=== PATIENT | male | born 1955 | race Caucasian/White ===

== ENCOUNTER 2017-06-11 02:59 | Inpatient (IN) | payer MEDICAID ==
[~2017-06-11] VITALS: Ht 185.4 cm; Wt 72.2 kg
[2017-06-11] VITALS (10 sets, daily range): BP systolic 99–142; BP diastolic 57–98; PULSE 96–108; RESP 17–27; TEMP 95.4–98.1; O2SAT 93–100
[~2017-06-11 02:59] MED LIST: TRAM50 PO
[2017-06-11] MEDS ORDERED: METH500T3 PO (03:10)
[2017-06-11] MEDS ORDERED: GABA600T PO (03:10)
--- NOTE | 2017-06-11 03:18 | PD ---
HPI Chief Complaint: Respiratory Distress Time Seen by Provider: 03:05 Travel History International Travel<30 days: No Contact w/Intl Traveler<30days: No Traveled to known affect area: No History of Present Illness HPI 62-year-old male complains of shortness of breath coughing congestion. Patient states that the symptoms started several days ago and is worse today. Patient states the cough is intermittent and productive. Patient denies any chest pain. Patient states that shortness breath is worse today. Patient denies any nausea vomiting diarrhea. Patient has history of COPD. Patient is a smoker. PFSH Past Medical History Anxiety: Yes Depression: Yes Cancer: No Cardiovascular Problems: No Chemotherapy: No COPD: Yes (WAS TOLD HAS EMPHYSEMA) Diabetes: No Diminished Hearing: No Genitourinary: No ( ) Musculoskeletal: Yes (CHRONIC BACK PAIN) Neurologic: Yes Respiratory: No Migraines: Yes Radiation Therapy: No Seizures: Yes (ABOUT 2 MONTHS AGO) Social History Alcohol Use: No Tobacco Use: Yes Substance Use: No Allergies-Medications (Allergen,Severity, Reaction): Coded Allergies: No Known Allergies (Unverified , 06/11/17) Reported Meds & Prescriptions Reported Meds & Active Scripts Active Reported Methocarbamol 500 Mg Tab 350 Mg PO BID Gabapentin 600 Mg Tab 600 Mg PO HS Review of Systems General / Constitutional: No: Fever Eyes: No: Visual changes HENT: No: Headaches Cardiovascular: No: Chest Pain or Discomfort Respiratory: Positive: Cough, Shortness of Breath Gastrointestinal: No: Abdominal Pain Genitourinary: No: Dysuria Musculoskeletal: No: Pain Skin: No Rash Neurologic: No: Weakness Psychiatric: No: Depression Endocrine: No: Polydipsia Hematologic/Lymphatic: No: Easy Bruising Physical Exam Narrative GENERAL: Well-nourished, well-developed patient. SKIN: Focused skin assessment warm/dry. HEAD: Normocephalic. EYES: No scleral icterus. No injection or drainage. NECK: Supple, trachea midline. No JVD or lymphadenopathy. CARDIOVASCULAR: Regular rate and rhythm without murmurs, gallops, or rubs. RESPIRATORY: Breath sounds equal bilaterally. No accessory muscle use. Patient has moderate rhonchi at the bases. No wheezes. GASTROINTESTINAL: Abdomen soft, non-tender, nondistended. MUSCULOSKELETAL: No cyanosis. Patient had +1 pitting edema lower extremity. BACK: Nontender without obvious deformity. No CVA tenderness. Neurologic exam normal. Data Data Last Documented VS Vital Signs Date Time Temp Pulse Resp B/P (MAP) Pulse Ox O2 Delivery O2 Flow Rate FiO2 06/11/17 03:29 99 Nasal Cannula 2.00 06/11/17 03:15 25 06/11/17 03:01 97.9 108 142/98 (113) Orders Orders Electrocardiogram (06/11/17 03:10) Complete Blood Count With Diff (06/11/17 03:10) Comprehensive Metabolic Panel (06/11/17 03:10) Creatine Kinase (Cpk) (06/11/17 03:10) Troponin I (06/11/17 03:10) B-Type Natriuretic Peptide (06/11/17 03:10) Prothrombin Time / Inr (Pt) (06/11/17 03:10) Act Partial Throm Time (Ptt) (06/11/17 03:10) Blood Culture (06/11/17 03:10) D-Dimer (06/11/17 03:10) Chest, Single Ap (06/11/17 03:10) Iv Access Insert/Monitor (06/11/17 03:10) Ecg Monitoring (06/11/17 03:10) Oximetry (06/11/17 03:10) Lactic Acid (06/11/17 03:10) Arterial Blood Gas (Abg) (06/11/17 03:03) Furosemide Inj (Lasix Inj) (06/11/17 05:00) Potassium Chloride (Kcl) (06/11/17 05:00) Labs Laboratory Tests Test 06/11/17 03:03 06/11/17 03:10 06/11/17 03:15 Lactic Acid Level 2.3 mmol/L White Blood Count 8.2 TH/MM3 Red Blood Count 3.69 MIL/MM3 Hemoglobin 10.5 GM/DL Hematocrit 33.1 % Mean Corpuscular Volume 89.9 FL Mean Corpuscular Hemoglobin 28.5 PG Mean Corpuscular Hemoglobin Concent 31.7 % Red Cell Distribution Width 17.2 % Platelet Count 119 TH/MM3 Mean Platelet Volume 10.0 FL Neutrophils (%) (Auto) 65.1 % Lymphocytes (%) (Auto) 22.1 % Monocytes (%) (Auto) 9.9 % Eosinophils (%) (Auto) 2.4 % Basophils (%) (Auto) 0.5 % Neutrophils # (Auto) 5.3 TH/MM3 Lymphocytes # (Auto) 1.8 TH/MM3 Monocytes # (Auto) 0.8 TH/MM3 Eosinophils # (Auto) 0.2 TH/MM3 Basophils # (Auto) 0.0 TH/MM3 CBC Comment DIFF FINAL Differential Comment Prothrombin Time 15.3 SEC Prothromb Time International Ratio 1.4 RATIO Activated Partial Thromboplast Time 30.2 SEC D-Dimer Quantitative (PE/DVT) 1.62 MG/L FEU Blood Urea Nitrogen 25 MG/DL Creatinine 1.13 MG/DL Random Glucose 106 MG/DL Total Protein 6.5 GM/DL Albumin 3.5 GM/DL Calcium Level 8.0 MG/DL Alkaline Phosphatase 158 U/L Aspartate Amino Transf (AST/SGOT) 23 U/L Alanine Aminotransferase (ALT/SGPT) 141 U/L Total Bilirubin 1.4 MG/DL Sodium Level 134 MEQ/L Potassium Level 3.8 MEQ/L Chloride Level 101 MEQ/L Carbon Dioxide Level 23.7 MEQ/L Anion Gap 9 MEQ/L Estimat Glomerular Filtration Rate 66 ML/MIN Total Creatine Kinase 61 U/L Troponin I 0.09 NG/ML B-Type Natriuretic Peptide 2863 PG/ML MDM Medical Decision Making Medical Screen Exam Complete: Yes Emergency Medical Condition: Yes Interpretation(s) Last Impressions Chest X-Ray 06/11/17309 Signed Impressions: Service Date/Time: May 03:19 - CONCLUSION: Probable CHF Juan Miguel Marroquin MD 4:57 AM. CBC within normal limit. Sodium 134. UN 25. Lactic acid 2.3. Calcium 8.0. Total bili 1.4. ALT 141. Alkaline phosphatase 158. Troponin 0.09. BNP 2863. INR 1.4. D-dimer 1.62. Differential Diagnosis Differential diagnosis including acute exacerbation COPD, bronchitis, pneumonia , PE, pneumothorax. Narrative Course 62-year-old male with shortness of breath. History of COPD. Clinically patient is in CHF. Lasix 40 mg IV given. Potassium KCl 20 mEq by mouth given. Diagnosis Primary Impression: CHF (congestive heart failure) Qualified Codes: I50.9 - Heart failure, unspecified Admitting Information Admitting Physician Requests: Admit Immanuel Yeager MD Jun 11, 2017 03:18
[2017-06-11 03:19] LABS: BLOOD GAS BASE EXCESS -3.5 mmol/L (-2-2); BLOOD GAS CARBOXYHEMOGLOBIN 3.4 % (0-4); BLOOD GAS HCO3 20 mmol/L (22-26); BLOOD GAS METHEMOGLOBIN 0.5 % (0-2); BLOOD GAS O2 HGB SATURATION 93 % (90-100); BLOOD GAS OXYGEN CONTENT 14.3 Vol % (12.0-20.0); BLOOD GAS PCO2 28 mmHg (38-42); BLOOD GAS PO2 79 mmHG (61-120); BLOOD GAS TOTAL HGB 10.9 G/DL (12.0-16.0); TEMP CORR TO 98.6
[2017-06-11 03:20] LABS: CRITICAL VALUE NO; DRAW SITE RT RADIAL; LITER FLOW 2 L/M; NUMBER OF ARTERIAL PUNCTURES 1; OXYGEN DEVICE NASAL CANNULA; STAT YES; ULNAR PULSE PRESENT
[2017-06-11 03:28] LABS: AUTOMATED NEUTROPHIL # 5.3 TH/MM3 (1.8-7.7); BASOPHIL % 0.5 % (0.0-2.0); EOSINOPHIL # 0.2 TH/MM3 (0-0.4); EOSINOPHIL % 2.4 % (0.0-4.0); HEMATOCRIT 33.1 % (39.0-51.0); HEMO FLAGS DIFF FINAL; LYMPH % 22.1 % (9.0-44.0); LYMPHOCYTE # 1.8 TH/MM3 (1.0-4.8); MEAN CELL VOLUME 89.9 FL (80.0-100.0); MEAN CORPUSCULAR HEMOGLOBIN 28.5 PG (27.0-34.0); MEAN CORPUSCULAR HGB CONC 31.7 % (32.0-36.0); MONO % 9.9 % (0.0-8.0); NEUT % 65.1 % (16.0-70.0); PLATELET COUNT 119 TH/MM3 (150-450); RED BLOOD COUNT 3.69 MIL/MM3 (4.50-5.90); RED CELL DISTRIBUTION WIDTH 17.2 % (11.6-17.2); WHITE BLOOD COUNT 8.2 TH/MM3 (4.0-11.0)
--- NOTE | 2017-06-11 03:43 | RADRPT ---
EXAM DATE/TIME: 06/11/2017 03:19 [place] COMPARISON: No previous studies available for comparison. INDICATIONS : Cough, shortness of breath for 2 weeks MEDICAL HISTORY : Chronic obstructive pulmonary disease. SURGICAL HISTORY : None. ENCOUNTER: Initial ACUITY: 2 weeks PAIN SCORE: 5/10 LOCATION: Bilateral chest FINDINGS: Hazy bilateral primarily lower lung zone pleuroparenchymal opacities may be edema area heart size perry ears to be upper limits of normal. Mild central vascular congestion and interstitial thickening is pr esent. CONCLUSION: Probable CHF Juan Miguel Marroquin MD on June 11, 2017 at 3:40 Board Certified Radiologist. This report was verified electronically.
[2017-06-11 03:47] LABS: APTT (PATIENT) 30.2 SEC (24.3-30.1); INTERNATIONAL NORMALIZED RATIO 1.4 RATIO; PROTHROMBIN TIME - PATIENT 15.3 SEC (9.8-11.6)
[2017-06-11 03:49] LABS: ALT (GPT) 141 U/L (12-78); ANION GAP 9 MEQ/L (5-15); AST (GOT) 23 U/L (15-37); BICARBONATE 23.7 MEQ/L (21.0-32.0); BLOOD UREA NITROGEN 25 MG/DL (7-18); CHLORIDE 101 MEQ/L (98-107); GLOMERULAR FILTRATION RATE 66 ML/MIN (>89); POTASSIUM 3.8 MEQ/L (3.5-5.1); SODIUM (NA) 134 MEQ/L (136-145)
[2017-06-11 03:53] LABS: ALKALINE PHOSPHATASE 158 U/L (45-117); TOTAL BILIRUBIN ADULT 1.4 MG/DL (0.2-1.0)
[2017-06-11 03:54] LABS: CREATINE KINASE 61 U/L (39-308)
[2017-06-11] MEDS ORDERED: FUROSEMIDE 40 MG/4 ML VIAL IV PUSH ONE (05:00)
[2017-06-11] MEDS ORDERED: POTASSIUM CHLORIDE 20 MEQ CONTROLLED RELEASE TAB PO ONE (05:00)
[2017-06-11] MEDS ORDERED: SODIUM CHLORIDE 0.9% FLUSH 10 ML FLUSH IV FLUSH PRN (05:15)
[2017-06-11] MEDS ORDERED: RESP: IPRATROPIUM 0.5 MG/2.5 ML NEB NEB PRN (05:15)
[2017-06-11] MEDS ORDERED: NALOXONE HCL 0.4 MG/ML AMP IV PUSH PRN (05:15)
--- NOTE | 2017-06-11 08:36 | HHI.HP ---
[facility] Mer[facility] MD Admission Diagnosis CHF Diagnoses: Chief Complaint: Shortness of breath Travel History International Travel<30 Days: No Contact w/Intl Traveler <30 Da: No Traveled to Known Affected Are: No History of Present Illness 62-year-old male with a past medical history of COPD and chronic back pain who presented for shortness of breath. The patient states that he presented because of his COPD. He has been having shortness of breath. He states he was diagnosed with COPD by his PCP, Dr. Collins. He does not take any medications at home for COPD. He denies any recent illness, fever, chills. He does continue to smoke. He has a chronic dry cough, unchanged. He denies any history of heart disease. He denies any chest pain. He has noticed that his legs are more swollen over the past week. He uses 2 pillows to sleep at night. The patient endorses shortness of breath. He says he is able to lay flat on his back. He does endorse a chronic cough. He has noticed lower extremity swelling. He continues to smoke. Review of Systems Except as stated in HPI: all other systems reviewed are Neg Past Family Social History Past Medical History COPD Chronic back pain Past Surgical History None Reported Medications Reported Methocarbamol 500 Mg Tab 350 Mg PO BID Gabapentin 600 Mg Tab 600 Mg PO HS Allergies: Coded Allergies: No Known Allergies (Unverified , 06/11/17) Active Ordered Medications Current Medications Medications (Trade) Dose Ordered Sig/Rosie Route Start Time Stop Time Status Last Admin (NS Flush) 2 ml UNSCH PRN IV FLUSH 06/11/17 05:15 (NS Flush) 2 ml BID IV FLUSH 06/11/17 09:00 (Narcan Inj) 0.4 mg UNSCH PRN IV PUSH 06/11/17 05:15 (Lasix Inj) 40 mg BID@09,18 IV PUSH 06/11/17 09:00 (Atrovent Neb) 0.5 mg Q2HR NEB PRN NEB 06/11/17 05:15 (Atrovent Neb) 0.5 mg Q6HR NEB NEB 06/11/17 10:00 (Pneumovax-23 Inj) 25 mcg ONCE ONCE IM 06/12/17 10:00 06/12/17 10:01 (Flu (Quadrivalent) Vaccine Inj) 0.5 ml ONCE ONCE IM 06/12/17 10:00 06/12/17 10:01 Family History Reviewed, denies any family history of heart disease or diabetes Social History Current tobacco use Denies any alcohol or drug use Physical Exam Vital Signs Vital Signs Date Time Temp Pulse Resp B/P (MAP) Pulse Ox O2 Delivery O2 Flow Rate FiO2 06/11/17 07:28 95.4 107 27 126/89 (101) 99 06/11/17 06:26 06/11/17 06:05 98.1 106 17 128/74 (92) 100 06/11/17 05:48 97.5 105 24 131/84 (100) 100 Nasal Cannula 2.00 06/11/17 03:29 99 Nasal Cannula 2.00 06/11/17 03:15 25 99 Nasal Cannula 2.00 06/11/17 03:01 97.9 108 25 142/98 (113) 99 Physical Exam GENERAL: Well-developed well-nourished. In no acute distress. SKIN: Warm and dry. No lesions noted. HEENT: Normocephalic. Pupils equal and round. Mucous membranes pink and moist. CARDIOVASCULAR: Regular rate and rhythm. No murmur appreciated. RESPIRATORY: No accessory muscle use. Clear to auscultation. Bibasilar crackles. GASTROINTESTINAL: Abdomen soft, non-tender, nondistended. Bowel sounds x4. MUSCULOSKELETAL: No obvious deformities. No clubbing or cyanosis. 1+ bilateral lower extremity pitting edema. NEUROLOGICAL: Awake and alert. No focal neurological deficits. Moves upper and lower extremities spontaneously. Normal speech. PSYCHIATRIC: Appropriate mood and affect; insight and judgment normal. Laboratory Laboratory Tests Test 06/11/17 03:03 06/11/17 03:10 06/11/17 03:15 Blood Gas Puncture Site RT RADIAL Blood Gas Patient Temperature 98.6 Blood Gas HCO3 20 Blood Gas Base Excess -3.5 Blood Gas Oxygen Saturation 93 Arterial Blood pH 7.46 Arterial Blood Partial Pressure CO2 28 Arterial Blood Partial Pressure O2 79 Arterial Blood Oxygen Content 14.3 Arterial Blood Carboxyhemoglobin 3.4 Arterial Blood Methemoglobin 0.5 Blood Gas Hemoglobin 10.9 Oxygen Delivery Device NASAL CANNULA Blood Gas Liter Flow 2 Lactic Acid Level 2.3 White Blood Count 8.2 Red Blood Count 3.69 Hemoglobin 10.5 Hematocrit 33.1 Mean Corpuscular Volume 89.9 Mean Corpuscular Hemoglobin 28.5 Mean Corpuscular Hemoglobin Concent 31.7 Red Cell Distribution Width 17.2 Platelet Count 119 Mean Platelet Volume 10.0 Neutrophils (%) (Auto) 65.1 Lymphocytes (%) (Auto) 22.1 Monocytes (%) (Auto) 9.9 Eosinophils (%) (Auto) 2.4 Basophils (%) (Auto) 0.5 Neutrophils # (Auto) 5.3 Lymphocytes # (Auto) 1.8 Monocytes # (Auto) 0.8 Eosinophils # (Auto) 0.2 Basophils # (Auto) 0.0 CBC Comment DIFF FINAL Differential Comment Prothrombin Time 15.3 Prothromb Time International Ratio 1.4 Activated Partial Thromboplast Time 30.2 D-Dimer Quantitative (PE/DVT) 1.62 Blood Urea Nitrogen 25 Creatinine 1.13 Random Glucose 106 Total Protein 6.5 Albumin 3.5 Calcium Level 8.0 Alkaline Phosphatase 158 Aspartate Amino Transf (AST/SGOT) 23 Alanine Aminotransferase (ALT/SGPT) 141 Total Bilirubin 1.4 Sodium Level 134 Potassium Level 3.8 Chloride Level 101 Carbon Dioxide Level 23.7 Anion Gap 9 Estimat Glomerular Filtration Rate 66 Total Creatine Kinase 61 Troponin I 0.09 B-Type Natriuretic Peptide 2863 Date/Time Source Procedure Growth Status 06/11/17 03:15 Blood Peripheral Aerobic Blood Culture Pending Received 06/11/17 03:15 Blood Peripheral Anaerobic Blood Culture Pending Received Result Diagram: 06/11/1731406/11/17314 Imaging Last Impressions Chest X-Ray 06/11/17309 Signed Impressions: Service Date/Time: May 03:19 - CONCLUSION: Probable CHF MD Moses Parham VTE Risk Assessment Moses VTE Risk Assessment: Mod/High Risk (score >= 2) Caprini Risk Assessment Model Point Value = 1 Point Value = 2 Point Value = 3 Point Value = 5 Age 41-60 Minor surgery BMI > 25 kg/m2 Swollen legs Varicose veins or History of unexplained or recurrent spontaneous Oral contraceptives or hormone replacement Sepsis (< 1 month) Serious lung disease, including pneumonia (< 1 month) Abnormal pulmonary function Acute myocardial infarction Congestive heart failure (< 1 month) History of inflammatory bowel disease Medical patient at bed rest Age 61-74 Arthroscopic surgery Major open surgery (> 45 min) Laparoscopic surgery (> 45 min) Malignancy Confined to bed (> 72 hours) Immobilizing plaster cast Central venous access Age >= 75 History of VTE Family history of VTE Factor V Leiden Prothrombin [id number] Lupus anticoagulant Anticardiolipin antibodies Elevated serum homocysteine Heparin-induced thrombocytopenia Other congenital or acquired thrombophilia Stroke (< 1 month) Elective arthroplasty Hip, pelvis, or leg fracture Acute spinal cord injury (< 1 month) Prophylaxis Regimen Total Risk Factor Score Risk Level Prophylaxis Regimen 0-1 Low Early ambulation 2 Moderate Order ONE of the following: *Sequential Compression Device (SCD) *Heparin 5000 units SQ BID 3-4 Higher Order ONE of the following medications: *Heparin 5000 units SQ TID *Enoxaparin/Lovenox 40 mg SQ daily (WT < 150 kg, CrCl > 30 mL/min) *Enoxaparin/Lovenox 30 mg SQ daily (WT < 150 kg, CrCl > 10-29 mL/min) *Enoxaparin/Lovenox 30 mg SQ BID (WT < 150 kg, CrCl > 30 mL/min) AND/OR *Sequential Compression Device (SCD) 5 or more Highest Order ONE of the following medications: *Heparin 5000 units SQ TID (Preferred with Epidurals) *Enoxaparin/Lovenox 40 mg SQ daily (WT < 150 kg, CrCl > 30 mL/min) *Enoxaparin/Lovenox 30 mg SQ daily (WT < 150 kg, CrCl > 10-29 mL/min) *Enoxaparin/Lovenox 30 mg SQ BID (WT < 150 kg, CrCl > 30 mL/min) AND *Sequential Compression Device (SCD) Assessment and Plan Assessment and Plan 62-year-old male with a past medical history of COPD and chronic back pain who presented for shortness of breath Acute congestive heart failure, new onset: On exam pulmonary crackles and lower extremity edema. Chest x-ray personally reviewed with cardiomegaly and edema. BNP 2863. -Continue diuresis with IV Lasix and monitor intake and output and electrolytes -Check echocardiogram -Start carvedilol Cardiology consult appreciated. Consider stress test. Continue diuresis. Echocardiogram pending. Elevated troponin: Troponin 0.09, no complaints of chest pain, possibly due to CHF as above. EKG reviewed with new lateral T-wave inversions. -Start daily aspirin -Consult cardiology Possible stress test per cardiology. COPD: Chronic, does not seem to be in acute exacerbation. -Continue scheduled and as needed ipratropium with borderline tachycardia -O2 as needed Continue oxygen and nebs as needed. Encourage ambulation. Chronic back pain: Stable. -Continue home gabapentin and Robaxin DVT prophylaxis: SCDs Discussed Condition With Patient, Dr. Preez Attending Statement The exam, history, and the medical decision-making described in the above note were completed with the assistance of the mid-level provider. I reviewed and agree with the findings presented. I attest that I had a [id number] encounter with the patient on the same day, and personally performed and documented my assessment and findings in the medical record. Chino Tee Jun 11, 2017 08:36 Vamsi Perez DO Jun 11, 2017 15:35
[2017-06-11] MEDS: FUROSEMIDE 40 MG/4 ML VIAL IV PUSH SCH ×2 (09:00→18:00)
[2017-06-11] MEDS ORDERED: METHOCARBAMOL 500 MG TAB PO SCH (09:00)
[2017-06-11] MEDS: RESP: IPRATROPIUM 0.5 MG/2.5 ML NEB NEB SCH ×3 (09:58→21:12)
--- NOTE | 2017-06-11 10:45 | MB ---
cc: KAROL ELLIS DATE OF CONSULTATION 06/11/2017 INDICATION Elevated troponin, congestive heart failure. HISTORY OF PRESENT ILLNESS This is a 62-year-old gentleman with a prior history of COPD, chronic back pain, but no prior history of known heart disease. He presented to the emergency department with progressive shortness of breath. He has longstanding COPD, but does not take any routine medications at home for this. He is a long-term tobacco user. He has had a non-nonproductive dry cough. He has noticed a little bit of puffiness in his feet and progressive shortness of breath which brought him into the emergency department. There, his BNP was elevated. Crackles were noted on exam he and he was diagnosed with congestive heart failure. Echocardiogram was ordered, chest x-ray and intravenous Lasix. The patient symptomatically states that he has been feeling a little bit better here today this morning after some nebulizers and I suspect diuresis. Troponins are in the intermediate range. We are consulted for further recommendations. He denies any chest pain or prior cardiac history or workup. PAST MEDICAL HISTORY COPD, chronic back pain. MEDICATIONS 1. Methocarbamol 2. Gabapentin ALLERGIES NO KNOWN DRUG ALLERGIES. REVIEW OF SYSTEMS A 12-point review of systems was performed and is negative unless as otherwise noted in the history of illness. ALLERGIES NO KNOWN DRUG ALLERGIES. FAMILY HISTORY Negative family history of early coronary disease or sudden cardiac . SOCIAL HISTORY Denies any alcohol or drug use. Does report tobacco use of a pack a day. PHYSICAL EXAM VITAL SIGNS: Temperature 95, pulse is 107, blood pressure 126/89 mmHg. GENERAL: Alert and oriented x3 in no acute distress. HEENT: Exam shows pupils reactive to light, extraocular movements are intact. NECK: No elevation of jugular venous distention. No thyromegaly or lymphadenopathy. No carotid bruits. LUNGS: Bibasilar crackles, a very fine expiratory wheeze. CARDIOVASCULAR: Regular. No murmurs, rubs or gallops. ABDOMEN: Exam is nontender and nondistended. Equal bowel sounds. No hepatosplenomegaly. EXTREMITIES: No clubbing, cyanosis or edema. Good peripheral pulses. NEUROLOGIC: Cranial nerves intact. Motor and sensory grossly intact. LABORATORY DATA WBC 8.2, hemoglobin 10.5, platelet count 119, INR is 1.4,. Sodium 134, potassium 3.8, BUN 25, creatinine is 1.13, troponin 0.09, BNP 2863. Electrocardiogram, borderline intraventricular conduction delay with some T-wave inversions anterolaterally. ASSESSMENT 1. Intermediate troponin elevation 2. Congestive heart failure 3. COPD PLAN The patient has minimal trace edema with bibasilar crackles present. Echocardiogram has been done, but has not been up-loaded to read yet. We will have to determine whether he has systolic or diastolic heart failure. His troponin is in the intermediate range. I suspect it may be more demand mediated than thrombotic mediated. We will trend the troponin. His electrocardiogram does show some T-wave inversions which is new compared to 2012, but his QRS is slightly wider and this may be secondary to conduction delay repolarization abnormality. At this point, we are leaning more towards a stress test tomorrow, but we will see how the echocardiogram comes back with evaluation for his ejection fraction and in addition to his at troponin trend. MD MELANIE Branch/PRATIMA /10:27 AM /10:36 AM
--- NOTE | 2017-06-11 12:47 | ECHRPT ---
Indication: Heart failure, unspecified CONCLUSIONS Normal left ventricular size. Wall thickness is normal. The left ventricular systolic function is severely reduced with an estimated ejection fraction in th e range of 20-25%. The right ventricular size is normal. The left atrial size is [id number] dilated. Severe mitral valve regurgitation. There is moderate tricuspid regurgitation. Trivial pulmonary valve regurgitation. BP: 128 / 74 HR: 106 Rhythm: MEASUREMENTS (Male / Female) Normal Values Technical Quality:Good 2D ECHO LV Diastolic Diameter PLAX 6.0 cm 4.2 - 5.9 / 3.9 - 5.3 cm LV Systolic Diameter PLAX 5.4 cm IVS Diastolic Thickness 1.3 cm 0.6 - 1.0 / 0.6 - 0.9 cm LVPW Diastolic Thickness 1.0 cm 0.6 - 1.0 / 0.6 - 0.9 cm LV Relative Wall Thickness 0.4 RV Internal Dim ED PLAX 3.1 cm M-MODE Aortic Root Diameter MM 3.1 cm LA Systolic Diameter MM 5.5 cm LA Ao Ratio MM 1.8 AV Cusp Separation MM 1.8 cm DOPPLER Mitral E Point Velocity 163.0 cm/s Mitral A Point Velocity 78.7 cm/s Mitral E to A Ratio 2.1 TR Peak Velocity 324.0 cm/s TR Peak Gradient 42.0 mmHg Right Atrial Pressure 10.0 mmHg Pulmonary Artery Systolic Pressu 52.0 mmHg Right Ventricular Systolic Press 52.0 mmHg FINDINGS LEFT VENTRICLE Normal left ventricular size. Wall thickness is normal. The left ventricular systolic function is severely reduced with an estimated ejection fraction in th e range of 20-25%. RIGHT VENTRICLE The right ventricular size is normal. LEFT ATRIUM The left atrial size is [id number] dilated. RIGHT ATRIUM The right atrial size is normal. MITRAL VALVE Structurally normal mitral valve. Severe mitral valve regurgitation. AORTIC VALVE Trileaflet aortic valve. No aortic valve stenosis or regurgitation. TRICUSPID VALVE There is moderate tricuspid regurgitation. PULMONARY VALVE Trivial pulmonary valve regurgitation. PERICARDIUM No pericardial effusion. Tapan Clinton MD, FACC (Electronically Signed) Final Date:11 June 2017 12:46
[2017-06-11] MEDS: CARVEDILOL 3.125 MG TAB PO SCH ×2 (13:22→20:39)
[2017-06-11] MEDS: SODIUM CHLORIDE 0.9% FLUSH 10 ML FLUSH IV FLUSH SCH ×2 (13:23→20:40)
[2017-06-11] MEDS: ASPIRIN 81 MG CHEW TAB CHEW SCH (13:23)
--- NOTE | 2017-06-11 13:50 | EKG ---
Date Performed: 06/11/2017 Time Performed: 03:04:10 PTAGE: 62 years EKG: SINUS TACHYCARDIA POSSIBLE LEFT ATRIAL ENLARGEMENT MODERATE INTRAVENTRICULAR CONDUCTION DEL AY ST DEVIATION AND MODERATE T-WAVE ABNORMALITY, CONSIDER LATERAL ISCHEMIA ABNORMAL ECG Compared to PREVIOUS TRACING , the patient has developed the intraventricular conduction delay and th e nonspecific ST-T wave changes. The prior tracing was normal so the noted changes on the present tra cing are new and clinical correlation will be important. PREVIOUS TRACING DOCTOR: Dilma Lentz Interpretating Date/Time 06/11/2017 13:49:03
--- NOTE | 2017-06-11 14:56 | EKG ---
Date Performed: 06/11/2017 Time Performed: 09:16:46 PTAGE: 62 years EKG: SINUS TACHYCARDIA BORDERLINE LEFT AXIS DEVIATION NONSPECIFIC INTRAVENTRICULAR CONDUCTION D ELAY NONSPECIFIC ST/T-WAVE ABNORMALITY ABNORMAL RHYTHM ECG PREVIOUS TRACING : 06/11/2017 03.04 No significant change from previous tracing noted. DOCTOR: Esa Nascimento Interpretating Date/Time 06/11/2017 14:55:51
--- NOTE | 2017-06-11 18:43 | EKG ---
Date Performed: 06/11/2017 Time Performed: 16:31:13 PTAGE: 62 years EKG: Sinus rhythm NONSPECIFIC INTRAVENTRICULAR CONDUCTION DELAY ABNORMAL ECG NO PREVIOUS TRACING DOCTOR: Esa Nascimento Interpretating Date/Time 06/11/2017 18:41:33
[2017-06-11] MEDS: GABAPENTIN 300 MG CAP PO SCH (20:40)
[2017-06-12] VITALS (12 sets, daily range): BP systolic 109–120; BP diastolic 60–73; PULSE 77–99; RESP 18–20; TEMP 97.8–98.1; O2SAT 94–99
[2017-06-12] MEDS: RESP: IPRATROPIUM 0.5 MG/2.5 ML NEB NEB SCH ×2 (03:36→08:03)
[2017-06-12 07:22] LABS: AUTOMATED NEUTROPHIL # 4.5 TH/MM3 (1.8-7.7); BASOPHIL % 0.6 % (0.0-2.0); EOSINOPHIL # 0.2 TH/MM3 (0-0.4); EOSINOPHIL % 3.3 % (0.0-4.0); HEMATOCRIT 32.3 % (39.0-51.0); HEMO FLAGS DIFF FINAL; LYMPH % 27.2 % (9.0-44.0); MEAN CORPUSCULAR HEMOGLOBIN 28.1 PG (27.0-34.0); MEAN CORPUSCULAR HGB CONC 31.9 % (32.0-36.0); MONO % 7.8 % (0.0-8.0); NEUT % 61.1 % (16.0-70.0); PLATELET COUNT 111 TH/MM3 (150-450); RED BLOOD COUNT 3.67 MIL/MM3 (4.50-5.90); RED CELL DISTRIBUTION WIDTH 17.7 % (11.6-17.2); WHITE BLOOD COUNT 7.4 TH/MM3 (4.0-11.0)
[2017-06-12] MEDS: SODIUM CHLORIDE 0.9% FLUSH 10 ML FLUSH IV FLUSH SCH ×2 (08:09→21:16)
[2017-06-12] MEDS: FUROSEMIDE 40 MG/4 ML VIAL IV PUSH SCH ×2 (08:09→18:00)
[2017-06-12] MEDS: CARVEDILOL 3.125 MG TAB PO SCH ×2 (08:09→21:16)
[2017-06-12] MEDS: ASPIRIN 81 MG CHEW TAB CHEW SCH (08:10)
--- NOTE | 2017-06-12 08:31 | PD.CARD.PN ---
Subjective Subjective Remarks denies chest pain, breathing is stable (Stephen Rojas) Objective Medications Current Medications Medications (Trade) Dose Ordered Sig/Rosie Route Start Time Stop Time Status Last Admin (NS Flush) 2 ml UNSCH PRN IV FLUSH 06/11/17 05:15 (NS Flush) 2 ml BID IV FLUSH 06/11/17 09:00 06/12/17 08:09 (Narcan Inj) 0.4 mg UNSCH PRN IV PUSH 06/11/17 05:15 (Lasix Inj) 40 mg BID@,18 IV PUSH 06/11/17 09:00 06/12/17 08:09 (Atrovent Neb) 0.5 mg Q2HR NEB PRN NEB 06/11/17 05:15 (Atrovent Neb) 0.5 mg Q6HR NEB NEB 06/11/17 10:00 06/12/17 08:03 (Pneumovax-23 Inj) 25 mcg ONCE ONCE IM 06/12/17 10:00 06/12/17 10:01 (Flu (Quadrivalent) Vaccine Inj) 0.5 ml ONCE ONCE IM 06/12/17 10:00 06/12/17 10:01 (Neurontin) 600 mg HS PO 06/11/17 21:00 06/11/17 20:40 (Coreg) 3.125 mg BID PO 06/11/17 09:00 06/12/17 08:09 (Aspirin Chew) 81 mg DAILY CHEW 06/11/17 09:00 06/12/17 08:10 (Robaxin) 500 mg BID PRN PO 06/11/17 10:15 Vital Signs / I&O Vital Signs Date Time Temp Pulse Resp B/P (MAP) Pulse Ox O2 Delivery O2 Flow Rate FiO2 06/12/17 08:08 97.8 90 18 118/68 (85) 98 06/12/17 08:05 96 Nasal Cannula 3.00 06/12/17 05:17 88 06/12/17 03:44 98.1 87 18 109/71 (84) 99 06/12/17 00:15 92 06/11/17 23:44 98.0 96 18 118/75 (89) 97 06/11/17 21:13 98 Nasal Cannula 2.00 06/11/17 20:27 97.9 98 19 99/57 (71) 99 06/11/17 20:05 99 06/11/17 14:32 2.00 06/11/17 11:34 96.7 104 21 124/78 (93) 93 I/O 06/11/17 06/11/17 06/11/17 06/12/17 06/12/17 06/12/17 06:59 14:59 22:59 06:59 14:59 22:59 Intake Total 50 ml Output Total 400 ml Balance 50 ml -400 ml Intake Oral 50 ml Output Urine Total 400 ml Physical Exam GENERAL: Well-nourished, well-developed patient in no apparent distress. NECK: No JVD. No carotid bruit. CARDIOVASCULAR: Regular rate and rhythm. S1/S2 no murmur, rub, or gallop. RESPIRATORY: No accessory muscle use. expiratory wheezing to auscultation. Breath sounds equal bilaterally. GASTROINTESTINAL: Abdomen soft, non-tender, nondistended. MUSCULOSKELETAL: Extremities without clubbing, cyanosis, or edema. Laboratory Laboratory Tests Test 06/11/17 09:17 06/11/17 16:15 06/12/17 06:40 Total Creatine Kinase 65 U/L 60 U/L Troponin I 0.07 NG/ML 0.07 NG/ML White Blood Count 7.4 TH/MM3 Red Blood Count 3.67 MIL/MM3 Hemoglobin 10.3 GM/DL Hematocrit 32.3 % Mean Corpuscular Volume 88.0 FL Mean Corpuscular Hemoglobin 28.1 PG Mean Corpuscular Hemoglobin Concent 31.9 % Red Cell Distribution Width 17.7 % Platelet Count 111 TH/MM3 Mean Platelet Volume 8.4 FL Neutrophils (%) (Auto) 61.1 % Lymphocytes (%) (Auto) 27.2 % Monocytes (%) (Auto) 7.8 % Eosinophils (%) (Auto) 3.3 % Basophils (%) (Auto) 0.6 % Neutrophils # (Auto) 4.5 TH/MM3 Lymphocytes # (Auto) 2.0 TH/MM3 Monocytes # (Auto) 0.6 TH/MM3 Eosinophils # (Auto) 0.2 TH/MM3 Basophils # (Auto) 0.0 TH/MM3 CBC Comment DIFF FINAL Differential Comment (Stephen Rojas) Assessment and Plan Problem List: (1) Cardiomyopathy ICD Codes: I42.9 - Cardiomyopathy, unspecified (2) Mitral regurgitation ICD Codes: I34.0 - Nonrheumatic mitral (valve) insufficiency (3) CHF (congestive heart failure) ICD Codes: I50.9 - Heart failure, unspecified Status: Acute Assessment and Plan Echo shows EF 20% to 25% and severe MR, will proceed with coronary angiogram to r/o ischemia. (Stephen Rojas) Assessment and Plan plan HC today cardiomyopathy acute on chronic systolic CHF NSTEMI severe MR possible CT surg consult possible SHAUNA thursday cont med therapy (Tapan Clinton MD) Problem Qualifiers (1) CHF (congestive heart failure): Qualified Codes: I50.9 - Heart failure, unspecified Stephen Rojas Jun 12, 2017 08:31 Tapan Clinton MD Jun 12, 2017 13:22
[2017-06-12 08:47] LABS: BICARBONATE 26.8 MEQ/L (21.0-32.0); POTASSIUM 3.5 MEQ/L (3.5-5.1)
[2017-06-12 09:03] LABS: INDIRECT BILIRUBIN 0.6 MG/DL (0.0-0.8); TOTAL BILIRUBIN ADULT 1.2 MG/DL (0.2-1.0)
[2017-06-12] MEDS ORDERED: PNEUMOCOCCAL POLYVALENT INJ 25 MCG/0.5 ML SYR IM ONE (10:00)
[2017-06-12] MEDS ORDERED: INFLUENZA VIRUS VACCINE (QUADRIVALENT) 0.5 ML SYR IM ONE (10:00)
--- NOTE | 2017-06-12 11:16 | RADRPT ---
EXAM DATE/TIME: 06/12/2017 09:41 [facility] COMPARISON: No previous studies available for comparison. INDICATIONS : Bilateral leg swelling. MEDICAL HISTORY : Seizures. Migaraine. COPD. SURGICAL HISTORY : Left hand surgery. Right knee surgery. ENCOUNTER: Initial ACUITY: 1 day PAIN SCORE: 0/10 LOCATION: Bilateral legs. TECHNIQUE: Venous ultrasound of the left and right leg was performed from the inguinal ligament to the proximal calf. Real-time, color Doppler and spectral tracing, compression and augmentation techniques were us ed. FINDINGS: RIGHT LEG: There is normal compressibility of the deep venous system from the inguinal region to the proximal ca lf. No echogenic clot is seen in the lumen of the common femoral, femoral, popliteal, and posterior tibial veins. There is a normal response of the venous system to proximal and distal augmentation an d respiration. LEFT LEG: There is normal compressibility of the deep venous system from the inguinal region to the proximal ca lf. No echogenic clot is seen in the lumen of the common femoral, femoral, popliteal, and posterior tibial veins. There is a normal response of the venous system to proximal and distal augmentation an d respiration. CONCLUSION: 1. No evidence of deep venous thrombosis. Jonathan Saez MD on June 12, 2017 at 11:14 Board Certified Radiologist. This report was verified electronically.
--- NOTE | 2017-06-12 13:03 | RADRPT ---
EXAM DATE/TIME: 06/12/2017 12:23 [facility] COMPARISON: No previous studies available for comparison. INDICATIONS : Dyspnea. DOSE: 8.6 mCi Tc99m MAA IV 1.37 mCi Tc99m DTPA aerosol MEDICAL HISTORY : Chronic obstructive pulmonary disease. Hypertension. SURGICAL HISTORY : Hand fracture repair ENCOUNTER: Initial ACUITY: 1 day PAIN SCALE: 0/10 LOCATION: TECHNIQUE: Following five minutes of tidal breathing of DTPA aerosol, planar images of the lungs were performed in eight projections. The patient was then injected with MAA, and eight-view perfusio n scan was performed. FINDINGS: Minimal central airway deposition is evident. There is symmetrical perfusion to both lungs. . CONCLUSION: Low probably for pulmonary embolism. Dyspnea is related to ventilation and not perfu fitz. Allan Morin MD FACR on June 12, 2017 at 13:00 Board Certified Radiologist. This report was verified electronically.
--- NOTE | 2017-06-12 13:37 | HHI.PR ---
Subjective Remarks Follow-up for new onset CHF and MR. The patient feels a little less short of breath today. He reports good urine output. Lower extremity swelling is improving some. Going for heart catheterization today. All questions answered to the best my ability. Objective Vitals Vital Signs Date Time Temp Pulse Resp B/P (MAP) Pulse Ox O2 Delivery O2 Flow Rate FiO2 06/12/17 12:12 98.0 77 20 120/60 (80) 96 06/12/17 08:08 97.8 90 18 118/68 (85) 98 06/12/17 08:05 96 Nasal Cannula 3.00 06/12/17 05:17 88 06/12/17 03:44 98.1 87 18 109/71 (84) 99 06/12/17 00:15 92 06/11/17 23:44 98.0 96 18 118/75 (89) 97 06/11/17 21:13 98 Nasal Cannula 2.00 06/11/17 20:27 97.9 98 19 99/57 (71) 99 06/11/17 20:05 99 06/11/17 14:32 2.00 I/O 06/11/17 06/11/17 06/11/17 06/12/17 06/12/17 06/12/17 07:00 15:00 23:00 07:00 15:00 23:00 Intake Total 50 ml Output Total 400 ml Balance 50 ml -400 ml Intake Oral 50 ml Output Urine Total 400 ml Result Diagram: 06/12/17 0640 06/12/17 0640 Imaging Last Impressions Lower Extremity Ultrasound 06/12/17 0000 Signed Impressions: Service Date/Time: Monday, June 12, 2017 09:41 - CONCLUSION: 1. No evidence of deep venous thrombosis. Jonathan Saez MD Chest X-Ray 06/11/17 0310 Signed Impressions: Service Date/Time: May 03:19 - CONCLUSION: Probable CHF Juan Miguel Marroquin MD Objective Remarks GENERAL: Well-developed well-nourished. In no acute distress. SKIN: Warm and dry. No lesions noted. HEENT: Normocephalic. Pupils equal and round. Mucous membranes pink and moist. CARDIOVASCULAR: Regular rate and rhythm. No murmur appreciated. RESPIRATORY: No accessory muscle use. Clear to auscultation. Improving bibasilar crackles with occasional wheeze. GASTROINTESTINAL: Abdomen soft, non-tender, nondistended. Bowel sounds x4. MUSCULOSKELETAL: No obvious deformities. No clubbing or cyanosis. Improving 1+ bilateral lower extremity pitting edema. NEUROLOGICAL: Awake and alert. No focal neurological deficits. Moves upper and lower extremities spontaneously. Normal speech. PSYCHIATRIC: Appropriate mood and affect; insight and judgment normal. A/P Assessment and Plan 62-year-old male with a past medical history of COPD and chronic back pain who presented for shortness of breath Acute congestive heart failure, new onset: On exam pulmonary crackles and lower extremity edema. Reviewed: chest x-ray with cardiomegaly and edema. BNP 2863. Echocardiogram with reduced systolic function, EF 20-25% with severe MR. -Continue diuresis with IV Lasix and monitor intake and output and electrolytes -Started carvedilol -Cardiology consulted, D/W Dr. Clinton, for catheterization with possible CT surgery consultation and SHAUNA Elevated troponin: Troponin 0.09, no complaints of chest pain, possibly due to CHF as above. EKG reviewed with new lateral T-wave inversions. -Started daily aspirin and beta fe -Consulted cardiology, planning for heart catheterization Elevated d-dimer: D-dimer elevated at 1.62, nonspecific but need to rule out PE with shortness of breath as above. -Check bilateral lower extremity Doppler showed no evidence of DVT -Checked VQ scan which was low probability for PE COPD: Chronic, does not seem to be in acute exacerbation. -Continue scheduled and as needed nebs -O2 as needed Chronic back pain: Stable. -Continue home gabapentin and Robaxin DVT prophylaxis: Chino Paredes Jun 12, 2017 13:37
[2017-06-12] MEDS ORDERED: HEPARIN-NS/PF INJ 1,000 ML ONE ×2 (13:56→14:04)
[2017-06-12] MEDS ORDERED: NITROGLYCERIN INJ 0 ML ONE (14:04)
[2017-06-12] MEDS ORDERED: MIDAZOLAM HCL 2 MG/2 ML VIAL ONE (14:04)
[2017-06-12] MEDS ORDERED: HEPARIN SODIUM - IV 10,000 UNITS/10 ML VIAL ONE (14:04)
[2017-06-12] MEDS ORDERED: ATROPINE SULFATE 1 MG/ML VIAL IV PUSH PRN (15:00)
[2017-06-12] MEDS ORDERED: BACITRACIN OINT 0.9 GM PKT TOP ONE (15:00)
[2017-06-12] MEDS ORDERED: METOCLOPRAMIDE HCL 10 MG/2 ML VIAL IV PUSH PRN (15:00)
[2017-06-12] MEDS ORDERED: SODIUM CHLOR 0.9% 250 ML INJ 250 ML IV PRN (15:00)
--- NOTE | 2017-06-12 15:02 | CATHPROC ---
[employer] HIS Report Study Information Study Number Admission Scheduled Start Study Start [id number] Jun 11 2017 5:06AM 06/12/2017 Jun 12 2017 1:56PM [place] Service Cardiac Catheterization Admit Source Facility Department Emergency department [facility] - Home Health Clinical Liaison Physician and Clinical Staff Initial Tapan Grimes Fashion Buyer Cristiane Villegas,RN Recorder Stephania Hatch,RT(R) (BS) Scrub Sawyer Castañeda RCIS(BS) Procedures Performed Procedure Location (Site) Vessel Name Angiogram LV LV Ventricle Coronary Angiograms LCA Left Coronary Coronary Angiograms RCA Right Coronary Coronary Angiograms NEGRON NEGRON L Heart Cath Equipment Time Fish Rod Maker Description Size Mfg Part Number Used/Scraped ARROW INTERNATIONAL CATHETER, FR.7 BALLOON [id number] 14:06 FR 7 Used INC. WEDGE PRESSURE *[id number] TRANSDUCER, TRNeurAxonAVE [id number] 14:06 KITCHEN SINHA * Used W/STOCKCOCK *[id number] 14:42 CARDIVA MEDICAL VASCADE, FR5 CLOSURE SYSTEM FR 5 Used *[id number] 14:47 CARDIVA MEDICAL VASCADE, FR6 CLOSURE SYSTEM FR 6\7 Used *[id number] *[id number] [id number] *[id number] [id number] *[id number] 14:06 MEDLINE INDUSTRIES PACK, CCL CUSTOM * Used *[id number] 14:06 Amimon PACER PEN, SKIN DUAL W/ RULER * Used *[id number] 14:06 Audit Verify WIRE, 3MMJ .035 180CM 180CM Used *[id number] 14:06 NAMIC MANIFOLD, 2 PORT * Used *[id number] 14:06 NAMIC MANIFOLD, 4 PORT * Used *[id number] 14:06 NYCOMED OMNIPAQUE, 350 MG, 150ML 150ML [id number] 14:06 ARREGUIN MEDICAL BLANKET,WARM AIR CCL * Used *[id number] 14:06 TERUMO MEDICAL SHEATH, FR5 TERUMO (10CM) FR 5 Used *[id number] 14:06 TERUMO MEDICAL SHEATH, FR7 TERUMO (10CM) FR 7 Used *[id number] History: Allergies Allergy Reaction No Known Allergies History: Risk Factors Family History of Hypertension Dyslipidemia Previous MA Previous Heart Failure Premature CAD No No No No Yes Prior Valve Prior PCI Prior CABG Surgery No No No Cerebrovascular Peripheral Artery Chronic Lung On Dialysis Diabetes Disease Disease Disease No No No Yes No History: Symptoms/Diagnosis Selection Items SOB History: Stress Tests Stress or Imaging Studies Performed No History: Other Current Smoker Method Packs a Day Years Used Pack Years Yes Cigarettes 1 50 50 Labs Hgb (g/dl) Hct (%) WBC (l/cumm) Platelets (thousands) 11.60-17.00 35.00-51.00 4.00-11.00 150.00-450.00 10.5 33.1 8.2 119 Glucose (mg/dl) BUN (mg/dl) Creatinine (mg/dl) BUN:Creatinine (1:x) 74.00-106.00 7.00-18.00 0.50-1.30 10.00-20.00 106 25 1.1 22.7 Na (meq/l) K (meq/l) 136.00-145.00 3.50-5.10 134 3.8 INR (PTT:PT) 0.90-1.10 1.4 CPK-MB (ng/ML) 0.50-3.60 Not Drawn Medication Medication Total Dose (Bolus/Oral) Medication Total Dosage/Unit 1% XYLOCAINE 20 mL FENTANYL 75 mcg VERSED 2 mg Medications (Bolus/Oral) Medication Time Given Dosage/Unit Administered By Reason VERSED 06/12/2017 2:12:37 PM 1 mg Cristiane Villegas 1 mg VERSED given in lab by Cristiane Villegas RN in Left Antecubital via Peripheral IV. FENTANYL 06/12/2017 2:13:43 PM 25 mcg Cristiane Villegas 25 mcg FENTANYL given in lab by Cristiane Villegas, CHRIS in Left Antecubital via Peripheral IV. 1% XYLOCAINE 06/12/2017 2:16:28 PM 20 mL Tapan Clinton 20 mL 1% XYLOCAINE given in lab by Tapan Clinton in Right Groin via Subcutaneous. VERSED 06/12/2017 2:17:51 PM 1 mg Cristiane Villegas 1 mg VERSED given in lab by Cristiane Villegas, CHRIS in Left Antecubital via Peripheral IV. FENTANYL 06/12/2017 2:18:02 PM 50 mcg Cristiane Villegas 50 mcg FENTANYL given in lab by Cristiane Villegas, CHRIS in Left Antecubital via Peripheral IV. Medication (Drip) Medication Time Given Dosage/Unit Concentration/Unit Diluent (ml) Solution IV Solutions 06/12/2017 2:01:35 PM 0 mL (IV) 500 NaCl .9 IV Solutions given in lab by Cristiane Villegas, RN in Left Antecubital via Peripheral IV. Pump/Drip Lex w = 100 ml/hr using NaCl .9. Initial Case Assessment Cardiovascular HR Rhythm NIBP Chest Pain 79 reg 118/75 0 Edema Present Skin color Skin None Normal Warm Dry Circulatory - Right Pulses Dorsalis Pedis Femoral 1 1 Scale (0,1,2,3,4,d) Circulatory - Left Pulses Dorsalis Pedis Femoral 1 1 Scale (0,1,2,3,4,d) Circulatory - Lower Extremities Color Lower Right Color Lower Left Normal Normal Neurological State Oriented to time-place- Alert Moves all extremities person Respiration - General Respiration Rate SpO2 (%) (B/min) 11 95 Chronological Log Time Study Chronological Log 13:55:19 Patient Name, D.O.B, / Armband Verified By R.N. 13:55:30 Patient arrived via Bed. 14:01:16 Consent signed by the physician and the patient and verified by the Home Health Clinical Liaison staff. 14:01:16 Pre-op and post- op instructions given; patient acknowledges understanding of instructions. 14:01:17 Verbal Stimulation=2 Physical Stimulation=2 Airway=2 Respiration=2 TOTAL=8. (0=absent, 1=li mited, 2=present) 14:01:18 Presedation assessment performed by Home Health Clinical Liaison RN. 14:01:28 Patient has been NPO for More than 6Hrs. 14:01:31 Skin Breakdown none per pt 14:01:32 Patient Warmer Placed on the Table. 14:01:33 Konrad Prominences Protected 14:01:34 A # 20 IV was noted in the Antecubital (left). Grade = 0 IV Solutions given in lab by Cristiane Villegas, RN in Left Antecubital via Peripheral IV. Pump/Dr ip Flow = 100 ml/hr 14:01:35 using NaCl .9. 14:01:36 History and physical on the chart or being dictated. Assessment: Initial Case, HR=79 BPM, Rhythm=reg, DPOF=568/75 mmhg, Chest Pain=0, Edema=None, Co derick=Normal, Skin = Warm, Dry Right Pulses: Zackery Ped=1, Femoral=1 Left Pulses: Zackery Ped=1, Femoral=1 14:01:39 Lower Right Extremities: Color=Normal Lower Left Extremities: Color=Normal Neurological: State=Alert, Ox3, PEREIRA Respiration: Resp=11 B/min, SpO2=95 % 14:01:41 Table restraints applied according to hospital policy Vitals capture started with the following parameters, Patient=Adult, Interval=5 min, Initial Pr olldeb=330 mmHg, 14:01:57 Deflation Rate=5 mmHg, Cuff placed on Right Arm 14:02:30 HR=29 bpm, GMKM=884/77 mmhg, SpO2=93.0 %, Resp=0 B/min, Pain=0, Angela=10, Stock=2 14:03:53 Bilateral groins prepped with 2% chlorhexidine, and draped after a 3 minute waiting time. 14:07:27 HR=80 bpm, DXST=640/75 mmhg, SpO2=96.0 %, Resp=10 B/min, Pain=0, Angela=10, Stock=2 14:10:11 Pressure channel 1 zeroed. 14:11:00 Reference ECG taken 14:12:28 HR=90 bpm, MBQI=718/75 mmhg, SpO2=95.0 %, Resp=15 B/min, Pain=0, Angela=10, Stock=2 14:12:37 1 mg VERSED given in lab by Cristiane Villegas, CHRIS in Left Antecubital via Peripheral IV. 14:13:33 Pressure channel 2 zeroed. 14:13:43 25 mcg FENTANYL given in lab by Cristiane Villegas, CHRIS in Left Antecubital via Peripheral IV. Time Out. Correct patient, correct procedure, correct physician, power injector not loaded with contrast with surgical 14:15:24 team present. Time Out Concurred by MD and individual staff in procedure. 14:15:33 Case Start 14:16:28 20 mL 1% XYLOCAINE given in lab by Tapan Clinton in Right Groin via Subcutaneous. 14:17:27 HR=81 bpm, PQIH=564/74 mmhg, SpO2=99.0 %, Resp=13 B/min, Pain=0, Angela=10, Stock=2 14:17:51 1 mg VERSED given in lab by Cristiane Villegas, CHRIS in Left Antecubital via Peripheral IV. 14:18:02 50 mcg FENTANYL given in lab by Cristiane Villegas, CHRIS in Left Antecubital via Peripheral IV. 14:22:28 HR=81 bpm, IHMG=993/76 mmhg, SpO2=98.0 %, Resp=10 B/min, Pain=0, Angela=10, Stock=2 14:26:22 Access site was Right Femoral Artery. 14:27:29 HR=81 bpm, CGLK=679/73 mmhg, SpO2=96.0 %, Resp=0 B/min, Pain=0, Angela=10, Stock=2 14:28:01 A SHEATH, FR5 TERUMO (10CM) FR 5 was advanced into the Fem Art (right) using the Percutaneo us technique. 14:28:12 A SHEATH, FR7 TERUMO (10CM) FR 7 was advanced into the Fem Vein (right) using the Percutane ous technique. 14:29:09 A CATHETER, FR.7 BALLOON WEDGE PRESSURE FR 7 was inserted via Fem Vein (right) Recorded Pressure: RA, HR=82, Condition=Condition 1 14:29:57 (Right Atrium) RA 1413/11 Recorded Pressure: RV, HR=84, Condition=Condition 1 14:30:16 (Right Ventricle) RV 44/6/14 Recorded Pressure: PCW, HR=83, Condition=Condition 1 14:31:53 (Pulmonary Capillary Wedge) PCW 21/21/19 Recorded Pressure: MPA, HR=81, Condition=Condition 1 14:32:14 (Main Pulmonary Artery) MPA 46/26/34 A PIGTAIL ANG. INFINITI CATHETER FR 5 was advanced over a wire. OMNIPAQUE, 350 MG, 150ML 150ML was used 14:32:22 for injections. 14:32:30 HR=83 bpm, PXIJ=103/67 mmhg, SpO2=97.0 %, Resp=12 B/min, Pain=0, Angela=10, Stock=2 Recorded Pressure: LV, Ao, HR=83, Condition=Condition 1 14:32:45 (Left Ventricle) LV 102/10/20, (Aorta) Ao 45/24/33 Recorded Pressure: LV, PCW, HR=82, Condition=Condition 1 14:33:27 (Left Ventricle) LV 100/11/21, (Pulmonary Capillary Wedge) PCW 26//23 14:33:53 Saturation: Site=PA (Pulmonary Artery) , O2=54.6 %, Hgb=10.5 gm/dl, Condition=Condition 1. Used in calculation. 14:34:03 [place] Jacobo Catheter Removed 14:34:23 Saturation: Site=Ao (Aorta) , O2=94.1 %, Hgb=10.5 gm/dl, Condition=Condition 1. Used in alberto culation. 14:35:01 The LV was injected at 20 cc/sec for a total of 40. OMNIPAQUE, 350 MG, 150ML 150ML used. Recorded Pressure: LV, Ao, HR=84, Condition=Condition 1 14:35:32 (Left Ventricle) LV 102/4/22, (Aorta) Ao 102/65/80 14:35:58 Catheter was removed A JL 4.0 INFINITI CATHETER FR 5 was advanced over a wire. OMNIPAQUE, 350 MG, 150ML 150ML was us ed for 14:36:00 injections. Recorded Pressure: Ao, HR=83, Condition=Condition 1 14:37:13 (Aorta) Ao 102/65/80 14:37:32 HR=83 bpm, OOQA=666/67 mmhg, SpO2=97.0 %, Resp=12 B/min, Pain=0, Angela=10, Stock=2 After removing the current catheter a JL 5.0 INFINITI CATHETER FR 5 was advanced over a WIRE, 3 MMJ .035 180CM 14:38:21 180CM. 14:39:03 The LCA was injected and visualized at various angles. OMNIPAQUE, 350 MG, 150ML 150ML used . After removing the current catheter a JR 4.0 INFINITI CATHETER FR 5 was advanced over a WIRE, 3 MMJ .035 180CM 14:42:05 180CM. 14:42:31 HR=84 bpm, KCCT=065/69 mmhg, SpO2=95.0 %, Resp=12 B/min, Pain=0, Angela=10, Stock=2 14:42:48 The RCA was injected and visualized at various angles. OMNIPAQUE, 350 MG, 150ML 150ML used . 14:43:38 The NEGRON was injected and visualized at various angles. OMNIPAQUE, 350 MG, 150ML 150ML used . 14:44:12 Catheter was removed 14:44:37 VASCADE, FR5 CLOSURE SYSTEM FR 5 placement in the Fem Art (right) 14:46:21 VASCADE, FR6 CLOSURE SYSTEM FR 6\7 placement in the Fem Vein (right) 14:47:15 Case End 14:47:21 Catheter(s) removed without difficulty 14:47:27 Sterile dressing applied to site 14:47:27 No case complications noted. 14:47:29 Cine recording checked. 14:47:30 HR=84 bpm, ZPDO=155/77 mmhg, SpO2=96.0 %, Resp=15 B/min, Pain=0, Angela=10, Stock=2 14:47:33 Bedside Report will be given. 14:47:34 Implantable Device card placed in patient's chart. 14:47:37 Contrast Scanned 14:47:40 A Left Heart Cath was performed. 14:51:35 DOCU called. Spoke to Harrison. 14:52:21 Vitals capture stopped. 14:56:22 Patient moved to [facility] End Study - Contrast Media Used In Study Contrast Total Opened (mL) Total Used (mL) Total Wasted (mL) Omnipaque 90 90 0 End Study - Maximum Contrast Load Max Contrast Load (mL) 372.7 End Study - Radiation Exposure Fluoro Time (minutes) 4.6 End Study - Sheaths Sheaths Pulled By Sheath Hold Time (min) Minor, Tapan End Study - Patient Disposition Complications Transferred To Interventional Outcome No Home Health Clinical Liaison Holding No attempt made
[2017-06-12] MEDS ORDERED: IOHEXOL 350 MG/ML 100 ML BTL (for Cath Lab) OTHER ONE (15:15)
--- NOTE | 2017-06-12 15:24 | MA ---
cc: CALEBVIJAYKAROL DATE: 06/12/2017 PROCEDURE PERFORMED 1. Fluoroscopy with interpretation. 2. Left heart catheterization. 3. Right heart catheterization. 4. Left ventriculography. 5. Coronary angiography. 6. Left upper extremity angiography. METHOD The risks, benefits and alternatives were discussed with the patient. The patient understood and consented to the procedure. The patient was brought into the catheterization lab and was placed on the catheterization table. The right groin was prepped and draped in sterile fashion. The right groin was anesthetized with 2% lidocaine. The right common femoral artery was cannulated and a 5 [place], 11 cm sheath was placed without difficulty. The right femoral vein was accessed and a 7 [place], 11 cm sheath was placed without difficulty. RIGHT HEART CATHETERIZATION A 7 [place] pulmonary artery catheter was advanced through a right femoral venous sheath to the level of the right atrium under fluoroscopic guidance. Hemodynamics were as follows: Right atrial pressure measured 14 mmHg. Right ventricular pressure measured 44/6 mmHg. Pulmonary arterial pressure measured 43/27 mmHg. Pulmonary capillary wedge pressure measured 25 mmHg. Cardiac output 4.6 liters per minute. Cardiac index 2.2 liters per minute per meter squared. Simultaneous left ventricular end-diastolic pressure and pulmonary capillary wedge pressure tracings were performed and analyzed. There is no evidence of mitral stenosis present. LEFT HEART CATHETERIZATION Intraventricular hemodynamics measured 102/4 mmHg. Left end-diastolic pressure 22 mmHg. No significant aortic stenosis by transaortic valvular pullback gradient. LEFT VENTRICULOGRAPHY Left ventriculography was performed in a right anterior oblique view using a 40 cc contrast injection with good opacification. The left ventricular ejection fraction was visually estimated at 20% with global hypokinesis. There is 3+ mitral regurgitation. CORONARY ANGIOGRAPHY 1. The left main coronary is angiographically normal. 2. The left anterior descending coronary has 95% stenosis, heavily calcified and eccentric. In the proximal segment there is a bifurcation of what looks like to be a high diagonal branch which has a 90% stenosis. The left anterior descending coronary gives rise to several other smaller diagonal branches with minor luminal irregularities. The remainder of the left anterior descending coronary has minor luminal irregularities. 3. The left circumflex gives rise to an obtuse marginal branch. The obtuse marginal branch has a 50% stenosis proximally. It is a large caliber size vessel. 4. The right coronary is a dominant vessel giving rise to a posterior descending coronary artery. The right coronary has a 70% bifurcation stenosis in the posterolateral and posterior descending branches. CONCLUSIONS 1. Severe three-vessel [place] coronary artery disease. 2. Severely reduced left ventricular systolic function. 3. 3+ mitral regurgitation. 4. Elevated left-sided filling pressures. 5. Mild pulmonary hypertension. 6. Reduced cardiac output and index. LEFT LOWER EXTREMITY ANGIOGRAPHY 1. The left subclavian is widely patent. 2. The left internal mammary is widely patent. PLAN Given the mitral regurgitation and the multivessel coronary artery disease will get a surgical consultation for consideration of mitral valve repair and bypass surgery. MD MELANIE Branch/BRET /2:52 PM /3:08 PM
[2017-06-12] MEDS: METHOCARBAMOL 500 MG TAB PO PRN (17:00)
--- NOTE | 2017-06-12 18:20 | PD.CAR.PN ---
CVT Progress Note Subjective/Hospital Course: sts data discussed with pt RISK SCORES About the STS Risk Calculator Procedure: MV Replacement + CAB Risk of Mortality: 5.263% Morbidity or Mortality: 29.899% Long Length of Stay: 14.657% Short Length of Stay: 11.866% Permanent Stroke: 1.003% Prolonged Ventilation: 26.807% DSW Infection: 0.743% Renal Failure: 7.268% Reoperation: 13.81% Objective: Vital Signs Date Time Temp Pulse Resp B/P (MAP) Pulse Ox O2 Delivery O2 Flow Rate FiO2 06/12/17 15:01 92 Room Air 06/12/17 12:12 98.0 77 20 120/60 (80) 96 06/12/17 08:08 97.8 90 18 118/68 (85) 98 06/12/17 08:05 96 Nasal Cannula 3.00 06/12/17 05:17 88 06/12/17 03:44 98.1 87 18 109/71 (84) 99 06/12/17 00:15 92 06/11/17 23:44 98.0 96 18 118/75 (89) 97 06/11/17 21:13 98 Nasal Cannula 2.00 06/11/17 20:27 97.9 98 19 99/57 (71) 99 06/11/17 20:05 99 Labs: Laboratory Tests Test 06/12/17 06:40 White Blood Count 7.4 TH/MM3 (4.0-11.0) Red Blood Count 3.67 MIL/MM3 (4.50-5.90) Hemoglobin 10.3 GM/DL (13.0-17.0) Hematocrit 32.3 % (39.0-51.0) Mean Corpuscular Volume 88.0 FL (80.0-100.0) Mean Corpuscular Hemoglobin 28.1 PG (27.0-34.0) Mean Corpuscular Hemoglobin Concent 31.9 % (32.0-36.0) Red Cell Distribution Width 17.7 % (11.6-17.2) Platelet Count 111 TH/MM3 (150-450) Mean Platelet Volume 8.4 FL (7.0-11.0) Neutrophils (%) (Auto) 61.1 % (16.0-70.0) Lymphocytes (%) (Auto) 27.2 % (9.0-44.0) Monocytes (%) (Auto) 7.8 % (0.0-8.0) Eosinophils (%) (Auto) 3.3 % (0.0-4.0) Basophils (%) (Auto) 0.6 % (0.0-2.0) Neutrophils # (Auto) 4.5 TH/MM3 (1.8-7.7) Lymphocytes # (Auto) 2.0 TH/MM3 (1.0-4.8) Monocytes # (Auto) 0.6 TH/MM3 (0-0.9) Eosinophils # (Auto) 0.2 TH/MM3 (0-0.4) Basophils # (Auto) 0.0 TH/MM3 (0-0.2) CBC Comment DIFF FINAL Differential Comment Blood Urea Nitrogen 24 MG/DL (7-18) Creatinine 0.95 MG/DL (0.60-1.30) Random Glucose 89 MG/DL (74-106) Total Protein 5.3 GM/DL (6.4-8.2) Albumin 2.8 GM/DL (3.4-5.0) Calcium Level 8.3 MG/DL (8.5-10.1) Alkaline Phosphatase 136 U/L (45-117) Aspartate Amino Transf (AST/SGOT) 20 U/L (15-37) Alanine Aminotransferase (ALT/SGPT) 95 U/L (12-78) Total Bilirubin 1.2 MG/DL (0.2-1.0) Direct Bilirubin 0.6 MG/DL (0.0-0.2) Sodium Level 136 MEQ/L (136-145) Potassium Level 3.5 MEQ/L (3.5-5.1) Chloride Level 101 MEQ/L (98-107) Carbon Dioxide Level 26.8 MEQ/L (21.0-32.0) Anion Gap 8 MEQ/L (5-15) Estimat Glomerular Filtration Rate 80 ML/MIN (>89) Indirect Bilirubin 0.6 MG/DL (0.0-0.8) Result Diagram: 06/12/1740 06/12/1740 (1) Cardiomyopathy (2) Mitral regurgitation (3) CHF (congestive heart failure) Problem Qualifiers (1) CHF (congestive heart failure): Qualified Codes: I50.9 - Heart failure, unspecified Luba Gillette Jun 12, 2017 18:20
[2017-06-12] MEDS ORDERED: ceFAZolin 2 GM PREMIX 50 ML IV SCH (18:30)
[2017-06-12] MEDS ORDERED: PAPAVERINE INJ 60 MG, NITROGLYCERIN INJ 100 MCG, DILTIAZEM INJ 100 MG in SODIUM CHLORID... IRRIGATION SCH (18:30)
[2017-06-12] MEDS ORDERED: METOPROLOL TARTRATE 25 MG TAB PO SCH (18:30)
[2017-06-12] MEDS ORDERED: INSULIN REGULAR (IV INFUSION) 100 UNITS in SODIUM CHLORIDE 0.9% INJ 99 ML IV PRN (18:30)
[2017-06-12] MEDS ORDERED: SODIUM CHLORIDE 0.9% FLUSH 10 ML FLUSH IV FLUSH PRN (18:30)
[2017-06-12] MEDS ORDERED: CHLORHEXIDINE GLUCONATE 4% SOLN 120 ML BTL TOPICAL SCH (18:30)
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
--- NOTE | 2017-06-12 20:12 | RADRPT ---
EXAM DATE/TIME: 06/12/2017 19:05 [facility] COMPARISON: No previous studies available for comparison. INDICATIONS : Pre cardiac operation. MEDICAL HISTORY : Seizures. Migaraine. COPD. SURGICAL HISTORY : Left hand surgery. Right knee surgery. ENCOUNTER: Initial ACUITY: 1 day PAIN SCORE: 0/10 LOCATION: Bilateral leg. GREATER SAPHENOUS VEIN THIGH: PROXIMAL: Right 5 mm Left 6 mm MID: Right 3 mm Left 4 mm DISTAL: Right 3 mm Left 4 mm CALF: PROXIMAL: Right 3 mm Left 3 mm MID: Right 4 mm Left 3 mm DISTAL: Right 3 mm Left 2 mm FINDINGS: The venous system of the lower extremities are patent by color Doppler imaging. Measurements of the leg veins (in mm) are listed above. CONCLUSION: Venous mapping as delineated above. Juan Miguel Ayala MD on June 12, 2017 at 20:10 Board Certified Radiologist. This report was verified electronically.
--- NOTE | 2017-06-12 20:14 | RADRPT ---
EXAM DATE/TIME: 06/12/2017 19:15 [facility] COMPARISON: No previous studies available for comparison. INDICATIONS : Pre cardiac operation. MEDICAL HISTORY : Seizures. Migaraine. COPD. SURGICAL HISTORY : Left hand surgery. Right knee surgery. ENCOUNTER: Initial ACUITY: 1 day PAIN SCORE: 0/10 LOCATION: Right neck PEAK SYSTOLIC VELOCITIES (cm/sec): ICA/CCA RATIO: Right: 1.6 Left: 1.1 ICA: Right: 98 Left: 71 CCA: Right: 63 Left: 63 ECA: Right: 62 Left: 42 VERTEBRAL: Right: 48 antegrade Left: 42 antegrade Elevated flow velocities and ICA/CCA ratios have been found to correlate with increased degrees of vessel stenosis, calculated as percentage of diameter relative to a normal segment of distal ICA/CCA FINDINGS: RIGHT CAROTID: Minimal plaque is seen at the carotid bulb region. No significant stenosis is visualized. The wavefo jean carlos are within normal limits. LEFT CAROTID: No significant stenosis is visualized. The waveforms are within normal limits. VERTEBRAL ARTERIES: Antegrade flow is seen in both vertebral arteries. MISCELLANEOUS: None. CONCLUSION: No significant stenosis is seen. Juan Miguel Ayala MD on June 12, 2017 at 20:11 Board Certified Radiologist. This report was verified electronically.
[2017-06-12] MEDS: RESP: ALBUTEROL 2.5 MG/IPRATROPIUM 0.5 MG NEB (SCH) NEB (20:29)
[2017-06-12] MEDS: GABAPENTIN 300 MG CAP PO SCH (21:16)
--- NOTE | 2017-06-12 21:18 | EKG ---
Date Performed: 06/12/2017 Time Performed: 16:54:36 PTAGE: 62 years EKG: Sinus rhythm . Incomplete LBBB Poor R wave progression - probable normal variant Lateral T wave changes are nonspe cific Abnormal ECG No significant change from prior electrocardiogram. PREVIOUS TRACING : 06/11/2017 16.31 DOCTOR: Nino Rosenthal Interpretating Date/Time 06/12/2017 21:18:10
[2017-06-12 21:47] LABS: BLOOD, URINE MOD (NEG); GLUCOSE,URINE NEG (NEG); KETONE, URINE NEG (NEG); NITRITE,URINE NEG (NEG); PH, URINE 7.5 (5.0-8.5); URINE COLOR LIGHT-YELLOW (YELLW/STRAW)
[2017-06-12 21:59] LABS: COMMENT (UR) CULT NOT INDICATED; CULTURE IF INDICATED CULT NOT INDICATED
[2017-06-13] VITALS (27 sets, daily range): BP systolic 106–121; BP diastolic 63–82; PULSE 92–104; RESP 16–20; TEMP 98.1–99.1; O2SAT 94–98
[2017-06-13 05:20] LABS: AUTOMATED NEUTROPHIL # 5.3 TH/MM3 (1.8-7.7); BASOPHIL % 0.6 % (0.0-2.0); EOSINOPHIL # 0.1 TH/MM3 (0-0.4); EOSINOPHIL % 1.5 % (0.0-4.0); HEMATOCRIT 35.4 % (39.0-51.0); HEMO FLAGS DIFF FINAL; LYMPH % 18.7 % (9.0-44.0); LYMPHOCYTE # 1.4 TH/MM3 (1.0-4.8); MEAN CELL VOLUME 87.8 FL (80.0-100.0); MEAN CORPUSCULAR HEMOGLOBIN 27.7 PG (27.0-34.0); MEAN CORPUSCULAR HGB CONC 31.6 % (32.0-36.0); MONO % 9.1 % (0.0-8.0); NEUT % 70.1 % (16.0-70.0); PLATELET COUNT 131 TH/MM3 (150-450); RED BLOOD COUNT 4.03 MIL/MM3 (4.50-5.90); RED CELL DISTRIBUTION WIDTH 17.4 % (11.6-17.2); WHITE BLOOD COUNT 7.6 TH/MM3 (4.0-11.0)
[2017-06-13 05:37] LABS: ANION GAP 6 MEQ/L (5-15); BICARBONATE 29.9 MEQ/L (21.0-32.0); BLOOD UREA NITROGEN 30 MG/DL (7-18); CHLORIDE 103 MEQ/L (98-107); GLOMERULAR FILTRATION RATE 70 ML/MIN (>89); POTASSIUM 3.5 MEQ/L (3.5-5.1); SODIUM (NA) 139 MEQ/L (136-145); TRANSFERRIN IRON PROFILE 261 MG/DL (200-360)
[2017-06-13 05:38] LABS: HDL CHOLESTEROL 30.8 MG/DL (40.0-60.0); LDL CHOLESTEROL 85 MG/DL (0-99)
[2017-06-13] MEDS: RESP: ALBUTEROL 2.5 MG/IPRATROPIUM 0.5 MG NEB (SCH) NEB ×3 (08:27→20:00)
--- NOTE | 2017-06-13 08:32 | PD.CARD.PN ---
Subjective Subjective Remarks The patient states his breathing is better and back to baseline. He has no chest pain, bleeding, palpitations or GI symptoms. Telemetry reveals sinus rhythm with short nonsustained ventricular tachycardia. Catheterization report reviewed. Objective Medications Current Medications Medications (Trade) Dose Ordered Sig/Rosie Route Start Time Stop Time Status Last Admin (Narcan Inj) 0.4 mg UNSCH PRN IV PUSH 06/11/17 05:15 (Lasix Inj) 40 mg BID@09,18 IV PUSH 06/11/17 09:00 06/12/17 18:00 (Atrovent Neb) 0.5 mg Q2HR NEB PRN NEB 06/11/17 05:15 (Neurontin) 600 mg HS PO 06/11/17 21:00 06/12/17 21:16 (Coreg) 3.125 mg BID PO 06/11/17 09:00 06/12/17 21:16 (Aspirin Chew) 81 mg DAILY CHEW 06/11/17 09:00 06/12/17 08:10 (Robaxin) 500 mg BID PRN PO 06/11/17 10:15 06/12/17 17:00 (Duoneb Neb) 1 ampule Q6HR WHILE AWAKE NEB NEB 06/12/17 14:00 06/12/17 20:29 (Atropine Inj) 0.5 mg UNSCH PRN IV PUSH 06/12/17 15:00 Sodium Chloride 250 ml @ 500 mls/hr ONCE PRN IV 06/12/17 15:00 06/13/17 14:59 (Reglan Inj) 10 mg Q4H PRN IV PUSH 06/12/17 15:00 (NS Flush) 2 ml BID IV FLUSH 06/12/17 21:00 06/12/17 21:16 (NS Flush) 2 ml UNSCH PRN IV FLUSH 06/12/17 18:30 Papaverine HCl 60 mg/Nitroglycerin 100 mcg/Diltiazem HCl 100 mg/Sodium Chloride 100 ml @ 0 mls/hr PRESSURE DISPATCHER IRRIGATION 06/12/17 18:30 06/19/17 18:29 Cefazolin Sodium 500 mg/Sodium Chloride 505 ml @ 0 mls/hr PRESSURE DISPATCHER IRRIGATION 06/12/17 18:30 06/19/17 18:29 Cefazolin Sodium/ Dextrose 50 ml @ 150 mls/hr PRESSURE DISPATCHER IV 06/12/17 18:30 06/19/17 18:29 (Lopressor) 12.5 mg PRESSURE DISPATCHER PO 06/12/17 18:30 06/19/17 18:29 (Hibiclens 4% Top Soln) 1 applic PRESSURE DISPATCHER TOPICAL 06/12/17 18:30 06/19/17 18:29 Insulin Human Regular 100 units/ Sodium Chloride 100 ml @ 3 mls/hr TITRATE PRN IV 06/12/17 18:30 06/19/17 18:29 Vital Signs / I&O Vital Signs Date Time Temp Pulse Resp B/P (MAP) Pulse Ox O2 Delivery O2 Flow Rate FiO2 06/13/17 08:17 99 06/13/17 07:30 98.1 98 18 121/82 (95) 95 06/13/17 07:30 99 06/13/17 06:00 96 06/13/17 05:00 96 06/13/17 04:00 96 06/13/17 03:52 95 16 112/76 (88) 94 06/13/17 03:00 101 06/13/17 02:00 92 06/13/17 01:00 98 06/13/17 00:00 98 06/12/17 23:30 99 18 120/73 (89) 94 06/12/17 23:00 98 06/12/17 22:00 98 06/12/17 21:00 98 06/12/17 20:19 94 06/12/17 20:15 97.8 90 18 118/64 (82) 97 06/12/17 15:01 92 Room Air 06/12/17 12:12 98.0 77 20 120/60 (80) 96 I/O 06/12/17 06/12/17 06/12/17 06/13/17 06/13/17 06/13/17 07:00 15:00 23:00 07:00 15:00 23:00 Intake Total 400 ml Output Total 400 ml Balance -400 ml 400 ml Intake Oral 400 ml Output Urine Total 400 ml # Voids 1 # Bowel Movements 0 Physical Exam GENERAL: Well-nourished, well-developed patient in no apparent distress. SKIN: Warm and dry. NECK: JVD normal -6 cm H20. CARDIOVASCULAR: Regular rate and rhythm without gallops, or rubs. S3 present. RESPIRATORY: Normal breath sounds - equal bilaterally. No accessory muscle use. No wheezes, rales or rubs. PERIPHERY: No cyanosis, or edema. Right groin without hematoma or bruit. Laboratory Laboratory Tests Test 06/12/17 19:55 06/12/17 20:05 06/13/17 04:04 Nasal Screen MRSA (PCR) MRSA NOT DETECTED Urine Color LIGHT-YELLOW Urine Turbidity CLEAR Urine pH 7.5 Urine Specific [place] 1.018 Urine Protein NEG mg/dL Urine Glucose (UA) NEG mg/dL Urine Ketones NEG mg/dL Urine Occult Blood MOD Urine Nitrite NEG Urine Bilirubin NEG Urine Urobilinogen LESS THAN 2.0 MG/DL Urine Leukocyte Esterase NEG Urine WBC LESS THAN 1 /hpf Microscopic Urinalysis Comment CULT NOT INDICATED White Blood Count 7.6 TH/MM3 Red Blood Count 4.03 MIL/MM3 Hemoglobin 11.2 GM/DL Hematocrit 35.4 % Mean Corpuscular Volume 87.8 FL Mean Corpuscular Hemoglobin 27.7 PG Mean Corpuscular Hemoglobin Concent 31.6 % Red Cell Distribution Width 17.4 % Platelet Count 131 TH/MM3 Mean Platelet Volume 9.1 FL Neutrophils (%) (Auto) 70.1 % Lymphocytes (%) (Auto) 18.7 % Monocytes (%) (Auto) 9.1 % Eosinophils (%) (Auto) 1.5 % Basophils (%) (Auto) 0.6 % Neutrophils # (Auto) 5.3 TH/MM3 Lymphocytes # (Auto) 1.4 TH/MM3 Monocytes # (Auto) 0.7 TH/MM3 Eosinophils # (Auto) 0.1 TH/MM3 Basophils # (Auto) 0.0 TH/MM3 CBC Comment DIFF FINAL Differential Comment Blood Urea Nitrogen 30 MG/DL Creatinine 1.07 MG/DL Random Glucose 101 MG/DL Calcium Level 8.1 MG/DL Sodium Level 139 MEQ/L Potassium Level 3.5 MEQ/L Chloride Level 103 MEQ/L Carbon Dioxide Level 29.9 MEQ/L Anion Gap 6 MEQ/L Estimat Glomerular Filtration Rate 70 ML/MIN Iron Level 35 MCG/DL Total Iron Binding Capacity 365 MCG/DL Percent Iron Saturation 9.6 % Ferritin 111 NG/ML Triglycerides Level 51 MG/DL Cholesterol Level 126 MG/DL LDL Cholesterol 85 MG/DL HDL Cholesterol 30.8 MG/DL Cholesterol/HDL Ratio 4.09 RATIO Imaging Last 48 hours Impressions Lung Scan-VQ Nuclear Medicine 06/12/17 Signed Impressions: Service Date/Time: Monday, June 12, 2017 12:23 - CONCLUSION: Low probably for pulmonary embolism. Dyspnea is related to ventilation and not perfusion. Allan Morin MD FACR Lower Extremity Ultrasound 06/12/17 Signed Impressions: Service Date/Time: Monday, June 12, 2017 19:05 - CONCLUSION: Venous mapping as delineated above. Juan Miguel Ayala MD Lower Extremity Ultrasound 06/12/17 Signed Impressions: Service Date/Time: Monday, June 12, 2017 09:41 - CONCLUSION: 1. No evidence of deep venous thrombosis. Jonathan Saez MD Carotid Artery Ultrasound 06/12/17 Signed Impressions: Service Date/Time: Monday, June 12, 2017 19:15 - CONCLUSION: No significant stenosis is seen. Juan Miguel Ayala MD Assessment and Plan Problem List: (1) Cardiomyopathy ICD Codes: I42.9 - Cardiomyopathy, unspecified (2) Mitral regurgitation ICD Codes: I34.0 - Nonrheumatic mitral (valve) insufficiency (3) CHF (congestive heart failure) ICD Codes: I50.9 - Heart failure, unspecified Status: Acute Assessment and Plan Problems: Ischemic cardiomyopathy with severe mitral regurgitation Hyperlipidemia Tobacco abuse with COPD Nonsustained ventricular tachycardia Recommendations: I will start him on Lovenox anticoagulation. Baby aspirin I will initiate statin therapy. Low-dose beta blockers. We'll start low-dose JEREMI inhibitors and spironolactone. Tobacco abstinence I will leave follow-up of lab work and clinical status to the primary service tomorrow and we'll be available if needed. Dr. latif will return Thursday and hopefully the patient will have surgery on Thursday. All questions were answered. Problem Qualifiers (1) CHF (congestive heart failure): Qualified Codes: I50.9 - Heart failure, unspecified Nino Rosenthal MD Jun 13, 2017 08:32
[2017-06-13] MEDS: FUROSEMIDE 40 MG/4 ML VIAL IV PUSH SCH (09:00)
[2017-06-13] MEDS: SODIUM CHLORIDE 0.9% FLUSH 10 ML FLUSH IV FLUSH SCH ×2 (09:00→20:57)
[2017-06-13] MEDS: ASPIRIN 81 MG CHEW TAB CHEW SCH ×2 (09:00→09:34)
[2017-06-13] MEDS: ENOXAPARIN SODIUM 60 MG/0.6 ML SYRINGE SQ SCH ×2 (09:33→21:02)
[2017-06-13] MEDS: ATORVASTATIN 40 MG TAB PO SCH (09:34)
[2017-06-13] MEDS: CARVEDILOL 3.125 MG TAB PO SCH ×2 (09:35→20:57)
[2017-06-13] MEDS: SPIRONOLACTONE 25 MG TAB PO SCH (09:35)
[2017-06-13] MEDS: ENALAPRIL MALEATE 2.5 MG TAB PO SCH ×2 (10:16→21:02)
[2017-06-13 13:08] LABS: HEMOGLOBIN A1a 1.3 %; HEMOGLOBIN A1b 0.8 %; HEMOGLOBIN Ao 83.3 %; HEMOGLOBIN F 1.3 %; HEMOGLOBIN LA1C 2.4 %; HEMOGLOBIN P3 5.8 %
--- NOTE | 2017-06-13 13:49 | HHI.PR ---
Subjective Remarks Follow-up new-onset CHF, MR, CAD. The patient is doing okay today. He is having some chronic back pain. Apparently he takes gabapentin 600 mg twice daily rather than just at night. Shortness of breath continues to improve some. Planning for heart surgery sometime next week. All questions answered. Objective Vitals Vital Signs Date Time Temp Pulse Resp B/P (MAP) Pulse Ox O2 Delivery O2 Flow Rate FiO2 06/13/17 08:27 94 21 06/13/17 08:17 99 06/13/17 07:30 98.1 98 18 121/82 (95) 95 06/13/17 07:30 99 06/13/17 06:00 96 06/13/17 05:00 96 06/13/17 04:00 96 06/13/17 03:52 95 16 112/76 (88) 94 06/13/17 03:00 101 06/13/17 02:00 92 06/13/17 01:00 98 06/13/17 00:00 98 06/12/17 23:30 99 18 120/73 (89) 94 06/12/17 23:00 98 06/12/17 22:00 98 06/12/17 21:00 98 06/12/17 20:19 94 06/12/17 20:15 97.8 90 18 118/64 (82) 97 06/12/17 15:01 92 Room Air I/O 06/12/17 06/12/17 06/12/17 06/13/17 06/13/17 06/13/17 06:59 14:59 22:59 06:59 14:59 22:59 Intake Total 400 ml Output Total 400 ml Balance -400 ml 400 ml Intake Oral 400 ml Output Urine Total 400 ml # Voids 1 # Bowel Movements 0 Result Diagram: 06/13/17 0404 06/13/17 0404 Imaging Last Impressions Lung Scan-VQ Nuclear Medicine 06/12/17 0000 Signed Impressions: Service Date/Time: Monday, June 12, 2017 12:23 - CONCLUSION: Low probably for pulmonary embolism. Dyspnea is related to ventilation and not perfusion. Allan Morin MD FACR Lower Extremity Ultrasound 06/12/17 0000 Signed Impressions: Service Date/Time: Monday, June 12, 2017 19:05 - CONCLUSION: Venous mapping as delineated above. Juan Miguel Ayala MD Carotid Artery Ultrasound 06/12/17 0000 Signed Impressions: Service Date/Time: Monday, June 12, 2017 19:15 - CONCLUSION: No significant stenosis is seen. Juan Miguel Ayala MD Chest X-Ray 06/11/17 0310 Signed Impressions: Service Date/Time: May 03:19 - CONCLUSION: Probable CHF Juan Miguel Marroquin MD Objective Remarks GENERAL: Well-developed well-nourished. In no acute distress. SKIN: Warm and dry. No lesions noted. HEENT: Normocephalic. Pupils equal and round. Mucous membranes pink and moist. CARDIOVASCULAR: Regular rate and rhythm. 2/6 systolic murmur appreciated. RESPIRATORY: No accessory muscle use. Clear to auscultation. Rare basilar crackles. GASTROINTESTINAL: Abdomen soft, non-tender, nondistended. Bowel sounds x4. MUSCULOSKELETAL: No obvious deformities. No clubbing or cyanosis. Trace bilateral lower extremity pitting edema. NEUROLOGICAL: Awake and alert. No focal neurological deficits. Moves upper and lower extremities spontaneously. Normal speech. PSYCHIATRIC: Appropriate mood and affect; insight and judgment normal. A/P Assessment and Plan 62-year-old male with a past medical history of COPD and chronic back pain who presented for shortness of breath Acute congestive heart failure, new onset: On exam pulmonary crackles and lower extremity edema which are improving with diuresis. Reviewed: chest x-ray with cardiomegaly and edema. BNP 2863. Echocardiogram with reduced systolic function, EF 20-25% with severe MR. -Decrease IV Lasix to daily. Aldactone added. Monitor intake and output and electrolytes -Started on carvedilol and enalapril -Cardiology consulted, ischemic workup as below Coronary artery disease and severe mitral regurgitation: New onset systolic CHF with elevated troponin. Cardiac catheterization performed which showed severe three-vessel CAD, 3+ mitral regurgitation. -Cardiothoracic surgery consulted, likely CABG 3 and MVR next week. -Aspirin and statin started Normocytic anemia: Mild, stable. Iron studies show iron deficiency. -Give IV iron with stool softener Transaminitis: Mild elevation of bilirubin, ALT, alkaline phosphatase. Suspect hepatic congestion secondary to the above -Hepatitis panel pending -Follow up LFTs -Check liver ultrasound Elevated d-dimer: D-dimer elevated at 1.62, nonspecific but need to rule out PE with shortness of breath as above. -Check bilateral lower extremity Doppler showed no evidence of DVT -Checked VQ scan which was low probability for PE COPD: Chronic, does not seem to be in acute exacerbation. -Continue scheduled and as needed nebs -O2 as needed Chronic back pain: -Increase gabapentin to home dose. Continue Robaxin DVT prophylaxis: Chino Paredes Jun 13, 2017 13:49
[2017-06-13] MEDS ORDERED: IRON SUCROSE INJ 100 MG in SODIUM CHLORIDE 0.9% INJ 100 ML IV ONE (15:00)
[2017-06-13] MEDS ORDERED: GABAPENTIN 300 MG CAP PO ONE (16:00)
[2017-06-13] MEDS: GABAPENTIN 300 MG CAP PO SCH (20:57)
[2017-06-13] MEDS: DOCUSATE SODIUM 50 MG/SENNA 8.6 MG TAB PO SCH (20:57)
[2017-06-14] VITALS (27 sets, daily range): BP systolic 93–110; BP diastolic 50–72; PULSE 70–103; RESP 19–24; TEMP 97.3–98.6; O2SAT 92–97
[2017-06-14] MEDS ORDERED: ACETAMINOPHEN 325 MG TAB PO ONE (04:15)
[2017-06-14 05:21] LABS: AUTOMATED NEUTROPHIL # 4.7 TH/MM3 (1.8-7.7); BASOPHIL # 0.1 TH/MM3 (0-0.2); EOSINOPHIL % 0.5 % (0.0-4.0); HEMATOCRIT 32.6 % (39.0-51.0); HEMO FLAGS DIFF FINAL; LYMPH % 18.3 % (9.0-44.0); LYMPHOCYTE # 1.2 TH/MM3 (1.0-4.8); MEAN CELL VOLUME 87.4 FL (80.0-100.0); MEAN CORPUSCULAR HEMOGLOBIN 27.7 PG (27.0-34.0); MEAN CORPUSCULAR HGB CONC 31.7 % (32.0-36.0); MONO % 10.1 % (0.0-8.0); NEUT % 70.1 % (16.0-70.0); PLATELET COUNT 114 TH/MM3 (150-450); RED BLOOD COUNT 3.73 MIL/MM3 (4.50-5.90); RED CELL DISTRIBUTION WIDTH 17.8 % (11.6-17.2); WHITE BLOOD COUNT 6.6 TH/MM3 (4.0-11.0)
[2017-06-14 05:47] LABS: ANION GAP 11 MEQ/L (5-15); AST (GOT) 16 U/L (15-37); BICARBONATE 25.2 MEQ/L (21.0-32.0); BLOOD UREA NITROGEN 24 MG/DL (7-18); CHLORIDE 102 MEQ/L (98-107); GLOMERULAR FILTRATION RATE 76 ML/MIN (>89); POTASSIUM 3.8 MEQ/L (3.5-5.1); SODIUM (NA) 138 MEQ/L (136-145)
[2017-06-14 05:48] LABS: ALT (GPT) 67 U/L (12-78)
[2017-06-14 05:50] LABS: ALKALINE PHOSPHATASE 138 U/L (45-117)
--- NOTE | 2017-06-14 07:43 | HHI.PR ---
Subjective Remarks in no acute distress. denies chest pain or sob. has mild headache. otherwise no other complaints. Objective Vitals Vital Signs Date Time Temp Pulse Resp B/P (MAP) Pulse Ox O2 Delivery O2 Flow Rate FiO2 06/14/17 06:16 94 06/14/17 05:29 92 06/14/17 04:04 98.6 95 108/69 (82) 94 06/14/17 04:00 92 06/14/17 03:00 94 06/14/17 02:00 96 06/14/17 01:00 96 06/14/17 00:11 99 06/13/17 23:23 96 06/13/17 23:00 99.1 98 106/68 (81) 95 06/13/17 22:00 100 06/13/17 21:00 100 06/13/17 20:00 98.4 101 114/73 (87) 98 06/13/17 19:00 101 06/13/17 18:00 98 06/13/17 17:00 96 06/13/17 16:00 100 06/13/17 15:00 98.2 100 20 106/63 (77) 95 06/13/17 15:00 101 06/13/17 14:00 98 06/13/17 13:00 100 06/13/17 12:00 104 06/13/17 11:00 98.2 100 20 115/75 (88) 96 06/13/17 11:00 100 06/13/17 10:00 104 06/13/17 09:00 104 06/13/17 08:27 94 21 06/13/17 08:17 99 I/O 06/13/17 06/13/17 06/13/17 06/14/17 06/14/17 06/14/17 07:00 15:00 23:00 07:00 15:00 23:00 Intake Total 400 ml 1005 ml 240 ml Output Total 1450 ml 200 ml Balance 400 ml -445 ml 40 ml Intake Oral 400 ml 900 ml 240 ml IV Total 105 ml Output Urine Total 1450 ml 200 ml # Voids 1 # Bowel Movements 0 Result Diagram: 06/14/17 0503 06/14/17 0503 Imaging Last Impressions Lung Scan-VQ Nuclear Medicine 06/12/17 0000 Signed Impressions: Service Date/Time: Monday, June 12, 2017 12:23 - CONCLUSION: Low probably for pulmonary embolism. Dyspnea is related to ventilation and not perfusion. Allan Morin MD FACR Lower Extremity Ultrasound 06/12/17 0000 Signed Impressions: Service Date/Time: Monday, June 12, 2017 19:05 - CONCLUSION: Venous mapping as delineated above. Juan Miguel Ayala MD Carotid Artery Ultrasound 06/12/17 0000 Signed Impressions: Service Date/Time: Monday, June 12, 2017 19:15 - CONCLUSION: No significant stenosis is seen. Juan Miguel Ayala MD Chest X-Ray 06/11/17 031 Signed Impressions: Service Date/Time: May 03:19 - CONCLUSION: Probable CHF Juan Miguel Marroquin MD Objective Remarks GENERAL: This is a well-nourished, well-developed patient, in no apparent distress. CARDIOVASCULAR: Regular rate and regular rhythm without murmurs, gallops, or rubs. RESPIRATORY: Clear to auscultation. Breath sounds equal bilaterally. No wheezes , rales, or rhonchi. GASTROINTESTINAL: Abdomen soft, non-tender, nondistended. Normal, active bowel sounds MUSCULOSKELETAL: Extremities without clubbing, cyanosis, or edema. NEURO: Alert & Oriented x4 to person, place, time, situation. Moves all ext x4 Procedures cardiac cath Medications and IVs Current Medications Furosemide (Lasix Inj) 40 mg ONCE ONCE IV PUSH Last administered on 05:14; Start 06/11/17 at 05:00; Stop 06/11/17 at 05:01; Status DC Potassium Chloride (KCl) 20 meq ONCE ONCE PO Last administered on 06/11/17 05:14; Start 06/11/17 at 05:00; Stop 06/11/17 at 05:01; Status DC Sodium Chloride (NS Flush) 2 ml UNSCH PRN IV FLUSH FLUSH AFTER USING IV ACCESS ; Start 06/11/17 at 05:15; Stop 06/12/17 at 18:33; Status DC Sodium Chloride (NS Flush) 2 ml BID IV FLUSH Last administered on 06/12/17 08 :09; Start 06/11/17 at 09:00; Stop 06/12/17 at 18:33; Status DC Naloxone HCl (Narcan Inj) 0.4 mg UNSCH PRN IV PUSH SEE LABEL COMMENTS; Start 06/11/17 at 05:15 Furosemide (Lasix Inj) 40 mg BID@,18 IV PUSH Last administered on 06/13/17 09:00; Start 06/11/17 at 09:00; Stop 06/13/17 at 13:41; Status DC Ipratropium [place] (Atrovent Neb) 0.5 mg Q2HR NEB PRN NEB wheezing; Start 08/16 at 05:15 Ipratropium [place] (Atrovent Neb) 0.5 mg Q6HR NEB NEB Last administered on 08:03; Start 06/11/17 at 10:00; Stop 06/12/17 at 13:32; Status DC Pneumococcal Polyvalent Vaccine (Pneumovax-23 Inj) 25 mcg ONCE ONCE IM Last administered on 06/12/17 10:28; Start 06/12/17 at 10:00; Stop 06/12/17 at 10 :01; Status DC Influenza Virus Vaccine (Flu (Quadrivalent) Vaccine Inj) 0.5 ml ONCE ONCE IM Last administered on 06/12/17 10:24; Start 06/12/17 at 10:00; Stop 06/12/17 at 10:01; Status DC Gabapentin (Neurontin) 600 mg HS PO Last administered on 06/12/17 21:16; Start 06/11/17 at 21:00; Stop 06/13/17 at 13:41; Status DC Methocarbamol (Robaxin) 350 mg BID PO ; Start 06/11/17 at 09:00; Stop at 10:02; Status DC Carvedilol (Coreg) 3.125 mg BID PO Last administered on 06/13/17 20:57; Start 06/11/17 at 09:00 Aspirin (Aspirin Chew) 81 mg DAILY CHEW Last administered on 06/13/17 09:34; Start 06/11/17 at 09:00 Methocarbamol (Robaxin) 500 mg BID PRN PO MUSCLE SPASM Last administered on 17:00; Start 06/11/17 at 10:15 Albuterol/ Ipratropium (Duoneb Neb) 1 ampule Q6HR WHILE AWAKE NEB NEB Last administered on 06/13/17 13:10; Start 06/12/17 at 14:00 Heparin Sodium/ Sodium Chloride 1,000 ml @ As Directed STK-MED ONCE .ROUTE Last administered on 06/12/17 13:56; Start 06/12/17 at 13:56; Stop 06/12/17 at 13:57; Status DC Heparin Sodium/ Sodium Chloride 1,000 ml @ As Directed STK-MED ONCE .ROUTE Last administered on 06/12/17 14:04; Start 06/12/17 at 14:04; Stop 06/12/17 at 14:05; Status DC Midazolam HCl (Versed Inj) 2 mg STK-MED ONCE .ROUTE Last administered on 14:12; Start 06/12/17 at 14:04; Stop 06/12/17 at 14:05; Status DC Fentanyl Citrate (fentaNYL INJ) 100 mcg STK-MED ONCE .ROUTE Last administered on 06/12/17 14:13; Start 06/12/17 at 14:04; Stop 06/12/17 at 14:05; Status DC Heparin Sodium (Porcine) (Heparin Inj) 10,000 units STK-MED ONCE .ROUTE ; Start 06/12/17 at 14:04; Stop 06/12/17 at 14:05; Status DC Nitroglycerin 0 ml @ As Directed STK-MED ONCE .ROUTE ; Start 06/12/17 at 14:04 ; Stop 06/12/17 at 14:05; Status DC Atropine Sulfate (Atropine Inj) 0.5 mg UNSCH PRN IV PUSH VAGAL REPONSE; Start 06/12/17 at 15:00 Sodium Chloride 250 ml @ 500 mls/hr ONCE PRN IV VAGAL REPONSE; Start at 15:00; Stop 06/13/17 at 14:59; Status DC Metoclopramide HCl (Reglan Inj) 10 mg Q4H PRN IV PUSH NAUSEA; Start 06/12/17 at 15:00 Bacitracin (Bacitracin Oint Packet) 0.9 gm ONCE ONCE TOP Last administered on 06/12/17 15:00; Start 06/12/17 at 15:00; Stop 06/12/17 at 15:02; Status DC Iohexol (OMNIPAQUE 350 INJ ([employer] Professor)) 100 ml STK-MED ONCE OTHER ; Start at 15:15; Stop 06/12/17 at 15:16; Status DC Sodium Chloride (NS Flush) 2 ml BID IV FLUSH Last administered on 06/13/17 20 :57; Start 06/12/17 at 21:00 Sodium Chloride (NS Flush) 2 ml UNSCH PRN IV FLUSH FLUSH AFTER USING IV ACCESS ; Start 06/12/17 at 18:30 Papaverine HCl 60 mg/Nitroglycerin 100 mcg/Diltiazem HCl 100 mg/Sodium Chloride 100 ml @ 0 mls/hr [employer] ; Start 06/12/17 at 18:30; Stop at 18:29 Cefazolin Sodium 500 mg/Sodium Chloride 505 ml @ 0 mls/hr [employer] ; Start 06/12/17 at 18:30; Stop 06/19/17 at 18:29 Cefazolin Sodium/ Dextrose 50 ml @ 150 mls/hr [employer] IV ; Start 06/12/17 at 18:30; Stop 06/19/17 at 18:29 Metoprolol Tartrate (Lopressor) 12.5 mg [employer]GER PO ; Start 06/12/17 at 18:30; Stop 06/19/17 at 18:29 Chlorhexidine Gluconate (Hibiclens 4% Top Soln) 1 applic [employer] TOPICAL ; Start 06/12/17 at 18:30; Stop 06/19/17 at 18:29 Insulin Human Regular 100 units/ Sodium Chloride 100 ml @ 3 mls/hr TITRATE PRN IV for blood glucose control; Start 06/12/17 at 18:30; Stop 06/19/17 at 18:29 Enalapril Maleate (Vasotec) 2.5 mg BID PO Last administered on 06/13/17 21:02 ; Start 06/13/17 at 09:00 Spironolactone (Aldactone) 25 mg DAILY PO Last administered on 06/13/17 09:35 ; Start 06/13/17 at 09:00 Enoxaparin Sodium (Lovenox Inj) 60 mg Q12HR SQ Last administered on 06/13/17 21:02; Start 06/13/17 at 09:00 Atorvastatin Calcium (Lipitor) 40 mg DAILY PO Last administered on 06/13/17 09:34; Start 06/13/17 at 09:00 Aspirin (Aspirin Chew) 81 mg DAILY CHEW ; Start 06/13/17 at 09:00 Iron Sucrose 100 mg/Sodium Chloride 105 ml @ 105 mls/hr ONCE ONCE IV Last administered on 06/13/17 15:57; Start 06/13/17 at 15:00; Stop 06/13/17 at 15 :59; Status DC Senna/Docusate Sodium (Gabbie-Colace) 1 tab BID PO Last administered on 20:57; Start 06/13/17 at 21:00 Furosemide (Lasix Inj) 40 mg DAILY IV PUSH ; Start 06/14/17 at 09:00 Gabapentin (Neurontin) 600 mg BID PO Last administered on 06/13/17 20:57; Start 06/13/17 at 21:00 Gabapentin (Neurontin) 300 mg ONCE ONCE PO Last administered on 06/13/17 15: 58; Start 06/13/17 at 16:00; Stop 06/13/17 at 16:01; Status DC Acetaminophen (Tylenol) 650 mg ONCE ONCE PO Last administered on 06/14/17 04 :21; Start 06/14/17 at 04:15; Stop 06/14/17 at 04:16; Status DC A/P Assessment and Plan A/P Acute systolic congestive heart failure, new onset. Echocardiogram with reduced systolic function, EF 20-25% with severe MR. -continue lasix. Aldactone added. Monitor intake and output and electrolytes -Started on carvedilol and enalapril -Cardiology consulted, ischemic workup as below Coronary artery disease and severe mitral regurgitation: New onset systolic CHF with elevated troponin. Cardiac catheterization performed which showed severe three-vessel CAD, 3+ mitral regurgitation. -Cardiothoracic surgery consulted, likely CABG 3 and MVR on Thursday. -Aspirin and statin started -now on Lovenox. Normocytic anemia: Mild, stable. -received IV iron . Transaminitis: Mild elevation of bilirubin, ALT, alkaline phosphatase. Suspect hepatic congestion secondary to the above -Hepatitis panel pending -Follow up LFTs -liver ultrasound pending. Elevated d-dimer: D-dimer elevated at 1.62, nonspecific but need to rule out PE with shortness of breath as above. -Check bilateral lower extremity Doppler showed no evidence of DVT -Checked VQ scan which was low probability for PE COPD: Chronic, does not seem to be in acute exacerbation. -Continue scheduled and as needed nebs -O2 as needed Chronic back pain: -Increase gabapentin to home dose. Continue Myron Collazo MD Jun 14, 2017 07:43
[2017-06-14] MEDS: ASPIRIN 81 MG CHEW TAB CHEW SCH ×2 (09:00→09:32)
[2017-06-14] MEDS: RESP: ALBUTEROL 2.5 MG/IPRATROPIUM 0.5 MG NEB (SCH) NEB ×3 (09:23→19:18)
[2017-06-14] MEDS: ATORVASTATIN 40 MG TAB PO SCH (09:32)
[2017-06-14] MEDS: DOCUSATE SODIUM 50 MG/SENNA 8.6 MG TAB PO SCH ×2 (09:33→21:55)
[2017-06-14] MEDS: CARVEDILOL 3.125 MG TAB PO SCH ×2 (09:33→21:55)
[2017-06-14] MEDS: ENALAPRIL MALEATE 2.5 MG TAB PO SCH ×2 (09:33→21:54)
[2017-06-14] MEDS: GABAPENTIN 300 MG CAP PO SCH ×2 (09:34→21:54)
[2017-06-14] MEDS: SPIRONOLACTONE 25 MG TAB PO SCH (09:34)
[2017-06-14] MEDS: FUROSEMIDE 40 MG/4 ML VIAL IV PUSH SCH (09:34)
[2017-06-14] MEDS: SODIUM CHLORIDE 0.9% FLUSH 10 ML FLUSH IV FLUSH SCH ×2 (09:35→21:00)
[2017-06-14] MEDS: ENOXAPARIN SODIUM 60 MG/0.6 ML SYRINGE SQ SCH ×2 (09:35→22:00)
--- NOTE | 2017-06-14 12:31 | RADRPT ---
EXAM DATE/TIME: 06/14/2017 11:42 [facility] COMPARISON: No previous studies available for comparison. INDICATIONS : Increased lab values. MEDICAL HISTORY : Chronic obstructive pulmonary disease. Migaraine. Seizures. SURGICAL HISTORY : Left hand surgery. Right knee surgery. ENCOUNTER: Initial ACUITY: 1 day PAIN SCORE: 0/10 LOCATION: Bilateral upper quadrant MEASUREMENTS: LIVER: 15.1 cm length COMMON DUCT: 5 mm RIGHT KIDNEY: 10.3 x 5.6 x 4.1 cm SPLEEN: 13.4 cm length FINDINGS: LIVER: Normal echotexture without focal lesion or ductal dilatation. The portal system is patent. There is no evidence of ascites. There does appear to be a right-sided pleural effusion. COMMON DUCT: No intraluminal mass or stone visualized. GALLBLADDER: No definite gallstones. Gallbladder wall is thickened at 6 mm. No fluid around the gallbladder. PANCREAS: Pancreas is somewhat echogenic. The pancreatic duct measures 3 mm. RIGHT KIDNEY: No hydronephrosis, stone or mass. SPLEEN: No focal lesion. There is a left-sided pleural effusion. CONCLUSION: 1. No evidence of gallstones or biliary tract obstruction. Mild thickening of the gallbladder wall hair ggestive of chronic gallbladder disease. 2. Bilateral pleural effusions. 3. Mild splenomegaly. Julio Cesar Bautista MD on June 14, 2017 at 12:27 Board Certified Radiologist. This report was verified electronically.
[2017-06-14] MEDS: ACETAMINOPHEN 325 MG TAB PO PRN (21:54)
[2017-06-15] VITALS (25 sets, daily range): BP systolic 98–115; BP diastolic 52–76; PULSE 69–97; RESP 16–20; TEMP 97.9–98.2; O2SAT 94–100
[2017-06-15 05:49] LABS: HEMATOCRIT 35.1 % (39.0-51.0); INTERNATIONAL NORMALIZED RATIO 1.4 RATIO; MEAN CELL VOLUME 87.6 FL (80.0-100.0); MEAN CORPUSCULAR HEMOGLOBIN 27.8 PG (27.0-34.0); MEAN CORPUSCULAR HGB CONC 31.8 % (32.0-36.0); PLATELET COUNT 107 TH/MM3 (150-450); PROTHROMBIN TIME - PATIENT 15.2 SEC (9.8-11.6); RED BLOOD COUNT 4.01 MIL/MM3 (4.50-5.90); RED CELL DISTRIBUTION WIDTH 18.2 % (11.6-17.2); WHITE BLOOD COUNT 5.5 TH/MM3 (4.0-11.0)
[2017-06-15 05:52] LABS: HEMO FLAGS AUTO DIFF
[2017-06-15 06:53] LABS: BANDS 1 % (0-6); BASOPHILS 2 % (0-2); EOSINOPHILS 4 % (0-4); NEUTROPHIL # MANUAL DIFF 2.7 TH/MM3 (1.8-7.7); PLATELET ESTIMATE SMEAR LOW (NORMAL); PLATELET MORPHOLOGY NORMAL (NORMAL); POLYS (SEG NEUTROPHILS) 48 % (16-70); SCAN/DIFF FINAL DIFF MANUAL; WBC DIFF SAMPLE 100
[2017-06-15] MEDS: RESP: ALBUTEROL 2.5 MG/IPRATROPIUM 0.5 MG NEB (SCH) NEB ×3 (07:32→20:35)
--- NOTE | 2017-06-15 07:40 | HHI.PR ---
Subjective Remarks in no distress. denies chest pain or sob. d/w the RN. Objective Vitals Vital Signs Date Time Temp Pulse Resp B/P (MAP) Pulse Ox O2 Delivery O2 Flow Rate FiO2 06/15/17 07:32 97 21 06/15/17 06:00 80 06/15/17 05:00 86 06/15/17 04:00 88 06/15/17 03:30 97.9 94 20 115/73 (87) 94 06/15/17 03:00 96 06/15/17 02:00 92 06/15/17 01:00 92 06/15/17 00:00 94 06/14/17 23:00 98.5 94 22 110/72 (85) 97 06/14/17 23:00 94 06/14/17 23:00 20 06/14/17 22:00 100 06/14/17 21:00 98 06/14/17 20:00 99 24 104/66 (79) 93 06/14/17 20:00 102 06/14/17 19:18 95 21 06/14/17 19:00 102 06/14/17 18:00 103 06/14/17 17:00 92 06/14/17 16:00 89 06/14/17 15:00 88 06/14/17 15:00 97.3 88 19 93/50 (64) 96 06/14/17 14:00 89 06/14/17 13:00 82 06/14/17 12:00 75 06/14/17 11:00 80 06/14/17 11:00 76 20 101/59 (73) 93 06/14/17 10:01 77 06/14/17 09:26 92 06/14/17 09:00 84 06/14/17 08:00 90 I/O 06/14/17 06/14/17 06/14/17 06/15/17 06/15/17 06/15/17 07:00 15:00 23:00 07:00 15:00 23:00 Intake Total 240 ml 840 ml 480 ml Output Total 200 ml 800 ml Balance 40 ml 40 ml 480 ml Intake Oral 240 ml 840 ml 480 ml Output Urine Total 200 ml 800 ml # Voids 1 Result Diagram: 06/15/17 0432 06/14/17 0503 Imaging Last Impressions Liver Ultrasound 06/14/17 0000 Signed Impressions: Service Date/Time: Wednesday, June 14, 2017 11:42 - CONCLUSION: 1. No evidence of gallstones or biliary tract obstruction. Mild thickening of the gallbladder wall suggestive of chronic gallbladder disease. 2. Bilateral pleural effusions. 3. Mild splenomegaly. Julio Cesar Bautista MD Lung Scan-VQ Nuclear Medicine 06/12/17 0000 Signed Impressions: Service Date/Time: Monday, June 12, 2017 12:23 - CONCLUSION: Low probably for pulmonary embolism. Dyspnea is related to ventilation and not perfusion. Allan Morin MD FACR Lower Extremity Ultrasound 06/12/17 0000 Signed Impressions: Service Date/Time: Monday, June 12, 2017 19:05 - CONCLUSION: Venous mapping as delineated above. Juan Miguel Ayala MD Carotid Artery Ultrasound 06/12/17 0000 Signed Impressions: Service Date/Time: Monday, June 12, 2017 19:15 - CONCLUSION: No significant stenosis is seen. Juan Miguel Ayala MD Chest X-Ray 06/11/17309 Signed Impressions: Service Date/Time: May 03:19 - CONCLUSION: Probable CHF Juan Miguel Marroquin MD Objective Remarks GENERAL: This is a well-nourished, well-developed patient, in no apparent distress. CARDIOVASCULAR: Regular rate and regular rhythm without murmurs, gallops, or rubs. RESPIRATORY: Clear to auscultation. Breath sounds equal bilaterally. No wheezes , rales, or rhonchi. GASTROINTESTINAL: Abdomen soft, non-tender, nondistended. Normal, active bowel sounds MUSCULOSKELETAL: Extremities without clubbing, cyanosis, or edema. NEURO: Alert & Oriented x4 to person, place, time, situation. Moves all ext x4 Procedures cardiac cath Medications and IVs Current Medications Furosemide (Lasix Inj) 40 mg ONCE ONCE IV PUSH Last administered on 05:14; Start 06/11/17 at 05:00; Stop 06/11/17 at 05:01; Status DC Potassium Chloride (KCl) 20 meq ONCE ONCE PO Last administered on 06/11/17 05:14; Start 06/11/17 at 05:00; Stop 06/11/17 at 05:01; Status DC Sodium Chloride (NS Flush) 2 ml UNSCH PRN IV FLUSH FLUSH AFTER USING IV ACCESS ; Start 06/11/17 at 05:15; Stop 06/12/17 at 18:33; Status DC Sodium Chloride (NS Flush) 2 ml BID IV FLUSH Last administered on 06/12/17 08 :09; Start 06/11/17 at 09:00; Stop 06/12/17 at 18:33; Status DC Naloxone HCl (Narcan Inj) 0.4 mg UNSCH PRN IV PUSH SEE LABEL COMMENTS; Start 06/11/17 at 05:15 Furosemide (Lasix Inj) 40 mg BID@18 IV PUSH Last administered on 06/13/17 09:00; Start 06/11/17 at 09:00; Stop 06/13/17 at 13:41; Status DC Ipratropium [place] (Atrovent Neb) 0.5 mg Q2HR NEB PRN NEB wheezing Last administered on 06/14/17 15:18; Start 06/11/17 at 05:15 Ipratropium [place] (Atrovent Neb) 0.5 mg Q6HR NEB NEB Last administered on 08:03; Start 06/11/17 at 10:00; Stop 06/12/17 at 13:32; Status DC Pneumococcal Polyvalent Vaccine (Pneumovax-23 Inj) 25 mcg ONCE ONCE IM Last administered on 06/12/17 10:28; Start 06/12/17 at 10:00; Stop 06/12/17 at 10 :01; Status DC Influenza Virus Vaccine (Flu (Quadrivalent) Vaccine Inj) 0.5 ml ONCE ONCE IM Last administered on 06/12/17 10:24; Start 06/12/17 at 10:00; Stop 06/12/17 at 10:01; Status DC Gabapentin (Neurontin) 600 mg HS PO Last administered on 06/12/17 21:16; Start 06/11/17 at 21:00; Stop 06/13/17 at 13:41; Status DC Methocarbamol (Robaxin) 350 mg BID PO ; Start 06/11/17 at 09:00; Stop at 10:02; Status DC Carvedilol (Coreg) 3.125 mg BID PO Last administered on 06/14/17 21:55; Start 06/11/17 at 09:00 Aspirin (Aspirin Chew) 81 mg DAILY CHEW Last administered on 06/14/17 09:32; Start 06/11/17 at 09:00; Stop 06/14/17 at 21:32; Status DC Methocarbamol (Robaxin) 500 mg BID PRN PO MUSCLE SPASM Last administered on 17:00; Start 06/11/17 at 10:15 Albuterol/ Ipratropium (Duoneb Neb) 1 ampule Q6HR WHILE AWAKE NEB NEB Last administered on 06/14/17 19:18; Start 06/12/17 at 14:00 Heparin Sodium/ Sodium Chloride 1,000 ml @ As Directed STK-MED ONCE .ROUTE Last administered on 06/12/17 13:56; Start 06/12/17 at 13:56; Stop 06/12/17 at 13:57; Status DC Heparin Sodium/ Sodium Chloride 1,000 ml @ As Directed STK-MED ONCE .ROUTE Last administered on 06/12/17 14:04; Start 06/12/17 at 14:04; Stop 06/12/17 at 14:05; Status DC Midazolam HCl (Versed Inj) 2 mg STK-MED ONCE .ROUTE Last administered on 14:12; Start 06/12/17 at 14:04; Stop 06/12/17 at 14:05; Status DC Fentanyl Citrate (fentaNYL INJ) 100 mcg STK-MED ONCE .ROUTE Last administered on 06/12/17 14:13; Start 06/12/17 at 14:04; Stop 06/12/17 at 14:05; Status DC Heparin Sodium (Porcine) (Heparin Inj) 10,000 units STK-MED ONCE .ROUTE ; Start 06/12/17 at 14:04; Stop 06/12/17 at 14:05; Status DC Nitroglycerin 0 ml @ As Directed STK-MED ONCE .ROUTE ; Start 06/12/17 at 14:04 ; Stop 06/12/17 at 14:05; Status DC Atropine Sulfate (Atropine Inj) 0.5 mg UNSCH PRN IV PUSH VAGAL REPONSE; Start 06/12/17 at 15:00 Sodium Chloride 250 ml @ 500 mls/hr ONCE PRN IV VAGAL REPONSE; Start at 15:00; Stop 06/13/17 at 14:59; Status DC Metoclopramide HCl (Reglan Inj) 10 mg Q4H PRN IV PUSH NAUSEA; Start 06/12/17 at 15:00 Bacitracin (Bacitracin Oint Packet) 0.9 gm ONCE ONCE TOP Last administered on 06/12/17 15:00; Start 06/12/17 at 15:00; Stop 06/12/17 at 15:02; Status DC Iohexol (OMNIPAQUE 350 INJ (Super[employer] Terminal)) 100 ml STK-MED ONCE OTHER ; Start at 15:15; Stop 06/12/17 at 15:16; Status DC Sodium Chloride (NS Flush) 2 ml BID IV FLUSH Last administered on 06/14/17 21 :00; Start 06/12/17 at 21:00 Sodium Chloride (NS Flush) 2 ml UNSCH PRN IV FLUSH FLUSH AFTER USING IV ACCESS ; Start 06/12/17 at 18:30 Papaverine HCl 60 mg/Nitroglycerin 100 mcg/Diltiazem HCl 100 mg/Sodium Chloride 100 ml @ 0 mls/hr [employer]ATION ; Start 06/12/17 at 18:30; Stop at 18:29 Cefazolin Sodium 500 mg/Sodium Chloride 505 ml @ 0 mls/hr [employer] ; Start 06/12/17 at 18:30; Stop 06/19/17 at 18:29 Cefazolin Sodium/ Dextrose 50 ml @ 150 mls/hr [employer]PER[employer]OR PA[employer] IV ; Start 06/12/17 at 18:30; Stop 06/19/17 at 18:29 Metoprolol Tartrate (Lopressor) 12.5 mg [employer]PER[employer]OR PAINT PO ; Start 06/12/17 at 18:30; Stop 06/19/17 at 18:29 Chlorhexidine Gluconate (Hibiclens 4% Top Soln) 1 applic [employer]PER[employer] TOPICAL ; Start 06/12/17 at 18:30; Stop 06/19/17 at 18:29 Insulin Human Regular 100 units/ Sodium Chloride 100 ml @ 3 mls/hr TITRATE PRN IV for blood glucose control; Start 06/12/17 at 18:30; Stop 06/19/17 at 18:29 Enalapril Maleate (Vasotec) 2.5 mg BID PO Last administered on 06/14/17 21:54 ; Start 06/13/17 at 09:00 Spironolactone (Aldactone) 25 mg DAILY PO Last administered on 06/14/17 09:34 ; Start 06/13/17 at 09:00 Enoxaparin Sodium (Lovenox Inj) 60 mg Q12HR SQ Last administered on 06/14/17 22:00; Start 06/13/17 at 09:00 Atorvastatin Calcium (Lipitor) 40 mg DAILY PO Last administered on 06/14/17 09:32; Start 06/13/17 at 09:00 Aspirin (Aspirin Chew) 81 mg DAILY CHEW ; Start 06/13/17 at 09:00 Iron Sucrose 100 mg/Sodium Chloride 105 ml @ 105 mls/hr ONCE ONCE IV Last administered on 06/13/17 15:57; Start 06/13/17 at 15:00; Stop 06/13/17 at 15 :59; Status DC Senna/Docusate Sodium (Gabbie-Colace) 1 tab BID PO Last administered on 21:55; Start 06/13/17 at 21:00 Furosemide (Lasix Inj) 40 mg DAILY IV PUSH Last administered on 06/14/17 09: 34; Start 06/14/17 at 09:00 Gabapentin (Neurontin) 600 mg BID PO Last administered on 06/14/17 21:54; Start 06/13/17 at 21:00 Gabapentin (Neurontin) 300 mg ONCE ONCE PO Last administered on 06/13/17 15: 58; Start 06/13/17 at 16:00; Stop 06/13/17 at 16:01; Status DC Acetaminophen (Tylenol) 650 mg ONCE ONCE PO Last administered on 06/14/17 04 :21; Start 06/14/17 at 04:15; Stop 06/14/17 at 04:16; Status DC Acetaminophen (Tylenol) 650 mg Q4H PRN PO [place] Last administered on 06/14/17 21 :54; Start 06/14/17 at 21:30 A/P Assessment and Plan A/P Acute systolic congestive heart failure, new onset. Echocardiogram with reduced systolic function, EF 20-25% with severe MR. -continue lasix. Aldactone added. Monitor intake and output and electrolytes -Started on carvedilol and enalapril -Cardiology consulted, ischemic workup as below Coronary artery disease and severe mitral regurgitation: New onset systolic CHF with elevated troponin. Cardiac catheterization performed which showed severe three-vessel CAD, 3+ mitral regurgitation. -Cardiothoracic surgery consulted, likely CABG 3 and MVR on Thursday. -Aspirin and statin started -now on Lovenox. Normocytic anemia: Mild, stable. -received IV iron . Transaminitis: Mild elevation of bilirubin, ALT, alkaline phosphatase. Suspect hepatic congestion secondary to the above -Hepatitis panel pending -Follow up LFTs -liver ultrasound with chronic gallbladder disease and mild splenomegaly. Elevated d-dimer: D-dimer elevated at 1.62, nonspecific but need to rule out PE with shortness of breath as above. -Check bilateral lower extremity Doppler showed no evidence of DVT -VQ scan which with low probability for PE COPD: Chronic, does not seem to be in acute exacerbation. -Continue scheduled and as needed nebs -O2 as needed Chronic back pain: continue Gabapentin and Robaxin. DVT prophylaxis; on Lovenox. Myron Wiley MD Jun 15, 2017 07:40
[2017-06-15] MEDS: GABAPENTIN 300 MG CAP PO SCH ×2 (08:37→20:51)
[2017-06-15] MEDS: SPIRONOLACTONE 25 MG TAB PO SCH (08:38)
[2017-06-15] MEDS: ATORVASTATIN 40 MG TAB PO SCH (08:38)
[2017-06-15] MEDS: ENALAPRIL MALEATE 2.5 MG TAB PO SCH (08:38)
[2017-06-15] MEDS: DOCUSATE SODIUM 50 MG/SENNA 8.6 MG TAB PO SCH ×2 (08:38→20:49)
[2017-06-15] MEDS: CARVEDILOL 3.125 MG TAB PO SCH ×2 (08:38→20:49)
[2017-06-15] MEDS: ASPIRIN 81 MG CHEW TAB CHEW SCH (08:39)
[2017-06-15] MEDS: SODIUM CHLORIDE 0.9% FLUSH 10 ML FLUSH IV FLUSH SCH ×2 (08:39→20:51)
[2017-06-15] MEDS: FUROSEMIDE 40 MG/4 ML VIAL IV PUSH SCH (08:40)
[2017-06-15] MEDS: ENOXAPARIN SODIUM 60 MG/0.6 ML SYRINGE SQ SCH (09:00)
--- NOTE | 2017-06-15 09:37 | PD.CARD.PN ---
Subjective Subjective Remarks no events Objective Medications Current Medications Medications (Trade) Dose Ordered Sig/Rosie Route Start Time Stop Time Status Last Admin (Narcan Inj) 0.4 mg UNSCH PRN IV PUSH 06/11/17 05:15 (Atrovent Neb) 0.5 mg Q2HR NEB PRN NEB 06/11/17 05:15 06/14/17 15:18 (Coreg) 3.125 mg BID PO 06/11/17 09:00 06/15/17 08:38 (Robaxin) 500 mg BID PRN PO 06/11/17 10:15 06/12/17 17:00 (Duoneb Neb) 1 ampule Q6HR WHILE AWAKE NEB NEB 06/12/17 14:00 06/14/17 19:18 (Atropine Inj) 0.5 mg UNSCH PRN IV PUSH 06/12/17 15:00 (Reglan Inj) 10 mg Q4H PRN IV PUSH 06/12/17 15:00 (NS Flush) 2 ml BID IV FLUSH 06/12/17 21:00 06/15/17 08:39 (NS Flush) 2 ml UNSCH PRN IV FLUSH 06/12/17 18:30 Papaverine HCl 60 mg/Nitroglycerin 100 mcg/Diltiazem HCl 100 mg/Sodium Chloride 100 ml @ 0 mls/hr RATE INSERTER IRRIGATION 06/12/17 18:30 06/19/17 18:29 Cefazolin Sodium 500 mg/Sodium Chloride 505 ml @ 0 mls/hr RATE INSERTER IRRIGATION 06/12/17 18:30 06/19/17 18:29 Cefazolin Sodium/ Dextrose 50 ml @ 150 mls/hr RATE INSERTER IV 06/12/17 18:30 06/19/17 18:29 (Lopressor) 12.5 mg RATE INSERTER PO 06/12/17 18:30 06/19/17 18:29 (Hibiclens 4% Top Soln) 1 applic RATE INSERTER TOPICAL 06/12/17 18:30 06/19/17 18:29 Insulin Human Regular 100 units/ Sodium Chloride 100 ml @ 3 mls/hr TITRATE PRN IV 06/12/17 18:30 06/19/17 18:29 (Vasotec) 2.5 mg BID PO 06/13/17 09:00 06/15/17 08:38 (Aldactone) 25 mg DAILY PO 06/13/17 09:00 06/15/17 08:38 (Lovenox Inj) 60 mg Q12HR SQ 06/13/17 09:00 06/14/17 22:00 (Lipitor) 40 mg DAILY PO 06/13/17 09:00 06/15/17 08:38 (Aspirin Chew) 81 mg DAILY CHEW 06/13/17 09:00 06/15/17 08:39 (Gabbie-Colace) 1 tab BID PO 06/13/17 21:00 06/15/17 08:38 (Lasix Inj) 40 mg DAILY IV PUSH 06/14/17 09:00 06/15/17 08:40 (Neurontin) 600 mg BID PO 06/13/17 21:00 06/15/17 08:37 (Tylenol) 650 mg Q4H PRN PO 06/14/17 21:30 06/14/17 21:54 Vital Signs / I&O Vital Signs Date Time Temp Pulse Resp B/P (MAP) Pulse Ox O2 Delivery O2 Flow Rate FiO2 06/15/17 07:32 97 21 06/15/17 06:00 80 06/15/17 05:00 86 06/15/17 04:00 88 06/15/17 03:30 97.9 94 20 115/73 (87) 94 06/15/17 03:00 96 06/15/17 02:00 92 06/15/17 01:00 92 06/15/17 00:00 94 06/14/17 23:00 98.5 94 22 110/72 (85) 97 06/14/17 23:00 94 06/14/17 23:00 20 06/14/17 22:00 100 06/14/17 21:00 98 06/14/17 20:00 99 24 104/66 (79) 93 06/14/17 20:00 102 06/14/17 19:18 95 21 06/14/17 19:00 102 06/14/17 18:00 103 06/14/17 17:00 92 06/14/17 16:00 89 06/14/17 15:00 88 06/14/17 15:00 97.3 88 19 93/50 (64) 96 06/14/17 14:00 89 06/14/17 13:00 82 06/14/17 12:00 75 06/14/17 11:00 80 06/14/17 11:00 76 20 101/59 (73) 93 06/14/17 10:01 77 I/O 06/14/17 06/14/17 06/14/17 06/15/17 06/15/17 06/15/17 07:00 15:00 23:00 07:00 15:00 23:00 Intake Total 240 ml 840 ml 480 ml Output Total 200 ml 800 ml Balance 40 ml 40 ml 480 ml Intake Oral 240 ml 840 ml 480 ml Output Urine Total 200 ml 800 ml # Voids 1 Physical Exam GENERAL: SKIN: Warm and dry. HEAD: Normocephalic. EYES: No scleral icterus. No injection or drainage. NECK: Supple, trachea midline. No JVD or lymphadenopathy. CARDIOVASCULAR: Regular rate and rhythm without murmurs, gallops, or rubs. RESPIRATORY: Breath sounds equal bilaterally. No accessory muscle use. GASTROINTESTINAL: Abdomen soft, non-tender, nondistended. MUSCULOSKELETAL: No cyanosis, or edema. BACK: Nontender without obvious deformity. No CVA tenderness. Laboratory Laboratory Tests Test 06/15/17 04:32 White Blood Count 5.5 TH/MM3 Red Blood Count 4.01 MIL/MM3 Hemoglobin 11.1 GM/DL Hematocrit 35.1 % Mean Corpuscular Volume 87.6 FL Mean Corpuscular Hemoglobin 27.8 PG Mean Corpuscular Hemoglobin Concent 31.8 % Red Cell Distribution Width 18.2 % Platelet Count 107 TH/MM3 Mean Platelet Volume 8.8 FL CBC Comment AUTO DIFF Differential Total Cells Counted 100 Neutrophils % (Manual) 48 % Band Neutrophils % 1 % Lymphocytes % 34 % Monocytes % 11 % Eosinophils % 4 % Basophils % 2 % Neutrophils # (Manual) 2.7 TH/MM3 Differential Comment FINAL DIFF MANUAL Platelet Estimate LOW Platelet Morphology Comment NORMAL Prothrombin Time 15.2 SEC Prothromb Time International Ratio 1.4 RATIO Imaging Last Impressions Liver Ultrasound 06/14/17 0000 Signed Impressions: Service Date/Time: Wednesday, June 14, 2017 11:42 - CONCLUSION: 1. No evidence of gallstones or biliary tract obstruction. Mild thickening of the gallbladder wall suggestive of chronic gallbladder disease. 2. Bilateral pleural effusions. 3. Mild splenomegaly. Julio Cesar Bautista MD Lung Scan-V Nuclear Medicine 06/12/17 0000 Signed Impressions: Service Date/Time: Monday, June 12, 2017 12:23 - CONCLUSION: Low probably for pulmonary embolism. Dyspnea is related to ventilation and not perfusion. Allan Morin MD FACR Lower Extremity Ultrasound 06/12/17 0000 Signed Impressions: Service Date/Time: Monday, June 12, 2017 19:05 - CONCLUSION: Venous mapping as delineated above. Juan Miguel Ayala MD Carotid Artery Ultrasound 06/12/17 0000 Signed Impressions: Service Date/Time: Monday, June 12, 2017 19:15 - CONCLUSION: No significant stenosis is seen. Juan Miguel Ayala MD Chest X-Ray 06/11/17 0310 Signed Impressions: Service Date/Time: May 03:19 - CONCLUSION: Probable CHF Juan Miguel Marroquin MD Assessment and Plan Problem List: (1) Cardiomyopathy ICD Codes: I42.9 - Cardiomyopathy, unspecified (2) Mitral regurgitation ICD Codes: I34.0 - Nonrheumatic mitral (valve) insufficiency (3) CHF (congestive heart failure) ICD Codes: I50.9 - Heart failure, unspecified Status: Acute Assessment and Plan CAD plan for CABG MR - SHAUNA today NPO Problem Qualifiers (1) CHF (congestive heart failure): Qualified Codes: I50.9 - Heart failure, unspecified Tapan Clinton MD Jun 15, 2017 09:37
[2017-06-15] MEDS ORDERED: ROCURONIUM INJ 50 MG/5 ML SYRINGE IV PUSH ONE (12:00)
[2017-06-15] MEDS ORDERED: ePHEDrine/NS 25 MG/5 ML SYR IV ONE (12:00)
[2017-06-15] MEDS ORDERED: PROPOFOL 200 MG/20 ML AMP IV ONE (12:00)
[2017-06-15] MEDS ORDERED: SODIUM CHLORIDE 0.9% 20 ML VIAL IV ONE (12:00)
[2017-06-15] MEDS ORDERED: LIDOCAINE HCL 1% PF 5 ML AMPULE OTHER ONE (12:00)
[2017-06-15] MEDS ORDERED: DEXAMETHASONE SOD PHOS 4 MG/ML VIAL IV ONE (12:00)
[2017-06-15] MEDS ORDERED: MIDAZOLAM HCL 2 MG/2 ML VIAL IV ONE (12:00)
[2017-06-15] MEDS ORDERED: PHENYLEPH/NS 1000 MCG/10 ML SYR IV ONE (12:00)
[2017-06-15] MEDS ORDERED: ONDANSETRON HCL 4 MG/2 ML VIAL IV PUSH ONE (12:00)
[2017-06-15] MEDS ORDERED: PROPOFOL 200 MG/20 ML AMP ONE (13:59)
[2017-06-15] MEDS ORDERED: MISCELLANEOUS NURSING INFORMATION XX PRN (14:30)
--- NOTE | 2017-06-15 16:12 | ECHRPT ---
Indication: CONCLUSIONS Mildly dilated left ventricle. Wall thickness is normal. The left ventricular systolic function is severely reduced with an estimated ejection fraction in th e range of 25-30%. There is global left ventricular dysfunction. Structurally normal mitral valve. Severe mitral valve regurgitation. No mitral valve stenosis. There is mild to moderate tricuspid valve regurgitation. The estimated pulmonary arterial pressure i s 38.5 mmHg. Normal estimated pulmonary pressures. Diffuse calcification of the aortic valve. Trace aortic valve regurgitation. No aortic valve stenosis. BP: 1 / HR: Rhythm: MEASUREMENTS (Male / Female) Normal Values Technical Quality: DOPPLER TR Peak Velocity 267.0 cm/s Pulmonary Artery Systolic 38.5 mmHg TR Peak Gradient 28.5 mmHg Right Ventricular Systoli 38.5 mmHg Right Atrial Pressure 10.0 mmHg Medications Complications There were no complications prior to, during or in recovery from the transesophag eal echocardiogram.. Proc. Components The patient was brought to the diagnostic imaging area in a fasting state after o btaining an informed consent. The patient was premedicated with IV Versed and IV Fentanyl. The licensed nursing assistant ior pharynx was sprayed with Cetacaine spray and the patient was administered viscous Xylocaine 2 %. The SHAUNA probe was passed into the posterior pharynx , mid-esophagus, distal esophagus, and gastric fundus. SHAUNA was performed at multiple levels. The patient tolerated the procedure well and there were no complications. The patient was transferred to the floor in satisfactory condition.. FINDINGS LEFT VENTRICLE Mildly dilated left ventricle. Wall thickness is normal. The left ventricular systolic function is severely reduced with an estimated ejection fraction in th e range of 25-30%. There is global left ventricular dysfunction. RIGHT VENTRICLE Normal right ventricular size and systolic function. LEFT ATRIUM The left atrial size is [id number] dilated. RIGHT ATRIUM The right atrial size is mildly dilated. ATRIAL APPENDAGES Normal left atrial appendage size with no evidence of thrombus formation. ATRIAL SEPTUM Normal atrial septal thickness without atrial level shunting by limited color doppler interrogation. AORTA The aortic root and proximal ascending aorta are normal in size on limited imaging. MITRAL VALVE Structurally normal mitral valve. Severe mitral valve regurgitation. No mitral valve stenosis. AORTIC VALVE Diffuse calcification of the aortic valve. Trace aortic valve regurgitation. No aortic valve stenosis. TRICUSPID VALVE There is mild to moderate tricuspid valve regurgitation. The estimated pulmonary arterial pressure i s 38.5 mmHg. Normal estimated pulmonary pressures. VESSELS The inferior vena cava is normal in size. PULMONARY VALVE No pulmonary valve regurgitation or stenosis. PERICADIUM No pericardial effusion. Tapan Clinton MD, FACC (Electronically Signed) Final Date:15 June 2017 16:11
[2017-06-15 16:54] LABS: HEMOGLOBIN A1a 1.3 %; HEMOGLOBIN A1b 0.8 %; HEMOGLOBIN Ao 83.5 %; HEMOGLOBIN F 1.3 %; HEMOGLOBIN LA1C 2.2 %; HEMOGLOBIN P3 5.9 %
--- NOTE | 2017-06-15 18:14 | PD.CAR.PN ---
CVT Progress Note Subjective/Hospital Course: Bruno completed today EF 25-30% severe systolic dysfunction ,severe MR for surgery in am Objective: GENERAL: SKIN: Warm and dry. HEAD: Normocephalic. EYES: No scleral icterus. No injection or drainage. NECK: Supple, trachea midline. No JVD or lymphadenopathy. CARDIOVASCULAR: Regular rate and rhythm without gallops, or rubs. + 23 murmur RESPIRATORY: Breath sounds equal bilaterally. No accessory muscle use. GASTROINTESTINAL: Abdomen soft, non-tender, nondistended. MUSCULOSKELETAL: No cyanosis, or edema. BACK: Nontender without obvious deformity. No CVA tenderness. Vital Signs Date Time Temp Pulse Resp B/P (MAP) Pulse Ox O2 Delivery O2 Flow Rate FiO2 06/15/17 17:00 74 06/15/17 16:00 72 06/15/17 15:30 69 06/15/17 15:30 98.1 70 20 103/59 (74) 100 06/15/17 12:00 82 06/15/17 11:00 98.0 78 20 113/69 (84) 96 06/15/17 11:00 76 06/15/17 10:00 76 06/15/17 09:00 78 06/15/17 08:00 86 06/15/17 07:32 97 21 06/15/17 07:00 80 06/15/17 07:00 98.1 97 19 112/76 (88) 97 06/15/17 06:00 80 06/15/17 05:00 86 06/15/17 04:00 88 06/15/17 03:30 97.9 94 20 115/73 (87) 94 06/15/17 03:00 96 06/15/17 02:00 92 06/15/17 01:00 92 06/15/17 00:00 94 06/14/17 23:00 98.5 94 22 110/72 (85) 97 06/14/17 23:00 94 06/14/17 23:00 20 06/14/17 22:00 100 06/14/17 21:00 98 06/14/17 20:00 99 24 104/66 (79) 93 06/14/17 20:00 102 06/14/17 19:18 95 21 06/14/17 19:00 102 Result Diagram: 06/15/17 0432 06/14/17 0503 (1) Cardiomyopathy Plan: EF 25-30% severe MR for surgery in am (2) Mitral regurgitation (3) CHF (congestive heart failure) Problem Qualifiers (1) CHF (congestive heart failure): Qualified Codes: I50.9 - Heart failure, unspecified Luba Gillette Jun 15, 2017 18:14
[2017-06-15] MEDS: ACETAMINOPHEN 325 MG TAB PO PRN (20:52)
[2017-06-16] VITALS (21 sets, daily range): BP systolic 91–141; BP diastolic 52–77; PULSE 77–93; RESP 12–19; TEMP 97.2–98.4; O2SAT 93–99
--- NOTE | 2017-06-16 07:24 | HHI.PR ---
Subjective Remarks in no acute distress. denies chest pain or sob. awaiting surgery. Objective Vitals Vital Signs Date Time Temp Pulse Resp B/P (MAP) Pulse Ox O2 Delivery O2 Flow Rate FiO2 06/16/17 07:04 87 06/16/17 06:01 85 06/16/17 05:03 86 06/16/17 04:06 93 06/16/17 03:22 89 06/16/17 03:00 98.3 86 16 91/52 (65) 96 06/16/17 02:32 83 06/16/17 01:12 84 06/16/17 00:06 89 06/15/17 23:32 89 06/15/17 23:32 98.2 85 16 98/52 (67) 96 06/15/17 22:18 18 06/15/17 22:00 87 06/15/17 21:18 95 06/15/17 20:37 98 21 06/15/17 20:17 89 06/15/17 19:15 82 06/15/17 19:15 98.2 76 16 107/64 (78) 98 06/15/17 18:00 84 06/15/17 17:00 74 06/15/17 16:00 72 06/15/17 15:30 69 06/15/17 15:30 98.1 70 20 103/59 (74) 100 06/15/17 12:00 82 06/15/17 11:00 98.0 78 20 113/69 (84) 96 06/15/17 11:00 76 06/15/17 10:00 76 06/15/17 09:00 78 06/15/17 08:00 86 06/15/17 07:32 97 21 I/O 06/15/17 06/15/17 06/15/17 06/16/17 06/16/17 06/16/17 06:59 14:59 22:59 06:59 14:59 22:59 Intake Total 480 ml 650 ml 600 ml Output Total 1850 ml 600 ml Balance 480 ml -1200 ml 0 ml Intake Oral 480 ml 400 ml 600 ml IV Total 250 ml Output Urine Total 1850 ml 600 ml # Voids 1 Result Diagram: 06/15/17 0432 06/14/17 0503 Imaging Last Impressions Liver Ultrasound 06/14/17 0000 Signed Impressions: Service Date/Time: Wednesday, June 14, 2017 11:42 - CONCLUSION: 1. No evidence of gallstones or biliary tract obstruction. Mild thickening of the gallbladder wall suggestive of chronic gallbladder disease. 2. Bilateral pleural effusions. 3. Mild splenomegaly. Julio Cesar Bautista MD Lung Scan-VQ Nuclear Medicine 06/12/17 0000 Signed Impressions: Service Date/Time: Monday, June 12, 2017 12:23 - CONCLUSION: Low probably for pulmonary embolism. Dyspnea is related to ventilation and not perfusion. Allan Morin MD FACR Lower Extremity Ultrasound 06/12/17 0000 Signed Impressions: Service Date/Time: Monday, June 12, 2017 19:05 - CONCLUSION: Venous mapping as delineated above. Juan Miguel Ayala MD Carotid Artery Ultrasound 06/12/17 Signed Impressions: Service Date/Time: Monday, June 12, 2017 19:15 - CONCLUSION: No significant stenosis is seen. Juan Miguel Ayala MD Chest X-Ray 06/11/17 0310 Signed Impressions: Service Date/Time: May 03:19 - CONCLUSION: Probable CHF Juan Miguel Marroquin MD Objective Remarks GENERAL: This is a well-nourished, well-developed patient, in no apparent distress. CARDIOVASCULAR: Regular rate and regular rhythm without murmurs, gallops, or rubs. RESPIRATORY: Clear to auscultation. Breath sounds equal bilaterally. No wheezes , rales, or rhonchi. GASTROINTESTINAL: Abdomen soft, non-tender, nondistended. Normal, active bowel sounds MUSCULOSKELETAL: Extremities without clubbing, cyanosis, or edema. NEURO: Alert & Oriented x4 to person, place, time, situation. Moves all ext x4 Procedures cardiac cath SHAUNA Medications and IVs Current Medications Furosemide (Lasix Inj) 40 mg ONCE ONCE IV PUSH Last administered on 05:14; Start 06/11/17 at 05:00; Stop 06/11/17 at 05:01; Status DC Potassium Chloride (KCl) 20 meq ONCE ONCE PO Last administered on 06/11/17 05:14; Start 06/11/17 at 05:00; Stop 06/11/17 at 05:01; Status DC Sodium Chloride (NS Flush) 2 ml UNSCH PRN IV FLUSH FLUSH AFTER USING IV ACCESS ; Start 06/11/17 at 05:15; Stop 06/12/17 at 18:33; Status DC Sodium Chloride (NS Flush) 2 ml BID IV FLUSH Last administered on 06/12/17 08 :09; Start 06/11/17 at 09:00; Stop 06/12/17 at 18:33; Status DC Naloxone HCl (Narcan Inj) 0.4 mg UNSCH PRN IV PUSH SEE LABEL COMMENTS; Start 06/11/17 at 05:15 Furosemide (Lasix Inj) 40 mg BID@,18 IV PUSH Last administered on 06/13/17 09:00; Start 06/11/17 at 09:00; Stop 06/13/17 at 13:41; Status DC Ipratropium Warren (Atrovent Neb) 0.5 mg Q2HR NEB PRN NEB wheezing Last administered on 06/14/17 15:18; Start 06/11/17 at 05:15 Ipratropium [place] (Atrovent Neb) 0.5 mg Q6HR NEB NEB Last administered on 08:03; Start 06/11/17 at 10:00; Stop 06/12/17 at 13:32; Status DC Pneumococcal Polyvalent Vaccine (Pneumovax-23 Inj) 25 mcg ONCE ONCE IM Last administered on 06/12/17 10:28; Start 06/12/17 at 10:00; Stop 06/12/17 at 10 :01; Status DC Influenza Virus Vaccine (Flu (Quadrivalent) Vaccine Inj) 0.5 ml ONCE ONCE IM Last administered on 06/12/17 10:24; Start 06/12/17 at 10:00; Stop 06/12/17 at 10:01; Status DC Gabapentin (Neurontin) 600 mg HS PO Last administered on 06/12/17 21:16; Start 06/11/17 at 21:00; Stop 06/13/17 at 13:41; Status DC Methocarbamol (Robaxin) 350 mg BID PO ; Start 06/11/17 at 09:00; Stop at 10:02; Status DC Carvedilol (Coreg) 3.125 mg BID PO Last administered on 06/15/17 20:49; Start 06/11/17 at 09:00 Aspirin (Aspirin Chew) 81 mg DAILY CHEW Last administered on 06/14/17 09:32; Start 06/11/17 at 09:00; Stop 06/14/17 at 21:32; Status DC Methocarbamol (Robaxin) 500 mg BID PRN PO MUSCLE SPASM Last administered on 17:00; Start 06/11/17 at 10:15 Albuterol/ Ipratropium (Duoneb Neb) 1 ampule Q6HR WHILE AWAKE NEB NEB Last administered on 06/15/17 20:35; Start 06/12/17 at 14:00 Heparin Sodium/ Sodium Chloride 1,000 ml @ As Directed STK-MED ONCE .ROUTE Last administered on 06/12/17 13:56; Start 06/12/17 at 13:56; Stop 06/12/17 at 13:57; Status DC Heparin Sodium/ Sodium Chloride 1,000 ml @ As Directed STK-MED ONCE .ROUTE Last administered on 06/12/17 14:04; Start 06/12/17 at 14:04; Stop 06/12/17 at 14:05; Status DC Midazolam HCl (Versed Inj) 2 mg STK-MED ONCE .ROUTE Last administered on 14:12; Start 06/12/17 at 14:04; Stop 06/12/17 at 14:05; Status DC Fentanyl Citrate (fentaNYL INJ) 100 mcg STK-MED ONCE .ROUTE Last administered on 06/12/17 14:13; Start 06/12/17 at 14:04; Stop 06/12/17 at 14:05; Status DC Heparin Sodium (Porcine) (Heparin Inj) 10,000 units STK-MED ONCE .ROUTE ; Start 06/12/17 at 14:04; Stop 06/12/17 at 14:05; Status DC Nitroglycerin 0 ml @ As Directed STK-MED ONCE .ROUTE ; Start 06/12/17 at 14:04 ; Stop 06/12/17 at 14:05; Status DC Atropine Sulfate (Atropine Inj) 0.5 mg UNSCH PRN IV PUSH VAGAL REPONSE; Start 06/12/17 at 15:00 Sodium Chloride 250 ml @ 500 mls/hr ONCE PRN IV VAGAL REPONSE; Start at 15:00; Stop 06/13/17 at 14:59; Status DC Metoclopramide HCl (Reglan Inj) 10 mg Q4H PRN IV PUSH NAUSEA; Start 06/12/17 at 15:00 Bacitracin (Bacitracin Oint Packet) 0.9 gm ONCE ONCE TOP Last administered on 06/12/17 15:00; Start 06/12/17 at 15:00; Stop 06/12/17 at 15:02; Status DC Iohexol (OMNIPAQUE 350 INJ (Bus Transportation Manager)) 100 ml STK-MED ONCE OTHER ; Start at 15:15; Stop 06/12/17 at 15:16; Status DC Sodium Chloride (NS Flush) 2 ml BID IV FLUSH Last administered on 06/15/17 20 :51; Start 06/12/17 at 21:00 Sodium Chloride (NS Flush) 2 ml UNSCH PRN IV FLUSH FLUSH AFTER USING IV ACCESS ; Start 06/12/17 at 18:30 Papaverine HCl 60 mg/Nitroglycerin 100 mcg/Diltiazem HCl 100 mg/Sodium Chloride 100 ml @ 0 mls/hr ELECTRICAL ASSEMBLY SUPERVISOR IRRIGATION ; Start 06/12/17 at 18:30; Stop at 18:29 Cefazolin Sodium 500 mg/Sodium Chloride 505 ml @ 0 mls/hr ELECTRICAL ASSEMBLY SUPERVISOR IRRIGATION ; Start 06/12/17 at 18:30; Stop 06/19/17 at 18:29 Cefazolin Sodium/ Dextrose 50 ml @ 150 mls/hr ELECTRICAL ASSEMBLY SUPERVISOR IV ; Start 06/12/17 at 18:30; Stop 06/19/17 at 18:29 Metoprolol Tartrate (Lopressor) 12.5 mg ELECTRICAL ASSEMBLY SUPERVISOR PO ; Start 06/12/17 at 18:30; Stop 06/19/17 at 18:29 Chlorhexidine Gluconate (Hibiclens 4% Top Soln) 1 applic ELECTRICAL ASSEMBLY SUPERVISOR TOPICAL ; Start 06/12/17 at 18:30; Stop 06/19/17 at 18:29 Insulin Human Regular 100 units/ Sodium Chloride 100 ml @ 3 mls/hr TITRATE PRN IV for blood glucose control; Start 06/12/17 at 18:30; Stop 06/19/17 at 18:29 Enalapril Maleate (Vasotec) 2.5 mg BID PO Last administered on 06/15/17 08:38 ; Start 06/13/17 at 09:00; Status Future Hold Spironolactone (Aldactone) 25 mg DAILY PO Last administered on 06/15/17 08:38 ; Start 06/13/17 at 09:00 Enoxaparin Sodium (Lovenox Inj) 60 mg Q12HR SQ Last administered on 06/14/17 22:00; Start 06/13/17 at 09:00; Status Future Hold Atorvastatin Calcium (Lipitor) 40 mg DAILY PO Last administered on 06/15/17 08:38; Start 06/13/17 at 09:00 Aspirin (Aspirin Chew) 81 mg DAILY CHEW Last administered on 06/15/17 08:39; Start 06/13/17 at 09:00 Iron Sucrose 100 mg/Sodium Chloride 105 ml @ 105 mls/hr ONCE ONCE IV Last administered on 06/13/17 15:57; Start 06/13/17 at 15:00; Stop 06/13/17 at 15 :59; Status DC Senna/Docusate Sodium (Gabbie-Colace) 1 tab BID PO Last administered on 20:49; Start 06/13/17 at 21:00 Furosemide (Lasix Inj) 40 mg DAILY IV PUSH Last administered on 06/15/17 08: 40; Start 06/14/17 at 09:00 Gabapentin (Neurontin) 600 mg BID PO Last administered on 06/15/17 20:51; Start 06/13/17 at 21:00 Gabapentin (Neurontin) 300 mg ONCE ONCE PO Last administered on 06/13/17 15: 58; Start 06/13/17 at 16:00; Stop 06/13/17 at 16:01; Status DC Acetaminophen (Tylenol) 650 mg ONCE ONCE PO Last administered on 06/14/17 04 :21; Start 06/14/17 at 04:15; Stop 06/14/17 at 04:16; Status DC Acetaminophen (Tylenol) 650 mg Q4H PRN PO [place] Last administered on 06/15/17 20 :52; Start 06/14/17 at 21:30 Propofol (Diprivan 200 Mg/20 ml Inj) 600 mg STK-MED ONCE .ROUTE ; Start at 13:59; Stop 06/15/17 at 14:00; Status DC Miscellaneous Information 1 UNSCH PRN XX SEE LABEL COMMENTS; Start 06/15/17 at 14:30; Stop 06/18/17 at 14:29 A/P Assessment and Plan A/P Acute systolic congestive heart failure, new onset. Echocardiogram with reduced systolic function, EF 20-25% with severe MR. SHAUNA with severe MR -continue lasix and aldactone. Monitor intake and output and electrolytes -Started on carvedilol and enalapril -Cardiology consulted, ischemic workup as below Coronary artery disease and severe mitral regurgitation: New onset systolic CHF with elevated troponin. Cardiac catheterization performed which showed severe three-vessel CAD, 3+ mitral regurgitation. -Cardiothoracic surgery consulted- plan for CABG today. -Aspirin and statin started Normocytic anemia: Mild, stable. -received IV iron . Transaminitis: Mild elevation of bilirubin, ALT, alkaline phosphatase. Suspect hepatic congestion secondary to the above -Hepatitis panel negative. -Follow up LFTs -liver ultrasound with chronic gallbladder disease and mild splenomegaly. Elevated d-dimer: D-dimer elevated at 1.62, nonspecific but need to rule out PE with shortness of breath as above. -bilateral lower extremity Doppler showed no evidence of DVT -VQ scan which with low probability for PE COPD: Chronic, does not seem to be in acute exacerbation. -Continue scheduled and as needed nebs -O2 as needed Chronic back pain: continue Gabapentin and Robaxin. DVT prophylaxis; on Lovenox ( on hold for planned surgery). Discharge Planning for CABG today-per CT surgery. Myron Wiley MD Jun 16, 2017 07:23
[2017-06-16] MEDS: RESP: ALBUTEROL 2.5 MG/IPRATROPIUM 0.5 MG NEB (SCH) NEB ×2 (08:04→21:58)
[2017-06-16] MEDS: DOCUSATE SODIUM 50 MG/SENNA 8.6 MG TAB PO SCH ×2 (08:57→21:00)
[2017-06-16] MEDS: SPIRONOLACTONE 25 MG TAB PO SCH (08:57)
[2017-06-16] MEDS: GABAPENTIN 300 MG CAP PO SCH ×2 (08:57→21:00)
[2017-06-16] MEDS: ATORVASTATIN 40 MG TAB PO SCH (08:57)
[2017-06-16] MEDS: CARVEDILOL 3.125 MG TAB PO SCH ×2 (08:57→21:00)
[2017-06-16] MEDS: ASPIRIN 81 MG CHEW TAB CHEW SCH (08:58)
[2017-06-16] MEDS: SODIUM CHLORIDE 0.9% FLUSH 10 ML FLUSH IV FLUSH SCH ×2 (08:59→21:00)
[2017-06-16] MEDS: FUROSEMIDE 40 MG/4 ML VIAL IV PUSH SCH (08:59)
[2017-06-16] MEDS ORDERED: HEPARIN SODIUM - SQ 10,000 UNITS/ML VIAL ONE (11:59)
[2017-06-16] MEDS ORDERED: methylPREDNISolone SOD SUCC 125 MG/2 ML VIAL ONE (11:59)
[2017-06-16] MEDS ORDERED: MIDAZOLAM HCL 5 MG/5 ML VIAL ONE (11:59)
[2017-06-16] MEDS ORDERED: ceFAZolin 2 GM PREMIX 50 ML ONE (11:59)
[2017-06-16] MEDS ORDERED: fentaNYL CITRATE 1000 MCG/20 ML VIAL ONE (11:59)
[2017-06-16] MEDS ORDERED: DEXMEDETOMIDINE HCL 200 MCG/2 ML VIAL ONE (11:59)
[2017-06-16] MEDS ORDERED: VANCOMYCIN HCL 1000 MG VIAL ONE (11:59)
[2017-06-16] MEDS ORDERED: ACETAMINOPHEN 1000 MG/100 ML 100 ML IV ONE (11:59)
[2017-06-16] MEDS ORDERED: ALPRAZolam 0.25 MG TAB PO ONE (12:15)
[2017-06-16] MEDS ORDERED: POTASSIUM CHLORIDE 40 MEQ/20 ML VIAL ONE (12:41)
[2017-06-16] MEDS ORDERED: CUSTODIOL HTK IRR SOLN 2,000 ML ONE (12:41)
[2017-06-16] MEDS ORDERED: ALBUMIN 25% INJ 50 ML IV ONE (12:42)
[2017-06-16] MEDS ORDERED: MANNITOL INJ 100 ML ONE (12:43)
[2017-06-16] MEDS ORDERED: CALCIUM CHLORIDE 10% SOLN 1 GRAM/10 ML SYR ONE (12:43)
[2017-06-16] MEDS ORDERED: SODIUM BICARBONATE 8.4% INJ 150 ML ONE (12:43)
[2017-06-16] MEDS ORDERED: HEPARIN SODIUM - IV 10,000 UNITS/10 ML VIAL ONE (12:44)
[2017-06-16] MEDS ORDERED: CUSTODIOL HTK IRR SOLN 1,000 ML ONE (13:54)
[2017-06-16] MEDS: CEFAZOLIN INJ 500 MG in SODIUM CHLORIDE 0.9% IRR BTL 500 ML IRRIGATION SCH ×2 (14:22→17:23)
[2017-06-16] MEDS ORDERED: ceFAZolin INJ 1,000 MG VIAL ONE (15:42)
[2017-06-16] MEDS ORDERED: LACTATED RINGER'S 1000 ML INJ 500 ML IV PRN (17:57)
[2017-06-16] MEDS ORDERED: ACETAMINOPHEN 650 MG SUPP RECTAL PRN (18:00)
[2017-06-16] MEDS ORDERED: POTASSIUM CHLORIDE 20 MEQ CONTROLLED RELEASE TAB PO PRN ×2 (18:00)
[2017-06-16] MEDS ORDERED: DEXMEDETOMIDINE INJ 200 MCG in SODIUM CHLORIDE 0.9% INJ 50 ML IV PRN (18:00)
[2017-06-16] MEDS ORDERED: RESP: RACEPINEPHRINE 2.25% 0.5 ML NEB NEB PRN (18:00)
[2017-06-16] MEDS ORDERED: INSULIN REGULAR (IV INFUSION) 100 UNITS in SODIUM CHLORIDE 0.9% INJ 99 ML IV PRN (18:00)
[2017-06-16] MEDS ORDERED: DEXTROSE 50% IN WATER 50 ML SYRINGE IV PUSH PRN (18:00)
[2017-06-16] MEDS ORDERED: RESP: ALBUTEROL 2.5 MG/IPRATROPIUM 0.5 MG NEB (PRN) NEB (18:00)
[2017-06-16] MEDS ORDERED: CALCIUM CHLORIDE 10% 1 GRAM/10 ML VIAL IV PUSH PRN (18:00)
[2017-06-16] MEDS ORDERED: ALBUMIN 5% INJ 250 ML IV PRN (18:00)
[2017-06-16] MEDS ORDERED: CALCIUM CHLORIDE INJ 1 GM in SODIUM CHLORIDE 0.9% INJ 100 ML IV PRN (18:00)
[2017-06-16] MEDS ORDERED: Post-op Orders (for Pharmacy) MISC OTHER ONE (18:00)
[2017-06-16] MEDS ORDERED: ONDANSETRON HCL 4 MG/2 ML VIAL IV PUSH PRN (18:00)
[2017-06-16] MEDS ORDERED: POTASSIUM CHLOR 20 MEQ PREMIX 100 ML IV PRN ×3 (18:00)
[2017-06-16] MEDS ORDERED: SODIUM BICARBONATE 8.4% SOLN 50 MEQ/50 ML VIAL IV PUSH PRN ×2 (18:00)
[2017-06-16] MEDS ORDERED: METOPROLOL TARTRATE 5 MG/5 ML VIAL IV PUSH PRN (18:00)
[2017-06-16] MEDS ORDERED: ACETAMINOPHEN 325 MG TAB PO PRN (18:00)
[2017-06-16] MEDS ORDERED: MAGNESIUM SULFATE INJ 2 GM in SODIUM CHLORIDE 0.9% INJ 100 ML IV PRN ×4 (18:00)
[2017-06-16] MEDS ORDERED: DOPamine INJ PREMIX 500 ML IV PRN (18:00)
[2017-06-16] MEDS ORDERED: hydrALAZINE HCL 20 MG/ML VIAL IV PUSH PRN (18:00)
--- NOTE | 2017-06-16 18:39 | PD.OP ---
cc: Nury Jarvis MD; Tapan Clinton MD Operative Report Date of Surgery: Jun 16, 2017 Preoperative Diagnosis: (1) CAD (coronary artery disease) (2) Combined systolic and diastolic congestive heart failure, NYHA class 4 (3) Mitral regurgitation (4) Cardiomyopathy Postoperative Diagnosis: same Procedure: CABG x 3 NEGRON to LAD - good SVG to D1 - good SVG to PDA - good Mitral valve repair with a 30 [place] SHAUNA Anesthesia: Dr. Rivera Surgeon: Nury Jarvis Polysom Tech(s): TIMOTHY Joseph Operation and Findings: The risks, benefits, complications, treatment options, and expected outcomes were discussed with the patient. The possibilities of reaction to medication, pulmonary aspiration, perforation of viscus, bleeding, recurrent infection, the need for additional procedures, failure to diagnose a condition, and creating a complication requiring transfusion or operation were discussed with the patient. The patient concurred with the proposed plan, giving informed consent. The site of surgery properly noted/marked. The patient was taken to Operating Room , identified as Ervin Tee and the procedure verified as Mitral Valve Repair or Replacement, CABG, EVH, SHAUNA. A Time Out was held and the above information confirmed. Standard monitoring lines and Rocha catheter were placed. General anesthesia was induced. The patient was prepped and draped in a sterile fashion. A median sternotomy was performed and electrocautery was used to obtain hemostasis. The left internal mammary artery was procured as a pedicle from the 7th rib to the 1st rib in the usual manner. Simultaneously left greater saphenous vein was procured from the left leg using a minimally invasive endoscopic technique. The vein was prepared for anastomosis and the leg wound was irrigated and closed in 2 layers. The pericardium was opened and a pericardial sling was created using interrupted 0 silk sutures. The patient was heparinized for cardiopulmonary bypass and the distal mammary pedicle was instrumented for anastomosis. The heart was instrumented for cardiopulmonary bypass in the usual manner. Antegrade Custodiol cardioplegia was employed. The patient was placed on cardiopulmonary bypass. An aortic cross-clamp was applied and the heart was arrested using cold blood cardioplegia. Antegrade cardioplegia was administered after he each anastomosis. The left atrial appendage was resected using a surgical stapler. After adequate arrest, the distal right coronary circulation was investigated and the PDA was opened with a [place] blade and found to be a 1.5 millimeter good target . Saphenous vein was approximated to the PDA artery using a running 7 0 Prolene suture. The 1st diagonal artery was then opened with a [place] blade and found to be a 1.5 millimeter good target. Saphenous vein was approximated to the D1 artery using a running 7 0 Prolene suture. The graft was measured for length and orientation and was suspended from the pericardium. The distal LAD was opened with a [place] blade and found to be a 1.5 millimeter good target. The left internal mammary artery was but was approximated to the LAD using a running 7 0 Prolene suture. The pedicle was attached to the epicardium using interrupted 5 0 silk suture. The intra-atrial groove was dissected out using electrocautery. The left atrium was entered under direct vision and the atriotomy was extended mildly inferiorly and posteriorly. The left atrium was relatively small with a lipomatous septum. The mitral valve was exposed using an automatic retractor. The valve was analyzed and no segment was prolapsing. The annulus was sized to a 30 [place] annuloplasty ring which was seated using several interrupted 2-0 [place] horizontal mattress sutures. After securing the sutures, the valve repair was tested and felt to be excellent. The left atrium was closed using a running 4-0 Prolene suture and a small catheter was left in the left atrium to assist in venting the heart. The patient was systemically rewarmed. The aorta was vented and the proximal anastomosis to the D1 graft was accomplished using a running 5 0 Prolene suture after creating an aortotomy was a 5 millimeter punch. The heart was vigorously deaired with a clamp on. The clamp was removed, deairing continued. Intraoperative SHAUNA was used to assess intracardiac air and the mitral valve repair. Once the air was evacuated, the vent in the left atrium was removed and the suture line was secured. The heart was loaded and allowed to eject and the mitral valve was analyzed by SHAUNA. The repair was excellent with trace regurgitation. Temporary atrial and ventricular pacing wire were positioned and brought out through the skin in the usual manner. The patient was paced at 80 bpm and weaned from cardiopulmonary bypass. Protamine was given. There was no adverse reaction. Decannulation was carried out without incident. Wound was checked for hemostasis which was obtained using electrocautery. A 36 [place] mediastinal and 32 [place] left pleural chest was were placed and secured to the skin with 0 silk suture. The sternum was closed with stainless steel wire. The fascia was closed with 1. PDS. The subcutaneous tissue was closed using a running 2-0 Vicryl suture. The skin was closed with 4-0 Monocryl. Sterile dressings were placed. At the end of the operation, all sponge, instruments, and needle counts were correct. The patient was transferred to the CVICU in stable condition. Findings: Initial EF was ~20%, which improved to ~25-30% after revascularization and MV repair. XC: 95 min CPB: 135 min Drains: mediastinal x 1 pleural x 1 Specimens: left atrial appendage Implants: 30 [place] annuloplasty ring Complications: none Disposition: to CVICU in stable condition Pacing Wires: 2 atrial and 2 ventricular Nury Jarvis MD Jun 16, 2017 18:39
[2017-06-16] MEDS ORDERED: PROPOFOL 1000 MG/100 ML INJ 100 ML IV PRN (20:00)
[2017-06-16] MEDS ORDERED: DEXMEDETOMIDINE INJ 1,000 MCG in SODIUM CHLOR 0.9% 250 ML INJ 250 ML IV PRN (20:15)
[2017-06-16] MEDS: ACETAMINOPHEN 1000 MG/100 ML 100 ML IV SCH (20:43)
--- NOTE | 2017-06-16 20:58 | RADRPT ---
EXAM DATE/TIME: 06/16/2017 19:56 [facility] COMPARISON: CHEST SINGLE AP, June 11, 2017, 3:19. INDICATIONS : Post CABG. MEDICAL HISTORY : None. SURGICAL HISTORY : None. ENCOUNTER: Initial ACUITY: 1 day PAIN SCORE: Non-responsive. LOCATION: Bilateral chest FINDINGS: Chest tube is present on the left side. NG tube is present with tip not visualized may be in distal e sophagus. Mediastinal drainage tube is in place. Left subclavian line is present with tip overlapping the expected region of the SVC. ET tube is present with tip overlapping approximately 4 to cm above the rosa isela. There is moderate pulmonary edema mainly in the right perihilar and lower lung. No defini te pneumothorax is seen for technique. CONCLUSION: Pulmonary edema mainly in the right lung, however underlying pneumonia is difficult to exclude. Rito Quiles MD on June 16, 2017 at 20:55 Board Certified Radiologist. This report was verified electronically.
--- NOTE | 2017-06-16 21:25 | PD.CONS ---
[facility] Service Critical Care Medicine Consult Requested By Primary Care Physician Merle Collins MD History of Present Illness 62-year-old male with a past medical history of COPD and chronic back pain who presented for shortness of breath. He has been having shortness of breath seemed he was diagnosed with COPD by his PCP, Dr. Collins. He does not take any medications at home for COPD. He does continue to smoke. He has a chronic dry cough, unchanged. He was taken to cardiac catheterization lab by Dr. Clinton with findings of Severe three-vessel [place] coronary artery disease, Severely reduced left ventricular systolic function with estimated EF 25%, 3+ mitral regurgitation, and Mild pulmonary hypertension. Today June 16 he was taken to operating room for three-vessel CABG and mitral valve repair. Review of Systems ROS Unobtainable patient is sedated and intubated Past Family Social History Allergies: Coded Allergies: No Known Allergies (Unverified , 06/11/17) Past Medical History COPD Chronic back pain Past Surgical History None Reported Medications Reported Meds & Active Scripts Active Reported Methocarbamol 500 Mg Tab 350 Mg PO BID Gabapentin 600 Mg Tab 600 Mg PO HS Active Ordered Medications Current Medications Medications (Trade) Dose Ordered Sig/Rosie Route PRN Reason Start Time Stop Time Status Last Admin Dose Admin Naloxone HCl (Narcan Inj) 0.4 mg UNSCH PRN IV PUSH SEE LABEL COMMENTS 06/11/17 05:15 Ipratropium [place] (Atrovent Neb) 0.5 mg Q2HR NEB PRN NEB wheezing 06/11/17 05:15 06/14/17 15:18 Carvedilol (Coreg) 3.125 mg BID PO 06/11/17 09:00 06/16/17 08:57 Methocarbamol (Robaxin) 500 mg BID PRN PO MUSCLE SPASM 06/11/17 10:15 06/12/17 17:00 Atropine Sulfate (Atropine Inj) 0.5 mg UNSCH PRN IV PUSH VAGAL REPONSE 06/12/17 15:00 Metoclopramide HCl (Reglan Inj) 10 mg Q4H PRN IV PUSH NAUSEA 06/12/17 15:00 Sodium Chloride (NS Flush) 2 ml BID IV FLUSH 06/12/17 21:00 06/16/17 08:59 Sodium Chloride (NS Flush) 2 ml UNSCH PRN IV FLUSH FLUSH AFTER USING IV ACCESS 06/12/17 18:30 Papaverine HCl 60 mg/Nitroglycerin 100 mcg/Diltiazem HCl 100 mg/Sodium Chloride 100 ml @ 0 mls/hr MANAGER [employer] IRRIGATION 06/12/17 18:30 06/19/17 18:29 06/16/17 14:23 Cefazolin Sodium 500 mg/Sodium Chloride 505 ml @ 0 mls/hr MANAGER [employer] IRRIGATION 06/12/17 18:30 06/19/17 18:29 06/16/17 17:23 Cefazolin Sodium/ Dextrose 50 ml @ 150 mls/hr MANAGER [employer] DES[employer] IV 06/12/17 18:30 06/19/17 18:29 Metoprolol Tartrate (Lopressor) 12.5 mg MANAGER [employer] DES[employer] PO 06/12/17 18:30 06/19/17 18:29 Chlorhexidine Gluconate (Hibiclens 4% Top Soln) 1 applic MANAGER [employer] DES[employer] TOPICAL 06/12/17 18:30 06/19/17 18:29 Insulin Human Regular 100 units/ Sodium Chloride 100 ml @ 3 mls/hr TITRATE PRN IV for blood glucose control 06/12/17 18:30 06/19/17 18:29 Enalapril Maleate (Vasotec) 2.5 mg BID PO 06/13/17 09:00 Future Hold 06/15/17 08:38 Enoxaparin Sodium (Lovenox Inj) 60 mg Q12HR SQ 06/13/17 09:00 Future Hold 06/14/17 22:00 Atorvastatin Calcium (Lipitor) 40 mg DAILY PO 06/13/17 09:00 06/16/17 08:57 Aspirin (Aspirin Chew) 81 mg DAILY CHEW 06/13/17 09:00 06/16/17 08:58 Senna/Docusate Sodium (Gabbie-Colace) 1 tab BID PO 06/13/17 21:00 06/16/17 08:57 Gabapentin (Neurontin) 600 mg BID PO 06/13/17 21:00 06/16/17 08:57 Acetaminophen (Tylenol) 650 mg Q4H PRN PO [place] 06/14/17 21:30 06/15/17 20:52 Miscellaneous Information 1 UNSCH PRN XX SEE LABEL COMMENTS 06/15/17 14:30 06/18/17 14:29 Dopamine HCl/ Dextrose 500 ml @ 8.325 mls/ hr TITRATE PRN IV Maintain MAP > 65 mmHg 06/16/17 18:00 Albumin Human 250 ml @ 250 mls/hr UNSCH PRN IV SEE LABEL COMMENTS 06/16/17 18:00 Lactated Ringer's 500 ml @ 500 mls/hr Q1H PRN IV SEE LABEL COMMENTS 06/16/17 17:57 Cefazolin Sodium 1000 mg/Sodium Chloride 100 ml @ 200 mls/hr Q8H IV 06/16/17 21:00 06/18/17 05:29 06/16/17 20:43 Aspirin (Aspirin Chew) 81 mg DAILY PO 06/17/17 09:00 Pantoprazole Sodium (Protonix) 40 mg DAILY@06 PO 06/17/17 06:00 Multivitamins 10 ml/Thiamine HCl 500 mg/Folic Acid 1 mg/Sodium Chloride 515.2 ml @ 21 mls/hr DAILY IV 06/17/17 09:00 Acetaminophen (Tylenol) 650 mg Q4H PRN PO TEMPERATURE > 101 F 06/16/17 18:00 Acetaminophen (Tylenol Supp) 650 mg Q4H PRN RECTAL TEMPERATURE > 101 F 06/16/17 18:00 Acetaminophen 100 ml @ 400 mls/hr Q6H IV 06/16/17 18:00 06/17/17 12:14 06/16/17 20:43 Oxycodone/ Acetaminophen (Percocet 5-325 Mg) 1 tab Q3H PRN PO PAIN SCALE 1 TO 5 06/16/17 18:00 Fentanyl Citrate (fentaNYL INJ) 25 mcg Q1H PRN IV PUSH BREAKTHROUGH PAIN 06/16/17 18:00 Ondansetron HCl (Zofran Inj) 4 mg Q6H PRN IV PUSH NAUSEA OR VOMITING 06/16/17 18:00 Hydralazine HCl (Apresoline Inj) 10 mg Q4H PRN IV PUSH SEE LABEL COMMENTS 06/16/17 18:00 Metoprolol Tartrate (Lopressor Inj) 2.5 mg Q1H PRN IV PUSH SEE LABEL COMMENTS 06/16/17 18:00 Potassium Chloride 100 ml @ 50 mls/hr UNSCH PRN IV SEE LABEL COMMENTS 06/16/17 18:00 Potassium Chloride 100 ml @ 50 mls/hr UNSCH PRN IV SEE LABEL COMMENTS 06/16/17 18:00 Potassium Chloride 100 ml @ 50 mls/hr UNSCH PRN IV SEE LABEL COMMENTS 06/16/17 18:00 Potassium Chloride (KCl) 20 meq UNSCH PRN PO SEE LABEL COMMENTS 06/16/17 18:00 Potassium Chloride (KCl) 40 meq UNSCH PRN PO SEE LABEL COMMENTS 06/16/17 18:00 Magnesium Sulfate 2 gm/Sodium Chloride 104 ml @ 100 mls/hr UNSCH PRN IV SEE LABEL COMMENTS 06/16/17 18:00 Magnesium Sulfate 2 gm/Sodium Chloride 104 ml @ 50 mls/hr UNSCH PRN IV SEE LABEL COMMENTS 06/16/17 18:00 Calcium Chloride (Calcium Chloride Inj) 0.5 gm UNSCH PRN IV PUSH SEE LABEL COMMENTS 06/16/17 18:00 Insulin Human Regular 100 units/ Sodium Chloride 100 ml @ 3 mls/hr TITRATE PRN IV for blood glucose control 06/16/17 18:00 Dextrose (D50w (Syr) Inj) 50 ml UNSCH PRN IV PUSH HYPOGLYCEMIA-SEE COMMENTS 06/16/17 18:00 Sodium Bicarbonate (Sodium Bicarbonate 8.4% Inj) 50 meq UNSCH PRN IV PUSH SEE LABEL COMMENTS 06/16/17 18:00 Sodium Bicarbonate (Sodium Bicarbonate 8.4% Inj) 100 meq UNSCH PRN IV PUSH SEE LABEL COMMENTS 06/16/17 18:00 Albuterol/ Ipratropium (Duoneb Neb) 1 ampule Q6HR NEB NEB 06/16/17 22:00 Albuterol/ Ipratropium (Duoneb Neb) 1 ampule Q2HR NEB PRN NEB WHEEZING 06/16/17 18:00 Racepinephrine (Racepinephrine 2.25% Neb) 0.5 ml UNSCH X1 PRN NEB STRIDOR 06/16/17 18:00 06/16/17 23:59 Propofol 100 ml @ 2.22 mls/hr TITRATE PRN IV SEDATION 06/16/17 20:00 Dexmedetomidine HCl 1000 mcg/ Sodium Chloride 260 ml @ 3.84 mls/hr TITRATE PRN IV SEDATION 06/16/17 20:15 06/16/17 20:28 Family History No family history of early coronary artery disease or malignancy Social History Continues to smoke, no history of alcohol or illicit drug abuse Physical Exam Vital Signs Vital Signs Date Time Temp Pulse Resp B/P (MAP) Pulse Ox O2 Delivery O2 Flow Rate FiO2 06/16/17 19:00 79 06/16/17 19:00 93 Mechanical Ventilator 50 06/16/17 11:00 98.1 81 18 105/64 (78) 95 06/16/17 11:00 77 06/16/17 10:00 82 06/16/17 09:00 88 06/16/17 08:06 97 06/16/17 08:00 88 06/16/17 07:04 87 06/16/17 07:00 97.7 77 19 115/73 (87) 96 06/16/17 06:01 85 06/16/17 05:03 86 06/16/17 04:06 93 06/16/17 03:22 89 06/16/17 03:00 98.3 86 16 91/52 (65) 96 06/16/17 02:32 83 06/16/17 01:12 84 06/16/17 00:06 89 06/15/17 23:32 89 06/15/17 23:32 98.2 85 16 98/52 (67) 96 06/15/17 22:18 18 06/15/17 22:00 87 06/15/17 21:18 95 Physical Exam GENERAL: Elderly-appearing gentleman on mechanical ventilation SKIN: Warm and dry. HEAD: Normocephalic. EYES: No scleral icterus. No injection or drainage. NECK: Supple, trachea midline. No JVD or lymphadenopathy. CARDIOVASCULAR: Regular rate and rhythm without murmurs, gallops, or rubs. RESPIRATORY: Breath sounds equal bilaterally. No accessory muscle use. GASTROINTESTINAL: Abdomen soft, non-tender, nondistended. MUSCULOSKELETAL: No cyanosis, or edema. BACK: Nontender without obvious deformity. NEURO EXAM: GCS: M5 Vt E2 Mental Status: The patient is sedated and intubated Cranial Nerves: Pupils are round, reactive to light. Laboratory Date/Time Source Procedure Growth Status 06/11/17 03:15 Blood Peripheral Aerobic Blood Culture - Final NO GROWTH IN 5 DAYS Complete 06/11/17 03:15 Blood Peripheral Anaerobic Blood Culture - Final NO GROWTH IN 5 DAYS Complete Result Diagram: 06/15/17 0432 06/14/17 0503 Imaging Last 24 hours Impressions Chest X-Ray 06/16/17 0000 Signed Impressions: Service Date/Time: Friday, June 16, 2017 19:56 - CONCLUSION: Pulmonary edema mainly in the right lung, however underlying pneumonia is difficult to exclude. Rito Quiles MD Assessment and Plan Assessment and Plan Respiratory failure - Postoperatively - Attempt to wean off mechanical ventilation - DuoNeb's when necessary and scheduled - CXR and ABG daily while intubated COPD - No exacerbation - No indication for steroids - DuoNeb scheduled and when necessary Coronary artery disease - Status post triple-vessel CABG - Further management per cardiology and cardiothoracic surgery Hypotension - Post general anesthesia - Epinephrine and dopamine drip, wean as tolerated - Monitor SVV and fluids replacement as indicated DVT GI prophylaxis - Teds SCDs - Subcutaneous heparin - Pepcid Critical Care: The total critical care time was 35 minutes. Time to perform other separately billable procedures was not included in the critical care time. Raghav Reyes MD Jun 16, 2017 21:25
[2017-06-16] MEDS ORDERED: EPINEPHrine 2 MG/D5W 250 ML IV PRN ×2 (21:45)
[2017-06-16] MEDS ORDERED: EPINEPHrine (1:1000) INJ 4 MG in DEXTROSE 5% IN WATER INJ 246 ML IV PRN ×2 (23:30)
[2017-06-17] VITALS (9 sets, daily range): BP systolic 91–144; BP diastolic 52–87; PULSE 71–95; RESP 14–20; TEMP 97.1–98.5; O2SAT 90–99
[2017-06-17] MEDS: ACETAMINOPHEN 1000 MG/100 ML 100 ML IV SCH ×3 (00:31→12:08)
[2017-06-17] MEDS: RESP: ALBUTEROL 2.5 MG/IPRATROPIUM 0.5 MG NEB (SCH) NEB ×4 (04:00→20:35)
[2017-06-17 05:06] LABS: HEMATOCRIT 32.4 % (39.0-51.0); MEAN CELL VOLUME 86.2 FL (80.0-100.0); MEAN CORPUSCULAR HEMOGLOBIN 27.9 PG (27.0-34.0); MEAN CORPUSCULAR HGB CONC 32.3 % (32.0-36.0); PLATELET COUNT 132 TH/MM3 (150-450); RED BLOOD COUNT 3.76 MIL/MM3 (4.50-5.90); RED CELL DISTRIBUTION WIDTH 17.1 % (11.6-17.2); REVIEW FLAG FINAL; WHITE BLOOD COUNT 17.6 TH/MM3 (4.0-11.0)
[2017-06-17 05:14] LABS: BICARBONATE 24.1 MEQ/L (21.0-32.0); MAGNESIUM 2.5 MG/DL (1.5-2.5); POTASSIUM 4.2 MEQ/L (3.5-5.1)
--- NOTE | 2017-06-17 05:25 | RADRPT ---
EXAM DATE/TIME: 06/17/2017 04:46 [facility] COMPARISON: CHEST SINGLE AP, June 16, 2017, 19:56. INDICATIONS : Short of breath. MEDICAL HISTORY : None. SURGICAL HISTORY : CABG. ENCOUNTER: Subsequent ACUITY: 2 days PAIN SCORE: 0/10 LOCATION: Bilateral chest FINDINGS: The cardiac silhouette is enlarged in transverse diameter. A left chest tube is in place. There is no evidence of pneumothorax. There is prominence of the central pulmonary vasculature with indistinct v ascular margins compatible with vascular congestion but no evidence of overt failure. The findings ar e improved when compared with the prior exam. CONCLUSION: 1. Cardiomegaly and findings of vascular congestion without overt failure. The findings are improved when compared with the prior exam. 2. There is no evidence of pneumothorax. Jonathan Saez MD on June 17, 2017 at 5:23 Board Certified Radiologist. This report was verified electronically.
[2017-06-17] MEDS: PANTOPRAZOLE SOD 40 MG DELAYED RELEASE TAB PO SCH (05:54)
[2017-06-17] MEDS: oxyCODONE/ACETAMINOPHEN 5 MG/325 MG TAB PO PRN ×6 (07:36→23:21)
--- NOTE | 2017-06-17 07:50 | HHI.CCPN ---
Subjective Remarks/Hospital Course History of Present Illness 62-year-old male with a past medical history of COPD and chronic back pain who presented for shortness of breath. He has been having shortness of breath seemed he was diagnosed with COPD by his PCP, Dr. Collins. He does not take any medications at home for COPD. He does continue to smoke. He has a chronic dry cough, unchanged. He was taken to cardiac catheterization lab by Dr. Clinton with findings of Severe three-vessel [place] coronary artery disease, Severely reduced left ventricular systolic function with estimated EF 25%, 3+ mitral regurgitation, and Mild pulmonary hypertension. Today June 16 he was taken to operating room for three-vessel CABG and mitral valve repair. Subjective: 06/17: Last night upon arrival to CVICU, the patient was successfully extubated at 11:50 PM the patient was weaned from Ventimask to currently 4 L/m nasal cannula and continues in sinus rhythm. Chest tube output upon presentation to CVICU was 450 cc, overnight over 12 hours an additional 950 cc via chest tube drainage was noted. In the last 2 hours chest tube drainage total approximately 60 cc, hemodynamically stable. Awake and alert oriented , with the VAS pain score of 6/10 advanced to by mouth narcotics and diet. Plan for removal of right femoral arterial line and out of bed to chair. Patient instructed in incentive spirometry use. Objective Vital Signs Date Time Temp Pulse Resp B/P (MAP) Pulse Ox O2 Delivery O2 Flow Rate FiO2 06/17/17 05:54 20 06/17/17 03:30 92 06/17/17 03:30 99 Venturi Mask 6.00 50 06/17/17 03:00 98.2 119/65 (83) 125/66 (85) Intake and Output 06/17/17 06/17/17 06/18/17 08:00 16:00 00:00 Intake Total 6342 ml Output Total 2645 ml Balance 3697 ml Result Diagram: 06/17/17 04206/17/17 0420 Imaging Last 24 hours Impressions Chest X-Ray 06/16/17 0000 Signed Impressions: Service Date/Time: Friday, June 16, 2017 19:56 - CONCLUSION: Pulmonary edema mainly in the right lung, however underlying pneumonia is difficult to exclude. Rito Quiles MD Objective Remarks Infusions: Epinephrine 5 mcgs/min Dopamine 5 mcgs/kg/min Insulin 3u/hr BP 109/56 Pulse 84 O2 Sat 97% on 4LPM CO trend 6-6.5 CI trend 3.0 GENERAL: Well-developed and well-nourished gentleman elderly-appearing gentleman in mild distress secondary to postoperative pain. SKIN: Warm and dry. HEAD: Normocephalic. EYES: No scleral icterus. No injection or drainage. NECK: Supple, trachea midline. No JVD or lymphadenopathy. CARDIOVASCULAR: Regular rate and rhythm without murmurs, gallops, or rubs. RESPIRATORY: Breath sounds equal bilaterally. No accessory muscle use. Chest tube drainage serosanguineous minimal GASTROINTESTINAL: Abdomen soft, non-tender, nondistended. MUSCULOSKELETAL: No cyanosis, or edema. [place] bandage left lower extremity slightly cold to touch capillary refill brisk less than 2 seconds. Dopplerable DP, PT biphasic pulses BACK: Nontender without obvious deformity. NEURO EXAM: GCS: M6 V5 E4. Follows commands 4 extremities Mental Status: The patient is appropriate Cranial Nerves: Pupils are round, reactive to light. Procedures cardiac cath SHAUNA 06/16 CABG w/ MVR Vascular Central Line Catheter: Yes Date of Insertion: Jun 16, 2017 Line: Central Venous Catheter Side: Left Location: Subclavian Reason for Continuation Vasoactive medication administration A/P Assessment and Plan Respiratory failure-resolved - Maintain O2 sat greater than 92%, early on O2 via nasal cannula 4 L/m continue to wean - Encourage use incentive spirometry every hour while awake - DuoNeb's when necessary and scheduled COPD - No exacerbation - No indication for steroids - DuoNeb scheduled and when necessary Coronary artery disease - Status post triple-vessel CABG and MVR POD #2 - Further management per cardiology and cardiothoracic surgery Hypotension - Post general anesthesia - Epinephrine and dopamine drip, wean as tolerated - Monitor SVV and fluids replacement as indicated DVT GI prophylaxis - Teds SCDs - SQ heparin per CTS recommendations - Pepcid Musculoskeletal PT evaluation and treat Dispo: Discussed with [employer] at bedside ([place]) Level 3 Physician Lucero Fontanez MD Jun 17, 2017 07:50
[2017-06-17] MEDS: GABAPENTIN 300 MG CAP PO SCH ×2 (08:30→21:58)
[2017-06-17] MEDS: DOCUSATE SODIUM 50 MG/SENNA 8.6 MG TAB PO SCH ×2 (08:30→21:58)
[2017-06-17] MEDS: ATORVASTATIN 40 MG TAB PO SCH (08:31)
[2017-06-17] MEDS: ASPIRIN 81 MG CHEW TAB CHEW SCH (08:31)
[2017-06-17] MEDS: SODIUM CHLORIDE 0.9% FLUSH 10 ML FLUSH IV FLUSH SCH ×2 (08:31→21:59)
[2017-06-17] MEDS: ASPIRIN 81 MG CHEW TAB PO SCH (08:32)
[2017-06-17] MEDS ORDERED: MULTIVITAMIN INJ 10 ML, THIAMINE INJ 500 MG, FOLIC ACID INJ 1 MG in SODIUM CHLORID 0.9%... IV SCH (09:00)
--- NOTE | 2017-06-17 13:49 | EKG ---
Date Performed: 06/17/2017 Time Performed: 05:08:22 PTAGE: 62 years EKG: Sinus rhythm Possible left anterior fascicular block Lateral T wave changes are nonspecific Borderline ECG PREVIOUS TRACING : 06/12/2017 16.54 DOCTOR: Tapan Clinton Interpretating Date/Time 06/17/2017 13:43:57
--- NOTE | 2017-06-17 15:02 | PD.CAR.PN ---
CVT Progress Note Subjective/Hospital Course: 62-year-old male with a past medical history of COPD and chronic back pain who presented for shortness of breath. He has been having shortness of breath seemed he was diagnosed with COPD by his PCP, Dr. Collins. He does not take any medications at home for COPD. He does continue to smoke. He has a chronic dry cough, unchanged. He was taken to cardiac catheterization lab by Dr. Clinton with findings of Severe three-vessel [place] coronary artery disease, Severely reduced left ventricular systolic function with estimated EF 25%, 3+ mitral regurgitation, and Mild pulmonary hypertension. Bruno completed today EF 25-30% severe systolic dysfunction ,severe MR Combined systolic and diastolic congestive heart failure, NYHA class 4 Mitral regurgitation Cardiomyopathy CAD (coronary artery disease) surgery : CABG x 3, NEGRON to LAD - good, SVG to D1 - good, SVG to PDA - good, Mitral valve repair with a 30 [address] [place], BRUNO extubated after surgery 41oocc crystalloid, 750cc cell saver, PLT 200cc, 500cc PRBC 06/17 remains on pressors EPI gtt and Dopamine gtt, wean slowly for MAP > 65 on nasal cannula , groin line dc, then evla for getting pt OOB to chair as tolerated aggressive toileting keep in CVICU today ct 1400cc since surgery / re-eval labs in am wean off insulin gtt Objective: GENERAL: SKIN: Warm and dry. prevena dressing to chest , chest tubes in place, A&V wires in place HEAD: Normocephalic. EYES: No scleral icterus. No injection or drainage. NECK: Supple, trachea midline. No JVD or lymphadenopathy. CARDIOVASCULAR: Regular rate and rhythm without murmurs, gallops, or + rubs. mild edema RESPIRATORY: Breath sounds equal bilaterally. No accessory muscle use. diminished in bases , chest tube to wall suction , no air leak GASTROINTESTINAL: Abdomen soft, non-tender, nondistended. MUSCULOSKELETAL: No cyanosis, or edema. BACK: Nontender without obvious deformity. No CVA tenderness. Vital Signs Date Time Temp Pulse Resp B/P (MAP) Pulse Ox O2 Delivery O2 Flow Rate FiO2 06/17/17 12:38 18 06/17/17 12:38 18 06/17/17 11:53 16 06/17/17 11:00 98.5 88 16 94/55 (68) 91/52 (65) 06/17/17 11:00 97 Nasal Cannula 3.00 06/17/17 11:00 88 06/17/17 10:00 90 110/60 06/17/17 09:56 88 98/55 06/17/17 09:08 99 Nasal Cannula 4.00 06/17/17 07:30 99 Nasal Cannula 4.00 06/17/17 07:30 97.9 88 14 109/54 (72) 99 105/56 (72) 06/17/17 07:30 88 06/17/17 03:30 92 06/17/17 03:30 99 Venturi Mask 6.00 50 06/17/17 03:00 98.2 89 20 119/65 (83) 99 125/66 (85) 06/17/17 03:00 88 06/17/17 00:51 85 82/47 06/17/17 00:00 99 Venturi Mask 6.00 50 06/16/17 23:50 97 Venturi Mask 50 06/16/17 23:50 97 Venturi Mask 50 06/16/17 23:50 90 Nasal Cannula 4.00 06/16/17 23:15 99 Mechanical Ventilator 35 06/16/17 23:15 93 06/16/17 23:09 99 Mechanical Ventilator 40 06/16/17 23:08 40 06/16/17 23:07 92 06/16/17 23:00 98.4 91 12 136/77 (96) 99 141/71 (94) 06/16/17 21:00 40 06/16/17 21:00 97 Mechanical Ventilator 40 06/16/17 20:10 99 40 06/16/17 20:00 99 Mechanical Ventilator 50 06/16/17 20:00 79 06/16/17 19:00 79 06/16/17 19:00 97.2 79 14 114/64 (81) 93 101/56 (71) 06/16/17 19:00 79 06/16/17 19:00 93 Mechanical Ventilator 50 06/16/17 19:00 50 06/16/17 18:33 94 50 Labs: Laboratory Tests Test 06/17/17 04:20 White Blood Count 17.6 TH/MM3 (4.0-11.0) Red Blood Count 3.76 MIL/MM3 (4.50-5.90) Hemoglobin 10.5 GM/DL (13.0-17.0) Hematocrit 32.4 % (39.0-51.0) Mean Corpuscular Volume 86.2 FL (80.0-100.0) Mean Corpuscular Hemoglobin 27.9 PG (27.0-34.0) Mean Corpuscular Hemoglobin Concent 32.3 % (32.0-36.0) Red Cell Distribution Width 17.1 % (11.6-17.2) Platelet Count 132 TH/MM3 (150-450) Mean Platelet Volume 8.9 FL (7.0-11.0) Blood Urea Nitrogen 24 MG/DL (7-18) Creatinine 1.11 MG/DL (0.60-1.30) Random Glucose 142 MG/DL (74-106) Calcium Level 7.8 MG/DL (8.5-10.1) Magnesium Level 2.5 MG/DL (1.5-2.5) Sodium Level 141 MEQ/L (136-145) Potassium Level 4.2 MEQ/L (3.5-5.1) Chloride Level 107 MEQ/L (98-107) Carbon Dioxide Level 24.1 MEQ/L (21.0-32.0) Anion Gap 10 MEQ/L (5-15) Estimat Glomerular Filtration Rate 67 ML/MIN (>89) Result Diagram: 06/17/1741906/17/17419 (1) Cardiomyopathy Plan: EF 25-30% severe MR eval for JEREMI when BP tolerates (2) S/P CABG x 3 Plan: ASA, statin OOB as tolerated pulm toileting nebs, ezpap martín 02 for sat > 92% wean pressors as tolerated (3) S/P mitral valve replacement with composite graft (4) Mitral regurgitation (5) CHF (congestive heart failure) Plan: eval for diuresis in am (6) Combined systolic and diastolic congestive heart failure, NYHA class 4 Plan: start BB and JEREMI when BP tolerates Problem Qualifiers (1) CHF (congestive heart failure): Qualified Codes: I50.9 - Heart failure, unspecified Luba Gillette Jun 17, 2017 15:02
--- NOTE | 2017-06-17 15:11 | HHI.FF ---
Face to Face Verification Diagnosis: (1) CHF (congestive heart failure) (2) Mitral regurgitation (3) Cardiomyopathy (4) CAD (coronary artery disease) (5) Combined systolic and diastolic congestive heart failure, NYHA class 4 (6) S/P CABG x 3 (7) S/P mitral valve replacement with composite graft Physical Therapy Order: Evaluate and Treat Home Health Nursing Order: Signs/symptoms of disease process Medication education-adverse effect Wound care and dressing changes Nursing assessment with vital signs Instructions: Heart and Vascular Surgery patients *Special attention to sternal dressing Mandatory frequency Assess and evaluation, 4 days in a row The next week 3X week 2 times a week for 4 weeks 1 time a week for 5 weeks Schedule Heart and Vascular patients for full 60 day certification period Initial visit Review Open Heart Surgery Discharge Instructions (Sternal precautions, Activity, Elastic hose, Incision care, Driving, Incentive spirometry, Smoking, Loyal, Work and other) Need Betadine to paint incision Medication reconciliation Importance of follow up care/ check on appointments Make calendar record temperature daily When to call [facility] nurse, review instructions, phone list Incentive Spirometry, demonstration Visit 1- Begin discharge instruction for patient family and/ or caregiver using teach back method- Signs and symptoms of infection Disease characteristics Medicines and side effects Foods and nutrition/ appetite Infection control/ hand washing/ hygiene Visit 2- Continue teaching Discharge instructions- include additional information on smoking cessation , sternal dressing (sternal vac) Visit 3- Continue teaching- Cough and deep breathing, incision monitoring. Choose my plate Visit 4- Continue teaching- Discuss limitations Discuss how they are feeling Discuss progress toward goals Remaining visits- continue teaching and monitoring PREVENA Single Use Negative Wound Therapy System Caregiver Instruction Sheet 1. A Prevena dressing system was applied to the chest incision during surgery , to promote wound healing. It works via a suction device (negative pressure wound therapy) to remove low to moderate levels of exudate (drainage) and infectious materials. We recommend that the device stay in place for up to seven days, from day of surgery. 2. Day of Surgery__06/16/17 Day of Removal ___06/23/17 3. The dressing should only be removed by a health career center advisor. Please arrange removal of device to coincide with Home Health visit and or with Nursing staff at Rehab 4. If skin reddening or irritation of skin occurs, or excessive drainage, please notify the Cardiovascular Surgeons office at [phone]. 5. Light showering is permissible; however the pump should be disconnected and placed in safe location, where it will not get wet. The dressing should not be exposed to direct spray or submerged in water. No bath tub / shower only. Ensure the end of the tubing attached to the dressing is facing down so that water does not enter the top of the tube. 6. To remove Prevena dressing: press purple button to turn off device / remove the suction. Then disconnect the tubing from the pump. The fixation strips should be stretched away from the skin and the dressing lifted at one corner and peeled back until it has been fully removed. 7. After removal, it is ok to shower daily using liquid dial soap and clean wash cloth, rinse and pat dry, and leave incision open to air dry. For any concerns regarding Prevena dressing, and or wounds, please contact Daphne Lei, patient navigator at [phone] or notify the Cardiovascular Surgeons office at [phone]. Incentive spirometry Q1 hr x 10, while awake, also use acapella device hourly whole awake Sternal Breast Bone Precautions: NO pushing or pulling, ( pt must use sternal pillow to support chest with all activities and with coughing ( takes up to 3 months breast bone to heal ) Daily incision care: ok to shower daily, no tub bath. Wash all incisions with liquid dial soap, clean wash cloth to each site, rinse and pat dry. Observe for any signs of infection, such as drainage which is dark yellow, armijo, green or foul smelling. Immediately report to the surgeon any drainage from the chest incision, or legs, and for any abnormal drainage from the chest tube sites. Notify surgeon if any temp >101.5 degrees F. When specialty dressing removed/ or if you do not have one, continue to shower daily as above, then rinse and pat incision dry and paint with betadine daily x 5 days. Allow steri strips to fall off if you have any. Avoid lotions, creams, salves, oils, etc. for the first month Please see attached forms for additional instructions regarding post Open Heart specialty wound vacuum dressings. JOSE ELIAS or Prevena , Dressing to be removed by Nursing staff on __06/23/[address] Jarvis patients , please obtain CBC, BMP, PA & Lat CXR in 2 weeks, results to Dr. Jarvis ( prescription will be given) ( ) (Tele: [phone]) , Valve replacement pts will need 2decho in 2 weeks with results to Dr. Jarvis . Please obtain 2 d echo at your sound recording technician office if possible F/U appointment: as per DC instructions: PCP in 2 weeks, CV surgeon 2 weeks, Music Historian 3-4 weeks For any questions regarding incisions/ dressing / meds / post op care or above Symptoms, Thursday 8am-5pm Heart & Vascular Surgery Office ( Dr. Marie & Dr. Jarvis), After Hours / Nights (5pm -8am) Weekends and Holidays Please call [facility] ([facility]) Charge Nurse I have seen patient Ervin Tee on 06/17/17. My clinical findings support the need for the requested home health care services because: Patient has SOB Deconditioned w/ increased weakness I certify that my clinical findings support that this patient is homebound because: Post-op weakness Luba Gillette Jun 17, 2017 15:11
[2017-06-18] VITALS (10 sets, daily range): BP systolic 131–141; BP diastolic 75–82; PULSE 82–94; RESP 16–20; TEMP 97.5–98.1; O2SAT 98–99
[2017-06-18] MEDS: oxyCODONE/ACETAMINOPHEN 5 MG/325 MG TAB PO PRN ×6 (02:38→20:19)
[2017-06-18] MEDS: RESP: ALBUTEROL 2.5 MG/IPRATROPIUM 0.5 MG NEB (SCH) NEB ×4 (03:16→22:32)
[2017-06-18 04:59] LABS: HEMATOCRIT 29.2 % (39.0-51.0); MEAN CELL VOLUME 86.6 FL (80.0-100.0); MEAN CORPUSCULAR HEMOGLOBIN 28.4 PG (27.0-34.0); MEAN CORPUSCULAR HGB CONC 32.8 % (32.0-36.0); PLATELET COUNT 82 TH/MM3 (150-450); RED BLOOD COUNT 3.38 MIL/MM3 (4.50-5.90); RED CELL DISTRIBUTION WIDTH 17.9 % (11.6-17.2); WHITE BLOOD COUNT 15.3 TH/MM3 (4.0-11.0)
[2017-06-18 05:01] LABS: REVIEW FLAG FINAL
[2017-06-18 05:22] LABS: BICARBONATE 25.7 MEQ/L (21.0-32.0); MAGNESIUM 2.1 MG/DL (1.5-2.5); POTASSIUM 4.5 MEQ/L (3.5-5.1)
[2017-06-18] MEDS: PANTOPRAZOLE SOD 40 MG DELAYED RELEASE TAB PO SCH (06:17)
--- NOTE | 2017-06-18 07:59 | HHI.CCPN ---
Subjective Remarks/Hospital Course History of Present Illness 62-year-old male with a past medical history of COPD and chronic back pain who presented for shortness of breath. He has been having shortness of breath seemed he was diagnosed with COPD by his PCP, Dr. Collins. He does not take any medications at home for COPD. He does continue to smoke. He has a chronic dry cough, unchanged. He was taken to cardiac catheterization lab by Dr. Clinton with findings of Severe three-vessel [place] coronary artery disease, Severely reduced left ventricular systolic function with estimated EF 25%, 3+ mitral regurgitation, and Mild pulmonary hypertension. Today June 16 he was taken to operating room for three-vessel CABG and mitral valve repair. Subjective: 06/17: Last night upon arrival to CVICU, the patient was successfully extubated at 11:50 PM the patient was weaned from Ventimask to currently 4 L/m nasal cannula and continues in sinus rhythm. Chest tube output upon presentation to CVICU was 450 cc, overnight over 12 hours an additional 950 cc via chest tube drainage was noted. In the last 2 hours chest tube drainage total approximately 60 cc, hemodynamically stable. Awake and alert oriented , with the VAS pain score of 6/10 advanced to by mouth narcotics and diet. Plan for removal of right femoral arterial line and out of bed to chair. Patient instructed in incentive spirometry use. 06/18: No acute events overnight. Approximately 730 cc drainage from chest tube on the with the average of 60 cc/hour ( serous). Patient reluctant to utilize incentive spirometry secondary to postoperative pain concerns. Patient complains of pain VAS scale 8/10. Ofirmev 24 hours added to medication regimen. Objective Vital Signs Date Time Temp Pulse Resp B/P (MAP) Pulse Ox O2 Delivery O2 Flow Rate FiO2 06/18/17 04:51 94 06/18/17 03:15 97.8 20 132/81 (98) 99 06/18/17 03:15 Nasal Cannula 2.00 06/17/17 03:30 50 Intake and Output 06/18/17 06/18/17 06/19/17 08:00 16:00 00:00 Intake Total 1455 ml Output Total 880 ml Balance 575 ml Result Diagram: 06/18/17 0422 06/18/17 0422 Imaging Last 24 hours Impressions Chest X-Ray 06/16/17 0000 Signed Impressions: Service Date/Time: Friday, June 16, 2017 19:56 - CONCLUSION: Pulmonary edema mainly in the right lung, however underlying pneumonia is difficult to exclude. Rito Quiles MD Objective Remarks GENERAL: Well-developed and well-nourished elderly-appearing gentleman out of bed in chair SKIN: Warm and dry. HEAD: Normocephalic. EYES: No scleral icterus. No injection or drainage. NECK: Supple, trachea midline. No JVD or lymphadenopathy. CARDIOVASCULAR: Regular rate and rhythm without murmurs, gallops, or rubs. RESPIRATORY: Breath sounds equal bilaterally. No accessory muscle use. Chest tube drainage serous minimal GASTROINTESTINAL: Abdomen soft, non-tender, nondistended. MUSCULOSKELETAL: No cyanosis, or edema. Yinka bandage left lower extremity slightly cold to touch capillary refill brisk less than 2 seconds. Dopplerable DP, PT biphasic pulses BACK: Nontender without obvious deformity. NEURO EXAM: GCS: M6 V5 E4. Follows commands 4 extremities Mental Status: The patient is appropriate Cranial Nerves: Pupils are round, reactive to light. Procedures cardiac cath SHAUNA 06/16 CABG w/ MVR Date of Insertion: Jun 16, 2017 Line: Central Venous Catheter Side: Left Location: Subclavian A/P Assessment and Plan Respiratory failure-resolved - Maintain O2 sat greater than 92%, early on O2 via nasal cannula 4 L/m continue to wean - Encourage use incentive spirometry every hour while awake - DuoNeb's when necessary and scheduled COPD - No exacerbation - No indication for steroids - DuoNeb scheduled and when necessary Coronary artery disease - Status post triple-vessel CABG and MVR POD #1 - Further management per cardiology and cardiothoracic surgery Hypotension - Post general anesthesia - Epinephrine and dopamine drip, wean as tolerated - Monitor SVV and fluids replacement as indicated DVT GI prophylaxis - Teds SCDs - SQ heparin per CTS recommendations - Pepcid Musculoskeletal PT evaluation and treat Dispo: Discussed with SOFTWARE INSTALLATION ENGINEER at bedside (Dilma) Level 3 Thank you for allowing participation in the care of this patient. Critical care medicine will sign off. Physician Lucero Fontanez MD Jun 18, 2017 07:59
[2017-06-18] MEDS: ACETAMINOPHEN 1000 MG/100 ML 100 ML IV SCH ×3 (08:32→20:06)
[2017-06-18] MEDS: ASPIRIN 81 MG CHEW TAB PO SCH (09:00)
--- NOTE | 2017-06-18 09:11 | PD.CAR.PN ---
CVT Progress Note Subjective/Hospital Course: 62-year-old male with a past medical history of COPD and chronic back pain who presented for shortness of breath. He has been having shortness of breath seemed he was diagnosed with COPD by his PCP, Dr. Collins. He does not take any medications at home for COPD. He does continue to smoke. He has a chronic dry cough, unchanged. He was taken to cardiac catheterization lab by Dr. Clinton with findings of Severe three-vessel [place] coronary artery disease, Severely reduced left ventricular systolic function with estimated EF 25%, 3+ mitral regurgitation, and Mild pulmonary hypertension. Bruno completed today EF 25-30% severe systolic dysfunction ,severe MR Combined systolic and diastolic congestive heart failure, NYHA class 4 Mitral regurgitation Cardiomyopathy CAD (coronary artery disease) surgery : CABG x 3, NEGRON to LAD - good, SVG to D1 - good, SVG to PDA - good, Mitral valve repair with a 30 [address] [place], BRUNO extubated after surgery 41oocc crystalloid, 750cc cell saver, PLT 200cc, 500cc PRBC 06/17 remains on pressors EPI gtt and Dopamine gtt, wean slowly for MAP > 65 on nasal cannula , groin line dc, then evla for getting pt OOB to chair as tolerated aggressive toileting keep in CVICU today ct 1400cc since surgery / re-eval labs in am wean off insulin gtt 06/18 weaned off all pressors and insulin gtt, painful, meds adjusted hold on diuresis , neg balance , chest tube with 730cc/ 12 hr will transfer to stepdown Objective: GENERAL: SKIN: Warm and dry. prevena dressing to chest , incision intact to leg HEAD: Normocephalic. EYES: No scleral icterus. No injection or drainage. NECK: Supple, trachea midline. No JVD or lymphadenopathy. CARDIOVASCULAR: Regular rate and rhythm without murmurs, gallops, or rubs. RESPIRATORY: Breath sounds equal bilaterally. No accessory muscle use. diminished in bases, chest tube to wall suction, no air leak GASTROINTESTINAL: Abdomen soft, non-tender, nondistended. MUSCULOSKELETAL: No cyanosis, or edema. BACK: Nontender without obvious deformity. No CVA tenderness. Vital Signs Date Time Temp Pulse Resp B/P (MAP) Pulse Ox O2 Delivery O2 Flow Rate FiO2 06/18/17 08:38 16 06/18/17 07:00 99 Nasal Cannula 2.00 06/18/17 07:00 92 06/18/17 07:00 97.5 92 16 131/81 (98) 99 06/18/17 04:51 94 06/18/17 03:15 97.8 94 20 132/81 (98) 99 06/18/17 03:15 99 Nasal Cannula 2.00 06/17/17 23:30 95 06/17/17 23:30 90 Nasal Cannula 2.00 06/17/17 23:30 97.9 94 18 143/87 (105) 90 144/76 (98) 06/17/17 21:10 96 Nasal Cannula 2.00 06/17/17 19:45 99 Nasal Cannula 1.00 06/17/17 19:45 97.4 89 18 130/80 (97) 99 114/60 (78) 06/17/17 19:00 90 06/17/17 16:00 88 110/68 06/17/17 15:00 97.1 71 16 104/57 (73) 101/57 (72) 06/17/17 15:00 99 Nasal Cannula 2.00 06/17/17 15:00 86 06/17/17 12:38 18 06/17/17 12:38 18 06/17/17 11:00 98.5 88 16 94/55 (68) 91/52 (65) 06/17/17 11:00 97 Nasal Cannula 3.00 06/17/17 11:00 88 06/17/17 10:00 90 110/60 06/17/17 09:56 88 98/55 Labs: Laboratory Tests Test 06/18/17 04:22 White Blood Count 15.3 TH/MM3 (4.0-11.0) Red Blood Count 3.38 MIL/MM3 (4.50-5.90) Hemoglobin 9.6 GM/DL (13.0-17.0) Hematocrit 29.2 % (39.0-51.0) Mean Corpuscular Volume 86.6 FL (80.0-100.0) Mean Corpuscular Hemoglobin 28.4 PG (27.0-34.0) Mean Corpuscular Hemoglobin Concent 32.8 % (32.0-36.0) Red Cell Distribution Width 17.9 % (11.6-17.2) Platelet Count 82 TH/MM3 (150-450) Mean Platelet Volume 9.4 FL (7.0-11.0) Blood Urea Nitrogen 30 MG/DL (7-18) Creatinine 1.04 MG/DL (0.60-1.30) Random Glucose 113 MG/DL (74-106) Calcium Level 7.8 MG/DL (8.5-10.1) Phosphorus Level 3.2 MG/DL (2.5-4.9) Magnesium Level 2.1 MG/DL (1.5-2.5) Sodium Level 135 MEQ/L (136-145) Potassium Level 4.5 MEQ/L (3.5-5.1) Chloride Level 103 MEQ/L (98-107) Carbon Dioxide Level 25.7 MEQ/L (21.0-32.0) Anion Gap 6 MEQ/L (5-15) Estimat Glomerular Filtration Rate 72 ML/MIN (>89) Result Diagram: 06/18/1742106/18/17421 (1) Cardiomyopathy Plan: EF 25-30% severe MR eval for JEREMI when BP tolerates start BB today (2) S/P CABG x 3 Plan: ASA, statin OOB as tolerated pulm toileting nebs, ezpap martín 02 for sat > 92% wean pressors as tolerated (3) S/P mitral valve replacement with composite graft (4) Mitral regurgitation (5) CHF (congestive heart failure) Plan: eval for diuresis in am / diuresing through chest tubes (6) Combined systolic and diastolic congestive heart failure, NYHA class 4 Plan: start BB and JEREMI when BP tolerates Problem Qualifiers (1) CHF (congestive heart failure): Qualified Codes: I50.9 - Heart failure, unspecified Luba Gillette Jun 18, 2017 09:11
[2017-06-18] MEDS ORDERED: DEXTROSE 50% IN WATER 50 ML VIAL(D50) IV PUSH PRN (09:15)
[2017-06-18] MEDS ORDERED: BISACODYL 10 MG SUPP RECTAL PRN (09:15)
[2017-06-18] MEDS ORDERED: SOD PHOSPHATE/SOD BIPHOSPHATE (ADULT) ENEMA 133ML RECTAL PRN (09:15)
[2017-06-18] MEDS ORDERED: GLUCAGON 1 MG/ML VIAL OTHER PRN (09:15)
[2017-06-18] MEDS: DOCUSATE SODIUM 50 MG/SENNA 8.6 MG TAB PO SCH ×2 (09:46→20:19)
[2017-06-18] MEDS: GABAPENTIN 300 MG CAP PO SCH ×2 (09:46→20:19)
[2017-06-18] MEDS: ATORVASTATIN 40 MG TAB PO SCH (09:46)
[2017-06-18] MEDS: SODIUM CHLORIDE 0.9% FLUSH 10 ML FLUSH IV FLUSH SCH ×2 (09:48→20:19)
[2017-06-18] MEDS: INSULIN ASPART SUPPLEMENTAL SCALE SQ SCH ×4 (10:00→22:00)
[2017-06-18] MEDS: METOPROLOL TARTRATE 25 MG TAB PO SCH ×2 (10:56→20:19)
[2017-06-18] MEDS: MAGNESIUM HYDROXIDE SUSP 30 ML CUP PO SCH (10:56)
[2017-06-18] MEDS: POLYETHYLENE GLYCOL 17 GM PKG PO SCH (10:56)
[2017-06-18] MEDS ORDERED: PILL SPLITTER OTHER PRN (11:00)
[2017-06-18] MEDS: SENNOSIDES 8.6 MG TAB PO SCH (20:19)
[2017-06-19] VITALS (26 sets, daily range): BP systolic 100–130; BP diastolic 54–84; PULSE 76–95; RESP 16–20; TEMP 97.5–98.4; O2SAT 97–100
[2017-06-19] MEDS: oxyCODONE/ACETAMINOPHEN 5 MG/325 MG TAB PO PRN ×6 (00:43→20:16)
[2017-06-19] MEDS: INSULIN ASPART SUPPLEMENTAL SCALE SQ SCH ×6 (02:00→21:00)
[2017-06-19] MEDS: ACETAMINOPHEN 1000 MG/100 ML 100 ML IV SCH (03:52)
[2017-06-19 05:18] LABS: AUTOMATED NEUTROPHIL # 7.6 TH/MM3 (1.8-7.7); BASOPHIL % 0.3 % (0.0-2.0); EOSINOPHIL # 0.2 TH/MM3 (0-0.4); HEMATOCRIT 28.2 % (39.0-51.0); LYMPH % 20.1 % (9.0-44.0); LYMPHOCYTE # 2.3 TH/MM3 (1.0-4.8); MEAN CELL VOLUME 87.9 FL (80.0-100.0); MEAN CORPUSCULAR HEMOGLOBIN 28.2 PG (27.0-34.0); MONO % 9.8 % (0.0-8.0); NEUT % 67.8 % (16.0-70.0); PLATELET COUNT 82 TH/MM3 (150-450); RED BLOOD COUNT 3.21 MIL/MM3 (4.50-5.90); RED CELL DISTRIBUTION WIDTH 17.7 % (11.6-17.2); WHITE BLOOD COUNT 11.2 TH/MM3 (4.0-11.0)
[2017-06-19 05:41] LABS: MAGNESIUM 1.9 MG/DL (1.5-2.5); POTASSIUM 4.6 MEQ/L (3.5-5.1)
[2017-06-19 05:45] LABS: HEMO FLAGS AUTO DIFF
[2017-06-19] MEDS: PANTOPRAZOLE SOD 40 MG DELAYED RELEASE TAB PO SCH (06:32)
[2017-06-19 06:45] LABS: SCAN/DIFF AUTO DIFF CONFIRMED
[2017-06-19 06:47] LABS: PLATELET ESTIMATE SMEAR LOW (NORMAL); PLATELET MORPHOLOGY NORMAL (NORMAL)
[2017-06-19] MEDS: RESP: ALBUTEROL 2.5 MG/IPRATROPIUM 0.5 MG NEB (SCH) NEB ×3 (08:15→21:42)
[2017-06-19] MEDS: MAGNESIUM HYDROXIDE SUSP 30 ML CUP PO SCH (08:29)
[2017-06-19] MEDS: POLYETHYLENE GLYCOL 17 GM PKG PO SCH (08:29)
[2017-06-19] MEDS: DOCUSATE SODIUM 50 MG/SENNA 8.6 MG TAB PO SCH ×2 (08:30→21:11)
[2017-06-19] MEDS: METOPROLOL TARTRATE 25 MG TAB PO SCH ×2 (08:30→21:11)
[2017-06-19] MEDS: ASPIRIN 81 MG CHEW TAB PO SCH (08:30)
[2017-06-19] MEDS: GABAPENTIN 300 MG CAP PO SCH ×2 (08:30→21:10)
[2017-06-19] MEDS: ATORVASTATIN 40 MG TAB PO SCH (08:30)
[2017-06-19] MEDS: SODIUM CHLORIDE 0.9% FLUSH 10 ML FLUSH IV FLUSH SCH ×2 (08:30→21:00)
[2017-06-19] MEDS: MULTIVITAMINS/MINERALS THERAPEUTIC TAB PO SCH (08:30)
--- NOTE | 2017-06-19 15:29 | PD.CAR.PN ---
CVT Progress Note Subjective/Hospital Course: 62-year-old male with a past medical history of COPD and chronic back pain who presented for shortness of breath. He has been having shortness of breath seemed he was diagnosed with COPD by his PCP, Dr. Collins. He does not take any medications at home for COPD. He does continue to smoke. He has a chronic dry cough, unchanged. He was taken to cardiac catheterization lab by Dr. Clinton with findings of Severe three-vessel [place] coronary artery disease, Severely reduced left ventricular systolic function with estimated EF 25%, 3+ mitral regurgitation, and Mild pulmonary hypertension. Bruno completed today EF 25-30% severe systolic dysfunction ,severe MR Combined systolic and diastolic congestive heart failure, NYHA class 4 Mitral regurgitation Cardiomyopathy CAD (coronary artery disease) surgery : CABG x 3, NEGRON to LAD - good, SVG to D1 - good, SVG to PDA - good, Mitral valve repair with a 30 [place], BRUNO extubated after surgery 41oocc crystalloid, 750cc cell saver, PLT 200cc, 500cc PRBC 06/17 remains on pressors EPI gtt and Dopamine gtt, wean slowly for MAP > 65 on nasal cannula , groin line dc, then evla for getting pt OOB to chair as tolerated aggressive toileting keep in CVICU today ct 1400cc since surgery / re-eval labs in am wean off insulin gtt 06/18 weaned off all pressors and insulin gtt, painful, meds adjusted hold on diuresis , neg balance , chest tube with 730cc/ 12 hr will transfer to stepdown 06/19 chest tube had 450cc serous drainage, no air leak / leave chest tubes in OOB, ambulate pulm toileting Objective: GENERAL: SKIN: Warm and dry. prevena dressign to [place], incision intact to leg HEAD: Normocephalic. EYES: No scleral icterus. No injection or drainage. NECK: Supple, trachea midline. No JVD or lymphadenopathy. CARDIOVASCULAR: Regular rate and rhythm without murmurs, gallops, or rubs. RESPIRATORY: Breath sounds equal bilaterally. No accessory muscle use. chest tube, no air leak / + suction / drained 450cc serous drainage GASTROINTESTINAL: Abdomen soft, non-tender, nondistended. MUSCULOSKELETAL: No cyanosis, or edema. BACK: Nontender without obvious deformity. No CVA tenderness. Vital Signs Date Time Temp Pulse Resp B/P (MAP) Pulse Ox O2 Delivery O2 Flow Rate FiO2 06/19/17 15:20 98 Room Air 06/19/17 15:20 98.4 76 16 101/54 (70) 98 06/19/17 14:00 82 06/19/17 13:00 84 06/19/17 12:00 81 06/19/17 11:17 97.5 84 16 111/64 (80) 98 06/19/17 11:07 98 Nasal Cannula 2.00 06/19/17 11:00 80 06/19/17 10:00 80 06/19/17 09:00 84 06/19/17 08:16 98 Nasal Cannula 2.00 06/19/17 08:00 83 06/19/17 07:30 100 Nasal Cannula 2.00 06/19/17 07:30 97.6 86 16 121/72 (88) 100 06/19/17 07:00 86 06/19/17 04:00 98 Nasal Cannula 2.00 06/19/17 03:33 98.0 91 20 118/59 (78) 100 06/19/17 01:00 95 06/19/17 00:00 92 06/19/17 00:00 97 Nasal Cannula 2.00 06/19/17 00:00 97.9 85 20 130/84 (99) 100 06/18/17 23:00 85 06/18/17 22:32 98 Nasal Cannula 2.00 06/18/17 22:00 85 06/18/17 19:00 98.1 82 20 131/75 (93) 98 Arterial Line 06/18/17 19:00 97 Nasal Cannula 2.00 06/18/17 19:00 82 Labs: Laboratory Tests Test 06/19/17 04:44 White Blood Count 11.2 TH/MM3 (4.0-11.0) Red Blood Count 3.21 MIL/MM3 (4.50-5.90) Hemoglobin 9.0 GM/DL (13.0-17.0) Hematocrit 28.2 % (39.0-51.0) Mean Corpuscular Volume 87.9 FL (80.0-100.0) Mean Corpuscular Hemoglobin 28.2 PG (27.0-34.0) Mean Corpuscular Hemoglobin Concent 32.0 % (32.0-36.0) Red Cell Distribution Width 17.7 % (11.6-17.2) Platelet Count 82 TH/MM3 (150-450) Mean Platelet Volume 9.9 FL (7.0-11.0) Neutrophils (%) (Auto) 67.8 % (16.0-70.0) Lymphocytes (%) (Auto) 20.1 % (9.0-44.0) Monocytes (%) (Auto) 9.8 % (0.0-8.0) Eosinophils (%) (Auto) 2.0 % (0.0-4.0) Basophils (%) (Auto) 0.3 % (0.0-2.0) Neutrophils # (Auto) 7.6 TH/MM3 (1.8-7.7) Lymphocytes # (Auto) 2.3 TH/MM3 (1.0-4.8) Monocytes # (Auto) 1.1 TH/MM3 (0-0.9) Eosinophils # (Auto) 0.2 TH/MM3 (0-0.4) Basophils # (Auto) 0.0 TH/MM3 (0-0.2) CBC Comment AUTO DIFF Differential Comment AUTO DIFF CONFIRMED Platelet Estimate LOW (NORMAL) Platelet Morphology Comment NORMAL (NORMAL) Blood Urea Nitrogen 24 MG/DL (7-18) Creatinine 0.86 MG/DL (0.60-1.30) Random Glucose 110 MG/DL (74-106) Calcium Level 7.7 MG/DL (8.5-10.1) Magnesium Level 1.9 MG/DL (1.5-2.5) Sodium Level 135 MEQ/L (136-145) Potassium Level 4.6 MEQ/L (3.5-5.1) Chloride Level 103 MEQ/L (98-107) Carbon Dioxide Level 27.0 MEQ/L (21.0-32.0) Anion Gap 5 MEQ/L (5-15) Estimat Glomerular Filtration Rate 90 ML/MIN (>89) Result Diagram: 06/19/1744306/19/17443 Telemetry: NSR (1) Cardiomyopathy Plan: EF 25-30% severe MR low dose jeremi and BB (2) S/P CABG x 3 Plan: ASA, statin OOB as tolerated pulm toileting nebs, ezpap martín 02 for sat > 92% leave chest tube in (3) S/P mitral valve replacement with composite graft (4) Mitral regurgitation (5) CHF (congestive heart failure) Plan: eval for diuresis in am / diuresing through chest tubes (6) Combined systolic and diastolic congestive heart failure, NYHA class 4 Plan: BB and JEREMI as tolerated Problem Qualifiers (1) CHF (congestive heart failure): Qualified Codes: I50.9 - Heart failure, unspecified Luba Gillette Jun 19, 2017 15:29
[2017-06-19] MEDS: SENNOSIDES 8.6 MG TAB PO SCH (21:11)
[2017-06-20] VITALS (26 sets, daily range): BP systolic 88–116; BP diastolic 55–66; PULSE 74–94; RESP 14–20; TEMP 97.8–98.4; O2SAT 96–98
[2017-06-20] MEDS: oxyCODONE/ACETAMINOPHEN 5 MG/325 MG TAB PO PRN ×6 (01:12→22:23)
[2017-06-20] MEDS: PANTOPRAZOLE SOD 40 MG DELAYED RELEASE TAB PO SCH (06:00)
[2017-06-20] MEDS: INSULIN ASPART SUPPLEMENTAL SCALE SQ SCH ×4 (08:00→21:00)
[2017-06-20] MEDS: RESP: ALBUTEROL 2.5 MG/IPRATROPIUM 0.5 MG NEB (SCH) NEB (08:01)
[2017-06-20] MEDS: POLYETHYLENE GLYCOL 17 GM PKG PO SCH (08:53)
[2017-06-20] MEDS: GABAPENTIN 300 MG CAP PO SCH ×2 (08:54→20:59)
[2017-06-20] MEDS: ENALAPRIL MALEATE 2.5 MG TAB PO SCH (08:54)
[2017-06-20] MEDS: ASPIRIN 81 MG CHEW TAB PO SCH (08:54)
[2017-06-20] MEDS: MAGNESIUM HYDROXIDE SUSP 30 ML CUP PO SCH (08:54)
[2017-06-20] MEDS: ATORVASTATIN 40 MG TAB PO SCH (08:55)
[2017-06-20] MEDS: METOPROLOL TARTRATE 25 MG TAB PO SCH ×2 (08:55→20:57)
[2017-06-20] MEDS: MULTIVITAMINS/MINERALS THERAPEUTIC TAB PO SCH (08:55)
[2017-06-20] MEDS: DOCUSATE SODIUM 50 MG/SENNA 8.6 MG TAB PO SCH ×2 (08:55→20:59)
[2017-06-20] MEDS: SODIUM CHLORIDE 0.9% FLUSH 10 ML FLUSH IV FLUSH SCH ×2 (09:00→20:57)
--- NOTE | 2017-06-20 09:22 | PD.CAR.PN ---
CVT Progress Note Subjective/Hospital Course: 62-year-old male with a past medical history of COPD and chronic back pain who presented for shortness of breath. He has been having shortness of breath seemed he was diagnosed with COPD by his PCP, Dr. Collins. He does not take any medications at home for COPD. He does continue to smoke. He has a chronic dry cough, unchanged. He was taken to cardiac catheterization lab by Dr. Clinton with findings of Severe three-vessel [place] coronary artery disease, Severely reduced left ventricular systolic function with estimated EF 25%, 3+ mitral regurgitation, and Mild pulmonary hypertension. Bruno completed today EF 25-30% severe systolic dysfunction ,severe MR Combined systolic and diastolic congestive heart failure, NYHA class 4 Mitral regurgitation Cardiomyopathy CAD (coronary artery disease) surgery : CABG x 3, NEGRON to LAD - good, SVG to D1 - good, SVG to PDA - good, Mitral valve repair with a 30 [place], BRUNO extubated after surgery 41oocc crystalloid, 750cc cell saver, PLT 200cc, 500cc PRBC 06/17 remains on pressors EPI gtt and Dopamine gtt, wean slowly for MAP > 65 on nasal cannula , groin line dc, then evla for getting pt OOB to chair as tolerated aggressive toileting keep in CVICU today ct 1400cc since surgery / re-eval labs in am wean off insulin gtt 06/18 weaned off all pressors and insulin gtt, painful, meds adjusted hold on diuresis , neg balance , chest tube with 730cc/ 12 hr will transfer to stepdown 06/19 chest tube had 450cc serous drainage, no air leak / leave chest tubes in OOB, ambulate pulm toileting 06/[address] drained 1110 mls yesterday.Maintain to drainage. Re-evaluate for removal in am Ambulate and IC Objective: Vital Signs Date Time Temp Pulse Resp B/P (MAP) Pulse Ox O2 Delivery O2 Flow Rate FiO2 06/20/17 08:00 88 06/20/17 07:15 88 06/20/17 07:15 96 Room Air 06/20/17 07:15 98.0 88 16 101/66 (78) 96 06/20/17 06:00 94 06/20/17 05:00 90 06/20/17 04:00 90 06/20/17 03:04 97 Room Air 06/20/17 03:04 98.0 88 20 108/58 (75) 98 06/20/17 03:00 92 06/20/17 02:02 92 06/20/17 01:00 93 06/20/17 00:00 90 06/19/17 23:54 97.9 90 20 108/62 (77) 98 06/19/17 23:01 97 Room Air 06/19/17 23:01 92 06/19/17 22:00 94 06/19/17 21:00 90 06/19/17 20:05 98 06/19/17 20:00 97 Room Air 06/19/17 20:00 98.2 76 20 100/58 (72) 97 06/19/17 20:00 85 06/19/17 19:00 76 06/19/17 18:00 88 06/19/17 17:00 80 06/19/17 16:00 86 06/19/17 15:20 98 Room Air 06/19/17 15:20 98.4 76 16 101/54 (70) 98 06/19/17 15:00 81 06/19/17 14:00 82 06/19/17 13:00 84 06/19/17 12:00 81 06/19/17 11:17 97.5 84 16 111/64 (80) 98 06/19/17 11:07 98 Nasal Cannula 2.00 06/19/17 11:00 80 06/19/17 10:00 80 Result Diagram: 06/19/17 0444 06/19/17 044 (1) Cardiomyopathy Plan: EF 25-30% severe MR low dose jeremi and BB (2) S/P CABG x 3 Plan: ASA, statin OOB as tolerated pulm toileting nebs, ezpap martín 02 for sat > 92% leave chest tube in (3) S/P mitral valve replacement with composite graft (4) Mitral regurgitation (5) CHF (congestive heart failure) Plan: eval for diuresis in am / diuresing through chest tubes (6) Combined systolic and diastolic congestive heart failure, NYHA class 4 Plan: BB and JEREMI as tolerated Problem Qualifiers (1) CHF (congestive heart failure): Qualified Codes: I50.9 - Heart failure, unspecified Saul Marie MD Jun 20, 2017 09:22
[2017-06-20] MEDS: SENNOSIDES 8.6 MG TAB PO SCH (20:59)
[2017-06-21] VITALS (29 sets, daily range): BP systolic 97–119; BP diastolic 53–75; PULSE 83–101; RESP 16–18; TEMP 97.6–98.8; O2SAT 93–100
[2017-06-21] MEDS: oxyCODONE/ACETAMINOPHEN 5 MG/325 MG TAB PO PRN ×5 (02:47→22:00)
[2017-06-21] MEDS: PANTOPRAZOLE SOD 40 MG DELAYED RELEASE TAB PO SCH (06:03)
[2017-06-21] MEDS: INSULIN ASPART SUPPLEMENTAL SCALE SQ SCH ×4 (08:00→21:00)
--- NOTE | 2017-06-21 08:34 | PD.CAR.PN ---
CVT Progress Note CVT: POD #: 5 Subjective/Hospital Course: 62-year-old male with a past medical history of COPD and chronic back pain who presented for shortness of breath. He has been having shortness of breath seemed he was diagnosed with COPD by his PCP, Dr. Collins. He does not take any medications at home for COPD. He does continue to smoke. He has a chronic dry cough, unchanged. He was taken to cardiac catheterization lab by Dr. Clinton with findings of Severe three-vessel [place] coronary artery disease, Severely reduced left ventricular systolic function with estimated EF 25%, 3+ mitral regurgitation, and Mild pulmonary hypertension. Bruno completed today EF 25-30% severe systolic dysfunction ,severe MR Combined systolic and diastolic congestive heart failure, NYHA class 4 Mitral regurgitation Cardiomyopathy CAD (coronary artery disease) surgery : CABG x 3, NEGRON to LAD - good, SVG to D1 - good, SVG to PDA - good, Mitral valve repair with a 30 [address] [place], BRUNO extubated after surgery 41oocc crystalloid, 750cc cell saver, PLT 200cc, 500cc PRBC 06/17 remains on pressors EPI gtt and Dopamine gtt, wean slowly for MAP > 65 on nasal cannula , groin line dc, then evla for getting pt OOB to chair as tolerated aggressive toileting keep in CVICU today ct 1400cc since surgery / re-eval labs in am wean off insulin gtt 06/18 weaned off all pressors and insulin gtt, painful, meds adjusted hold on diuresis , neg balance , chest tube with 730cc/ 12 hr will transfer to stepdown 06/19 chest tube had 450cc serous drainage, no air leak / leave chest tubes in OOB, ambulate pulm toileting 06/[address] drained 1110 mls yesterday.Maintain to drainage. Re-evaluate for removal in am Ambulate and IC 06/21/17 Doing well today. No complaints Objective: Vital Signs Date Time Temp Pulse Resp B/P (MAP) Pulse Ox O2 Delivery O2 Flow Rate FiO2 06/21/17 08:00 96 06/21/17 07:22 97.7 96 16 119/75 (90) 95 06/21/17 07:00 98 06/21/17 06:00 92 06/21/17 05:00 94 06/21/17 04:00 92 06/21/17 03:45 18 06/21/17 03:00 97.8 92 18 106/56 (73) 99 06/21/17 03:00 98 06/21/17 02:00 94 06/21/17 01:00 92 06/21/17 00:00 88 06/20/17 23:00 88 06/20/17 23:00 97.8 87 18 103/61 (75) 98 06/20/17 22:00 88 06/20/17 21:00 84 06/20/17 20:20 98 21 06/20/17 20:00 84 06/20/17 19:00 94 06/20/17 19:00 98.4 74 18 93/55 (68) 97 06/20/17 18:00 84 06/20/17 17:00 89 06/20/17 16:10 89 06/20/17 15:00 84 06/20/17 15:00 98.1 75 14 88/55 (66) 96 06/20/17 15:00 96 Room Air 06/20/17 14:00 83 06/20/17 13:00 88 06/20/17 12:26 93 06/20/17 11:00 98 Room Air 06/20/17 11:00 90 06/20/17 11:00 98.1 88 16 116/64 (81) 98 06/20/17 10:00 91 06/20/17 09:00 90 Result Diagram: 06/19/174 06/19/17443 Cardiovascular: RRR Telemetry: NSR Pulmonary: CTA GI/: NABS, NT Incision: dry and intact CT: 970ml/24 hrs Plan: ~5 kg up from preop weight - will initiate lasix today CBC, BMP, CXR in am Chest tubes to water seal (1) Cardiomyopathy Plan: EF 25-30% severe MR low dose jeremi and BB (2) S/P CABG x 3 Plan: ASA, statin OOB as tolerated pulm toileting nebs, ezpap martín 02 for sat > 92% leave chest tube in (3) S/P mitral valve replacement with composite graft (4) Mitral regurgitation (5) CHF (congestive heart failure) Plan: eval for diuresis in am / diuresing through chest tubes (6) Combined systolic and diastolic congestive heart failure, NYHA class 4 Plan: BB and JEREMI as tolerated Problem Qualifiers (1) CHF (congestive heart failure): Qualified Codes: I50.9 - Heart failure, unspecified Nury Jarvis MD Jun 21, 2017 08:34
[2017-06-21] MEDS: SODIUM CHLORIDE 0.9% FLUSH 10 ML FLUSH IV FLUSH SCH ×2 (08:44→20:00)
[2017-06-21] MEDS: POLYETHYLENE GLYCOL 17 GM PKG PO SCH (08:44)
[2017-06-21] MEDS: MULTIVITAMINS/MINERALS THERAPEUTIC TAB PO SCH (08:44)
[2017-06-21] MEDS: FUROSEMIDE 40 MG/4 ML VIAL IV PUSH SCH ×2 (08:44→17:10)
[2017-06-21] MEDS: GABAPENTIN 300 MG CAP PO SCH ×2 (08:44→20:00)
[2017-06-21] MEDS: DOCUSATE SODIUM 50 MG/SENNA 8.6 MG TAB PO SCH ×2 (08:44→20:00)
[2017-06-21] MEDS: ATORVASTATIN 40 MG TAB PO SCH (08:44)
[2017-06-21] MEDS: ASPIRIN 81 MG CHEW TAB PO SCH (08:45)
[2017-06-21] MEDS: ENALAPRIL MALEATE 2.5 MG TAB PO SCH (08:45)
[2017-06-21] MEDS: MAGNESIUM HYDROXIDE SUSP 30 ML CUP PO SCH (08:45)
[2017-06-21] MEDS: METOPROLOL TARTRATE 25 MG TAB PO SCH ×2 (08:45→20:00)
[2017-06-21] MEDS: ACETAMINOPHEN 325 MG TAB PO PRN (11:40)
[2017-06-21] MEDS: SENNOSIDES 8.6 MG TAB PO SCH (20:00)
[2017-06-22] VITALS (28 sets, daily range): BP systolic 96–128; BP diastolic 5–78; PULSE 91–113; RESP 18–51; TEMP 97.6–98; O2SAT 94–100
[2017-06-22] MEDS: oxyCODONE/ACETAMINOPHEN 5 MG/325 MG TAB PO PRN ×8 (00:55→23:19)
[2017-06-22 05:26] LABS: MEAN CELL VOLUME 86.7 FL (80.0-100.0); MEAN CORPUSCULAR HEMOGLOBIN 27.7 PG (27.0-34.0); PLATELET COUNT 195 TH/MM3 (150-450); RED BLOOD COUNT 3.81 MIL/MM3 (4.50-5.90); RED CELL DISTRIBUTION WIDTH 17.9 % (11.6-17.2); REVIEW FLAG FINAL; WHITE BLOOD COUNT 10.2 TH/MM3 (4.0-11.0)
[2017-06-22 05:39] LABS: POTASSIUM 4.3 MEQ/L (3.5-5.1)
[2017-06-22] MEDS: METHOCARBAMOL 500 MG TAB PO PRN ×2 (05:53→19:38)
[2017-06-22] MEDS: PANTOPRAZOLE SOD 40 MG DELAYED RELEASE TAB PO SCH (05:53)
[2017-06-22] MEDS: INSULIN ASPART SUPPLEMENTAL SCALE SQ SCH ×4 (08:00→20:31)
[2017-06-22] MEDS: POLYETHYLENE GLYCOL 17 GM PKG PO SCH (09:40)
[2017-06-22] MEDS: DOCUSATE SODIUM 50 MG/SENNA 8.6 MG TAB PO SCH ×2 (09:41→20:22)
[2017-06-22] MEDS: GABAPENTIN 300 MG CAP PO SCH ×2 (09:41→20:22)
[2017-06-22] MEDS: MULTIVITAMINS/MINERALS THERAPEUTIC TAB PO SCH (09:41)
[2017-06-22] MEDS: ASPIRIN 81 MG CHEW TAB PO SCH (09:41)
[2017-06-22] MEDS: ENALAPRIL MALEATE 2.5 MG TAB PO SCH (09:41)
[2017-06-22] MEDS: ATORVASTATIN 40 MG TAB PO SCH (09:41)
[2017-06-22] MEDS: METOPROLOL TARTRATE 25 MG TAB PO SCH ×2 (09:42→20:22)
[2017-06-22] MEDS: MAGNESIUM HYDROXIDE SUSP 30 ML CUP PO SCH (09:42)
[2017-06-22] MEDS: FUROSEMIDE 40 MG/4 ML VIAL IV PUSH SCH (09:43)
[2017-06-22] MEDS: SODIUM CHLORIDE 0.9% FLUSH 10 ML FLUSH IV FLUSH SCH ×2 (09:45→20:24)
--- NOTE | 2017-06-22 09:59 | PD.CAR.PN ---
CVT Progress Note Subjective/Hospital Course: 62-year-old male with a past medical history of COPD and chronic back pain who presented for shortness of breath. He has been having shortness of breath seemed he was diagnosed with COPD by his PCP, Dr. Collins. He does not take any medications at home for COPD. He does continue to smoke. He has a chronic dry cough, unchanged. He was taken to cardiac catheterization lab by Dr. Clinton with findings of Severe three-vessel [place] coronary artery disease, Severely reduced left ventricular systolic function with estimated EF 25%, 3+ mitral regurgitation, and Mild pulmonary hypertension. Bruno completed today EF 25-30% severe systolic dysfunction ,severe MR Combined systolic and diastolic congestive heart failure, NYHA class 4 Mitral regurgitation Cardiomyopathy CAD (coronary artery disease) surgery : CABG x 3, NEGRON to LAD - good, SVG to D1 - good, SVG to PDA - good, Mitral valve repair with a 30 [facility] [place], BRUNO extubated after surgery 41oocc crystalloid, 750cc cell saver, PLT 200cc, 500cc PRBC 06/17 remains on pressors EPI gtt and Dopamine gtt, wean slowly for MAP > 65 on nasal cannula , groin line dc, then evla for getting pt OOB to chair as tolerated aggressive toileting keep in CVICU today ct 1400cc since surgery / re-eval labs in am wean off insulin gtt 06/18 weaned off all pressors and insulin gtt, painful, meds adjusted hold on diuresis , neg balance , chest tube with 730cc/ 12 hr will transfer to stepdown 06/19 chest tube had 450cc serous drainage, no air leak / leave chest tubes in OOB, ambulate pulm toileting 06/[address] drained 1110 mls yesterday.Maintain to drainage. Re-evaluate for removal in am Ambulate and IC 06/21/17 Doing well today. No complaints 06/22 chest tube removed without difficulty on JEREMI, BB decrease lasix - 3500cc/ 24hrs continue pulm toileting, OOB ambulate eval for dc in am Objective: GENERAL: SKIN: Warm and dry. prevena dressing to chest , incision intact to leg HEAD: Normocephalic. EYES: No scleral icterus. No injection or drainage. NECK: Supple, trachea midline. No JVD or lymphadenopathy. CARDIOVASCULAR: Regular rate and rhythm without murmurs, gallops, or rubs. RESPIRATORY: Breath sounds equal bilaterally. No accessory muscle use. chest tube removed without difficulty GASTROINTESTINAL: Abdomen soft, non-tender, nondistended. MUSCULOSKELETAL: No cyanosis, or edema. BACK: Nontender without obvious deformity. No CVA tenderness. Vital Signs Date Time Temp Pulse Resp B/P (MAP) Pulse Ox O2 Delivery O2 Flow Rate FiO2 06/22/17 08:00 109 06/22/17 07:55 20 06/22/17 07:00 113 06/22/17 07:00 97.6 113 20 128/78 (95) 98 06/22/17 07:00 109 06/22/17 06:00 104 06/22/17 05:00 106 06/22/17 04:00 97 06/22/17 03:20 98.0 94 18 96/63 (74) 100 06/22/17 03:20 94 06/22/17 03:00 95 06/22/17 02:00 92 06/22/17 01:00 94 06/22/17 00:00 95 06/21/17 23:20 97.6 97 18 111/63 (79) 97 06/21/17 23:20 97 06/21/17 23:00 97 06/21/17 22:00 88 06/21/17 21:00 90 06/21/17 20:00 92 06/21/17 19:55 95 Nasal Cannula 3.00 06/21/17 19:45 97.8 89 18 97/53 (68) 100 06/21/17 19:45 88 06/21/17 19:00 97 06/21/17 18:00 88 06/21/17 17:00 89 06/21/17 16:00 91 06/21/17 15:00 98.8 89 16 97 06/21/17 15:00 90 06/21/17 14:00 89 06/21/17 13:00 83 06/21/17 12:00 92 06/21/17 11:00 98.0 94 18 98 06/21/17 11:00 92 06/21/17 10:00 97 Labs: Laboratory Tests Test 06/22/17 04:31 White Blood Count 10.2 TH/MM3 (4.0-11.0) Red Blood Count 3.81 MIL/MM3 (4.50-5.90) Hemoglobin 10.6 GM/DL (13.0-17.0) Hematocrit 33.0 % (39.0-51.0) Mean Corpuscular Volume 86.7 FL (80.0-100.0) Mean Corpuscular Hemoglobin 27.7 PG (27.0-34.0) Mean Corpuscular Hemoglobin Concent 32.0 % (32.0-36.0) Red Cell Distribution Width 17.9 % (11.6-17.2) Platelet Count 195 TH/MM3 (150-450) Mean Platelet Volume 9.1 FL (7.0-11.0) Blood Urea Nitrogen 18 MG/DL (7-18) Creatinine 0.72 MG/DL (0.60-1.30) Random Glucose 87 MG/DL (74-106) Calcium Level 8.5 MG/DL (8.5-10.1) Sodium Level 137 MEQ/L (136-145) Potassium Level 4.3 MEQ/L (3.5-5.1) Chloride Level 100 MEQ/L (98-107) Carbon Dioxide Level 28.0 MEQ/L (21.0-32.0) Anion Gap 9 MEQ/L (5-15) Estimat Glomerular Filtration Rate 111 ML/MIN (>89) Result Diagram: 06/22/1743006/22/17430 Telemetry: sinus tach (1) Cardiomyopathy Plan: EF 25-30% severe MR low dose jeremi and BB (2) S/P CABG x 3 Plan: ASA, statin OOB as tolerated pulm toileting nebs, ezpap martín 02 for sat > 92% chest tube removed without difficulty (3) S/P mitral valve replacement with composite graft (4) Mitral regurgitation (5) CHF (congestive heart failure) Plan: on lasix daily (6) Combined systolic and diastolic congestive heart failure, NYHA class 4 Plan: BB and JEREMI as tolerated Problem Qualifiers (1) CHF (congestive heart failure): Qualified Codes: I50.9 - Heart failure, unspecified Luba Gillette Jun 22, 2017 09:59
[2017-06-22] MEDS ORDERED: POTASSIUM CHLORIDE 20 MEQ CONTROLLED RELEASE TAB PO SCH (11:00)
--- NOTE | 2017-06-22 11:24 | RADRPT ---
EXAM DATE/TIME: 06/22/2017 10:58 [facility] COMPARISON: CHEST SINGLE AP, June 17, 2017, 4:46. INDICATIONS : Post chest tube removal. Rule out pneumothorax. MEDICAL HISTORY : SURGICAL HISTORY : CABG. ENCOUNTER: Subsequent ACUITY: 4 - 6 days PAIN SCORE: 7/10 LOCATION: Bilateral chest FINDINGS: 2 portable frontal views of the chest show median sternotomy wires and mild cardiomegaly. No pulmonar y vascular engorgement. Lungs are clear. No effusions. Old right-sided rib fractures. Old left clavic ular fracture. There is a tiny apical pneumothorax. Left chest tube is been removed. CONCLUSION: 1. Tiny left apical pneumothorax following left-sided chest tube removal. 2. Cardiomegaly. Dennis Rowan Jr., MD on June 22, 2017 at 11:09 Board Certified Radiologist. This report was verified electronically.
[2017-06-22] MEDS ORDERED: MAGNESIUM SULFATE 1 GM PREMIX 100 ML IV ONE (17:00)
[2017-06-22] MEDS: SENNOSIDES 8.6 MG TAB PO SCH (20:22)
[2017-06-23] VITALS (12 sets, daily range): BP systolic 106–118; BP diastolic 58–72; PULSE 88–110; RESP 19–22; TEMP 97.7–98.1; O2SAT 99–100
[2017-06-23] MEDS: oxyCODONE/ACETAMINOPHEN 5 MG/325 MG TAB PO PRN ×4 (03:02→11:59)
[2017-06-23] MEDS: PANTOPRAZOLE SOD 40 MG DELAYED RELEASE TAB PO SCH (05:49)
--- NOTE | 2017-06-23 06:49 | RADRPT ---
EXAM DATE/TIME: 06/23/2017 04:35 [facility] COMPARISON: CHEST SINGLE AP, June 22, 2017, 10:58. INDICATIONS : Short of breath. MEDICAL HISTORY : None. SURGICAL HISTORY : CABG. ENCOUNTER: Subsequent ACUITY: 2 weeks PAIN SCORE: 0/10 LOCATION: Bilateral chest FINDINGS: A single view of the chest demonstrates tiny left apical pneumothorax. Cardiomegaly and previous CABG . Old right-sided rib fractures and old left clavicle fracture. Osseous structures are intact. CONCLUSION: 1. Tiny left apical pneumothorax, unchanged. 2. Cardiomegaly and CABG. Rich Gonzalez MD on June 23, 2017 at 6:46 Board Certified Radiologist. This report was verified electronically.
[2017-06-23] MEDS: METHOCARBAMOL 500 MG TAB PO PRN (07:46)
[2017-06-23] MEDS: INSULIN ASPART SUPPLEMENTAL SCALE SQ SCH (08:00)
[2017-06-23] MEDS: POLYETHYLENE GLYCOL 17 GM PKG PO SCH (08:55)
[2017-06-23] MEDS: MAGNESIUM HYDROXIDE SUSP 30 ML CUP PO SCH (08:55)
[2017-06-23] MEDS: DOCUSATE SODIUM 50 MG/SENNA 8.6 MG TAB PO SCH (08:58)
[2017-06-23] MEDS: ATORVASTATIN 40 MG TAB PO SCH (08:58)
[2017-06-23] MEDS: ASPIRIN 81 MG CHEW TAB PO SCH (08:58)
[2017-06-23] MEDS: GABAPENTIN 300 MG CAP PO SCH (08:58)
[2017-06-23] MEDS: MULTIVITAMINS/MINERALS THERAPEUTIC TAB PO SCH (08:58)
[2017-06-23] MEDS ORDERED: FUROSEMIDE 40 MG/4 ML VIAL IV PUSH SCH (09:00)
[2017-06-23] MEDS: SODIUM CHLORIDE 0.9% FLUSH 10 ML FLUSH IV FLUSH SCH (09:00)
[2017-06-23] MEDS ORDERED: METOPROLOL TARTRATE 25 MG TAB PO SCH (09:00)
[2017-06-23] MEDS ORDERED: ATOR40TA16 PO (10:28)
[2017-06-23] MEDS ORDERED: CARV3.125 PO (10:28)
[2017-06-23] MEDS ORDERED: THERM PO (10:28)
[2017-06-23] MEDS ORDERED: ENAL2.5T PO (10:28)
[2017-06-23] MEDS ORDERED: ASPI81CH25 PO (10:28)
[2017-06-23] MEDS ORDERED: SENN1TAB PO (10:28)
[2017-06-23] MEDS ORDERED: POLY17S PO (10:28)
[2017-06-23] MEDS ORDERED: PLAV75TA29 PO (10:28)
[2017-06-23] MEDS ORDERED: OXYC1TAB63 PO (10:28)
--- NOTE | 2017-06-23 16:36 | HHI.DS ---
Discharge Summary Admission Date Jun 11, 2017 at 05:06 Discharge Date: Jun 23, 2017 Admitting Diagnosis CHF , CAD, Mitral valve regurgitation (1) Mitral regurgitation Diagnosis: Principal ICD Codes: I34.0 - Nonrheumatic mitral (valve) insufficiency Status: Chronic (2) Cardiomyopathy Diagnosis: Principal ICD Codes: I42.9 - Cardiomyopathy, unspecified Status: Chronic (3) CAD (coronary artery disease) Diagnosis: Principal ICD Codes: I25.10 - Atherosclerotic heart disease of [place] coronary artery without angina pectoris Status: Chronic (4) Combined systolic and diastolic congestive heart failure, NYHA class 4 Diagnosis: Principal ICD Codes: I50.40 - Unspecified combined systolic (congestive) and diastolic ( congestive) heart failure Status: Chronic (5) S/P CABG x 3 Diagnosis: Secondary ICD Codes: Z95.1 - Presence of aortocoronary bypass graft (6) S/P mitral valve replacement with composite graft Diagnosis: Secondary ICD Codes: Z95.4 - Presence of other heart-valve replacement Procedures CABG x 3 06/16 NEGRON to LAD - good SVG to D1 - good SVG to PDA - good Mitral valve repair with a [address] [place] BRUNO Brief History 62-year-old male with a past medical history of COPD and chronic back pain who presented for shortness of breath. He has been having shortness of breath seemed he was diagnosed with COPD by his PCP, Dr. Collins. He does not take any medications at home for COPD. He does continue to smoke. He has a chronic dry cough, unchanged. He was taken to cardiac catheterization lab by Dr. Clinton with findings of Severe three-vessel [place] coronary artery disease, Severely reduced left ventricular systolic function with estimated EF 25%, 3+ mitral regurgitation, and Mild pulmonary hypertension. Bruno completed today EF 25-30% severe systolic dysfunction ,severe MR Combined systolic and diastolic congestive heart failure, NYHA class 4 Mitral regurgitation Cardiomyopathy CAD (coronary artery disease) CBC/BMP: 06/22/17 0431 06/22/17 0431 Significant Findings Laboratory Tests Test 06/22/17 04:31 Red Blood Count 3.81 MIL/MM3 (4.50-5.90) Hemoglobin 10.6 GM/DL (13.0-17.0) Hematocrit 33.0 % (39.0-51.0) Red Cell Distribution Width 17.9 % (11.6-17.2) Imaging Last Impressions Chest X-Ray 06/23/17 0600 Signed Impressions: Service Date/Time: Friday, June 23, 2017 04:35 - CONCLUSION: 1. Tiny left apical pneumothorax, unchanged. 2. Cardiomegaly and CABG. Rich Gonzalez MD Liver Ultrasound 06/14/17 0000 Signed Impressions: Service Date/Time: Wednesday, June 14, 2017 11:42 - CONCLUSION: 1. No evidence of gallstones or biliary tract obstruction. Mild thickening of the gallbladder wall suggestive of chronic gallbladder disease. 2. Bilateral pleural effusions. 3. Mild splenomegaly. Julio Cesar Bautista MD Lung Scan-VQ Nuclear Medicine 06/12/17 0000 Signed Impressions: Service Date/Time: Monday, June 12, 2017 12:23 - CONCLUSION: Low probably for pulmonary embolism. Dyspnea is related to ventilation and not perfusion. Allan Morin MD FACR Lower Extremity Ultrasound 06/12/17 0000 Signed Impressions: Service Date/Time: Monday, June 12, 2017 19:05 - CONCLUSION: Venous mapping as delineated above. Juan Miguel Ayala MD Carotid Artery Ultrasound 06/12/17 0000 Signed Impressions: Service Date/Time: Monday, June 12, 2017 19:15 - CONCLUSION: No significant stenosis is seen. Juan Miguel Ayala MD PE at Discharge GENERAL: SKIN: Warm and dry. incision intact to leg and sternum, well approximated HEAD: Normocephalic. EYES: No scleral icterus. No injection or drainage. NECK: Supple, trachea midline. No JVD or lymphadenopathy. CARDIOVASCULAR: Regular rate and rhythm without murmurs, gallops, or rubs. RESPIRATORY: Breath sounds equal bilaterally. No accessory muscle use. GASTROINTESTINAL: Abdomen soft, non-tender, nondistended. MUSCULOSKELETAL: No cyanosis, or edema. BACK: Nontender without obvious deformity. No CVA tenderness. Pt Condition on Discharge: Fair Discharge Disposition: Disch w/ Home Health Serv Discharge Instructions DIET: Follow Instructions for: Heart Healthy Diet Activities you can perform: Shower Only-No Bath Activities to avoid: Strenuous Activity, Driving Additional Activity Instructio: no lifting > 8 lbs Follow up Referrals: Appointment for Follow Up Cardiology with Tapan Clinton MD PCP Follow-up with Merle Collins MD Surgical with Nury Jarvis MD New Orders: 2D ECHO - 2 Weeks BASIC METABOLIC PROF - 2 Weeks CBC NO DIFF - 2 Weeks X-RAY CHEST PA & LAT - 2 Weeks New Medications: Carvedilol (Coreg) 3.125 Mg Tab 3.125 MG PO BID for Blood Pressure Management, #60 TAB 2 Refills Clopidogrel (Plavix) 75 Mg Tab 75 MG PO DAILY for Blood Clot Prevention, #30 TAB 2 Refills Aspirin (Aspirin Low Strength) 81 Mg Chew 81 MG PO DAILY for Blood Clot Prevention, #30 EA 2 Refills Atorvastatin (Atorvastatin) 40 Mg Tab 40 MG PO DAILY for Cholesterol Management, #30 TAB 2 Refills Enalapril (Enalapril) 2.5 Mg Tab 2.5 MG PO DAILY for Blood Pressure Management, #30 TAB 2 Refills Hold for SBP<100 Multiple Vitamins W/ Minerals (Thera M Plus) 1 Tab 1 TAB PO DAILY for multi vitamin, #30 TAB 2 Refills Oxycodone-Acetaminophen (Oxycodone-Acetaminophen) 5-325 mg Tab 1 TAB PO Q4H PRN for PAIN SCALE 1 TO 5, #40 TAB 0 Refills Polyethylene Glycol 3350 Powder (Polyethylene Glycol 3350 Powder) 17 Gram Pow 17 GM PO DAILY for Constipation, #30 PACKET 0 Refills Sennosides-Docusate Sodium (Senna Plus 8.6-50 mg) 8.6 Mg-50 Mg Tab 1 TAB PO BID for Constipation, #60 TAB 0 Refills Continued Medications: Gabapentin (Gabapentin) 600 Mg Tab 600 MG PO HS, #30 TAB 0 Refills Methocarbamol (Methocarbamol) 500 Mg Tab 350 MG PO BID for Muscle Spasm, #240 TAB 0 Refills Luba Gillette Jun 23, 2017 16:35
== END 2017-06-23 13:07 | disposition home health service (06) | DRG 216 ==
LOC: NEPE 02:59 → NEDA 05:06 → NEPGCP 06:01 → HCIS 06-12 13:54 → HCIN 06-12 20:16 → HCPC 06-13 20:35 → HCVI 06-16 18:44 → HCPC 06-18 21:25
PROVIDERS: ADMIT Thoracic Surgery (Cardiothoracic Vascular Surgery); ATTEND Thoracic Surgery (Cardiothoracic Vascular Surgery)
PROC: B2151ZZ Fluoroscopy of Left Heart using Low Osmolar Contrast (ICD-10-PCS; 2017-06-12)
PROC: B2111ZZ Fluoroscopy of Multiple Coronary Arteries using Low Osmolar Contrast (ICD-10-PCS; 2017-06-12)
PROC: B41F1ZZ Fluoroscopy of Right Lower Extremity Arteries using Low Osmolar Contrast (ICD-10-PCS; 2017-06-12)
PROC: 4A023N8 Measurement of Cardiac Sampling and Pressure, Bilateral, Percutaneous Approach (ICD-10-PCS; principal; 2017-06-12 11:45)
PROC: 5A1223Z Performance of Cardiac Pacing, Continuous (ICD-10-PCS; 2017-06-16)
PROC: 021109W Bypass Coronary Artery, Two Arteries from Aorta with Autologous Venous Tissue, Open Approach (ICD-10-PCS; 2017-06-16)
PROC: 06BQ4ZZ Excision of Left Saphenous Vein, Percutaneous Endoscopic Approach (ICD-10-PCS; 2017-06-16)
PROC: 02B Heart and Great Vessels, Excision (ICD-10-PCS; 2017-06-16)
PROC: 30233N1 Transfusion of Nonautologous Red Blood Cells into Peripheral Vein, Percutaneous Approach (ICD-10-PCS; 2017-06-16)
PROC: 30233R1 Transfusion of Nonautologous Platelets into Peripheral Vein, Percutaneous Approach (ICD-10-PCS; 2017-06-16)
PROC: B246ZZ4 Ultrasonography of Right and Left Heart, Transesophageal (ICD-10-PCS; 2017-06-16)
PROC: 02H63JZ Insertion of Pacemaker Lead into Right Atrium, Percutaneous Approach (ICD-10-PCS; 2017-06-16)
PROC: 02HK3JZ Insertion of Pacemaker Lead into Right Ventricle, Percutaneous Approach (ICD-10-PCS; 2017-06-16)
PROC: 02UG0JZ Supplement Mitral Valve with Synthetic Substitute, Open Approach (ICD-10-PCS; 2017-06-16 12:27)
PROC: 02100Z9 Bypass Coronary Artery, One Artery from Left Internal Mammary, Open Approach (ICD-10-PCS; 2017-06-16 12:27)
DX: I50.41 Acute combined systolic (congestive) and diastolic (congestive) heart failure (principal); J95.821 Acute postprocedural respiratory failure; I47.2 Ventricular tachycardia; I42.9 Cardiomyopathy, unspecified; I27.20 Pulmonary hypertension, unspecified; F17.210 Nicotine dependence, cigarettes, uncomplicated; D50.9 Iron deficiency anemia, unspecified; F32.9 Major depressive disorder, single episode, unspecified; J44.9 Chronic obstructive pulmonary disease, unspecified; G89.29 Other chronic pain; M54.9 Dorsalgia, unspecified; F41.9 Anxiety disorder, unspecified; E78.5 Hyperlipidemia, unspecified; I25.10 Atherosclerotic heart disease of native coronary artery without angina pectoris; I25.5 Ischemic cardiomyopathy; Y83.2 Surgical operation with anastomosis, bypass or graft as the cause of abnormal reaction of the patient, or of later complication, without mention of misadventure at the time of the procedure; I95.81 Postprocedural hypotension; R74.0 Nonspecific elevation of levels of transaminase and lactic acid dehydrogenase [LDH]; I08.1 Rheumatic disorders of both mitral and tricuspid valves; K82.9 Disease of gallbladder, unspecified; Z91.14 Patient's other noncompliance with medication regimen; Z23 Encounter for immunization
CPT/HCPCS: 36430; 36600; 71010; 76705; 78582; 80048; 80053; 80061; 80074; 80076; 81001; 82550; 82728; 82805; 82810; 82948; 83036; 83540; 83550; 83605; 83735; 83880; 84100; 84484; 85007; 85025; 85027; 85379; 85610; 85730; 86850; 86900; 86901; 86920; 87040; 87641; 88305; 90686; 90732; 93005; 93306; 93312; 93320; 93325; 93460; 93880; 93970; 93998; 94002; 94010; 94150; 94640; 94664; 94667; 94668; A9540; A9567; C1760; C1769; C1893; G0269; G8987-GP; G8988-GP; J0131; J0171; J0690; J1100; J1265; J1644; J1650; J1756; J1815; J1817; J1940; J2150; J2250; J2370; J2405; J2440; J2930; J3010; J3370; J3411; J3475; J3480; J7040; J7050; J7060; J7644; P9016; P9035; P9045; P9047; Q2038; Q9967